=== PATIENT | male | born 1945 | race Native Hawaiian/Other Pacific Islander ===

== ENCOUNTER 2016-06-01 07:51 | Inpatient (IN) | payer MEDICARE, OTHER ==
[~2016-06-01] VITALS: Ht 172.7 cm; Wt 68.0 kg
[2016-06-01] VITALS (13 sets, daily range): BP systolic 107–141; BP diastolic 56–77; PULSE 62–89; RESP 18; TEMP 97.4–97.9; O2SAT 98–100
--- NOTE | 2016-06-01 08:04 | PD ---
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 EMS noted the patient's heart rate to be in the 30s, and EKG performed by them shows a ventricular escape rhythm with a rate of 37. He was administered 1 mg of atropine with improvement in heart rate. The patient was apparently using the restroom when the event occurred. He remembers becoming diaphoretic. He denies chest pain. No injuries. No fevers or recent illness. No known history of cardiopulmonary disease. Heart rate is in the 80s upon arrival to the emergency department. He is here on vacation from [place]. Case discussed with the patient's daughter who is a physician in [place]. Her name is [place] and her phone number is [phone]. She tells me that the patient has a history of vasovagal episodes while using the restroom. She also tells me that according to the , this episode did not occur while he was in the restroom, and actually occurred while the patient was in bed. The patient' s found the patient to be unresponsive. [facility] Social History Tobacco Use: No Allergies-Medications (Allergen,Severity, Reaction): Coded Allergies: Penicillin (Verified Allergy, Severe, Anaphylaxis, 06/01/16) Aztreonam (Verified Allergy, Intermediate, Rash, 06/01/16) Bactrim (Verified Allergy, Intermediate, Rash, 06/01/16) Ciprofloxacin (Verified Allergy, Intermediate, Rash, 06/01/16) Clindamycin (Verified Allergy, Intermediate, Rash, 06/01/16) Levofloxacin (Verified Allergy, Intermediate, Rash, 06/01/16) Salicylates (Verified Allergy, Intermediate, RASH , 06/01/16) Sulfa (Verified Allergy, Intermediate, RASH, 06/01/16) Reported Meds & Prescriptions Reported Meds & Active Scripts Active Reported Aleve (Naproxen Sodium) 220 Mg Tab 220 Mg PO DAILY PRN Sf 5000 Plus (Sodium Fluoride (Dental)) 1.1 % Cre 1 Applic MT DAILY Systane Balance Yazidi Opth Drops (Propylene Glycol Opth Drops) 0.6% Soln 1 Drop EACH EYE TID PRN Levothyroxine (Levothyroxine Sodium) 75 Mcg Tab 75 Mcg PO DAILY Folic Acid 400 Mcg Tab 400 Mcg PO DAILY Bentyl (Dicyclomine HCl) 10 Mg Cap 10 Mg PO DAILY PRN Klonopin (Clonazepam) 1 Mg Tab 1 Mg PO TID PRN Centrum (Multiple Vitamins W/ Minerals) 1 Tab 1 Tab PO DAILY Azelastine Nasal [place] (Azelastine HCl) 0.15% [place] 1 [place] EACH NARE DIRECTED PRN To each nostril. Mapap (Acetaminophen) 500 Mg Tab 500 Mg PO TID PRN Review of Systems Except as stated in HPI: all other systems reviewed are Neg Physical Exam Narrative GENERAL: Pleasant, well-developed, well-nourished, awake, alert, oriented, no acute distress. SKIN: Warm and dry. No rash. HEAD: Atraumatic. Normocephalic. EYES: Pupils equal and round. No scleral icterus. No injection or drainage. ENT: Mucous membranes pink and moist. NECK: Trachea midline. No JVD. CARDIOVASCULAR: Regular rate and rhythm. RESPIRATORY: No accessory muscle use. Clear to auscultation. Breath sounds equal bilaterally. GASTROINTESTINAL: Abdomen soft, non-tender, nondistended. MUSCULOSKELETAL: No obvious deformities. No clubbing. No cyanosis. No edema. NEUROLOGICAL: Awake and alert. No obvious cranial nerve deficits. Motor grossly within normal limits. Normal speech. PSYCHIATRIC: Appropriate mood and affect; insight and judgment normal. Data Data Last Documented VS Vital Signs Date Time Temp Pulse Resp B/P Pulse Ox O2 Delivery O2 Flow Rate FiO2 06/01/16 08:02 97.9 80 18 122/70 99 Room Air Orders Electrocardiogram (06/01/16 07:58) Basic Metabolic Panel (Bmp) (06/01/16 07:58) Ckmb (Isoenzyme) Profile (06/01/16 07:58) Complete Blood Count With Diff (06/01/16 07:58) Magnesium (Mg) (06/01/16 07:58) Prothrombin Time / Inr (Pt) (06/01/16 07:58) Act Partial Throm Time (Ptt) (06/01/16 07:58) Troponin I (06/01/16 07:58) Chest, Single Ap (06/01/16 07:58) Ecg Monitoring (06/01/16 07:58) Iv Access Insert/Monitor (06/01/16 07:58) Oximetry (06/01/16 07:58) Thyroid Stimulating Hormone (06/01/16 07:58) Free Thyroxine (T4) (06/01/16 07:58) CKMB (06/01/16 08:15) CKMB% (06/01/16 08:15) Admit Order (Ed Use Only) (06/01/16 09:25) Labs Laboratory Tests Test 06/01/16 08:15 White Blood Count 5.5 TH/MM3 Red Blood Count 4.25 MIL/MM3 Hemoglobin 12.3 GM/DL Hematocrit 36.6 % Mean Corpuscular Volume 86.3 FL Mean Corpuscular Hemoglobin 28.9 PG Mean Corpuscular Hemoglobin 33.5 % Concent Red Cell Distribution Width 12.9 % Platelet Count 217 TH/MM3 Mean Platelet Volume 8.2 FL Neutrophils (%) (Auto) 45.7 % Lymphocytes (%) (Auto) 36.0 % Monocytes (%) (Auto) 8.6 % Eosinophils (%) (Auto) 8.8 % Basophils (%) (Auto) 0.9 % Neutrophils # (Auto) 2.5 TH/MM3 Lymphocytes # (Auto) 2.0 TH/MM3 Monocytes # (Auto) 0.5 TH/MM3 Eosinophils # (Auto) 0.5 TH/MM3 Basophils # (Auto) 0.1 TH/MM3 CBC Comment DIFF FINAL Differential Comment Prothrombin Time 10.6 SEC Prothromb Time International 1.0 RATIO Ratio Activated Partial 27.1 SEC Thromboplast Time Sodium Level 140 MEQ/L Potassium Level 4.2 MEQ/L Chloride Level 106 MEQ/L Carbon Dioxide Level 26.7 MEQ/L Anion Gap 7 MEQ/L Blood Urea Nitrogen 18 MG/DL Creatinine 1.04 MG/DL Estimat Glomerular Filtration 71 ML/MIN Rate Random Glucose 129 MG/DL Calcium Level 8.4 MG/DL Magnesium Level 2.2 MG/DL Total Creatine Kinase 170 U/L Creatine Kinase MB 2.5 NG/ML Troponin I LESS THAN 0.02 NG/ML Free Thyroxine 0.83 NG/DL Thyroid Stimulating Hormone 4.890 uIU/ML [address] [place] [address] Medical Decision Making Medical Screen Exam Complete: Yes Emergency Medical Condition: Yes Interpretation(s) EKG: Sinus, rate 71, normal axis, normal intervals, Q waves in inferior leads, no acute ischemic abnormality. Differential Diagnosis Bradycardia dysrhythmia, third-degree heart block, electrolyte abnormality, syncope, ACS, hypothyroidism Narrative Course The patient's daughter is a physician in [place]. Her name is [place] and her phone number is [phone]. Initial vital signs show heart rate 89, blood pressure 122/70, pulse ox 99% on room air, axillary temp of 97.9F. CBC is essentially unremarkable. CMP is essentially unremarkable. Cardiac enzymes are negative. TSH is 4.89, free T4 is 0.83. Chest x-ray interpreted by me shows no free air, no infiltrate, no pneumothorax. The patient was placed on telemetry monitoring while in the emergency Department in heart rate remained between 60 and 80, sinus. Because his initial EKG in the field showed a ventricular escape rhythm in the 30s, he will be admitted for overnight observation for telemetry monitoring. Case discussed with hospitalist Dr. Roblero who will admit the patient to his service. Diagnosis Primary Impression: Symptomatic bradycardia Additional Impression: Syncope Qualified Code: R55 - Syncope, unspecified syncope type Admitting Information Admitting Physician Requests: Observation Sam Buenrostro MD Jun 01, 2016 08:04
[2016-06-01 08:24] LABS: AUTOMATED NEUTROPHIL # 2.5 TH/MM3 (1.8-7.7); BASOPHIL # 0.1 TH/MM3 (0-0.2); BASOPHIL % 0.9 % (0.0-2.0); EOSINOPHIL # 0.5 TH/MM3 (0-0.4); EOSINOPHIL % 8.8 % (0.0-4.0); HEMATOCRIT 36.6 % (39.0-51.0); HEMO FLAGS DIFF FINAL; MEAN CELL VOLUME 86.3 FL (80.0-100.0); MEAN CORPUSCULAR HEMOGLOBIN 28.9 PG (27.0-34.0); MEAN CORPUSCULAR HGB CONC 33.5 % (32.0-36.0); MONO % 8.6 % (0.0-8.0); NEUT % 45.7 % (16.0-70.0); PLATELET COUNT 217 TH/MM3 (150-450); RED BLOOD COUNT 4.25 MIL/MM3 (4.50-5.90); RED CELL DISTRIBUTION WIDTH 12.9 % (11.6-17.2); WHITE BLOOD COUNT 5.5 TH/MM3 (4.0-11.0)
[2016-06-01 08:34] LABS: ANION GAP 7 MEQ/L (5-15); BICARBONATE 26.7 MEQ/L (21.0-32.0); BLOOD UREA NITROGEN 18 MG/DL (7-18); CHLORIDE 106 MEQ/L (98-107); GLOMERULAR FILTRATION RATE 71 ML/MIN (>89); MAGNESIUM 2.2 MG/DL (1.5-2.5); POTASSIUM 4.2 MEQ/L (3.5-5.1); SODIUM (NA) 140 MEQ/L (136-145)
[2016-06-01 08:38] LABS: CREATINE KINASE 170 U/L (39-308)
[2016-06-01 08:41] LABS: APTT (PATIENT) 27.1 SEC (24.3-30.1); PROTHROMBIN TIME - PATIENT 10.6 SEC (9.8-11.6)
[2016-06-01 08:50] LABS: CKMB 2.5 NG/ML (0.5-3.6)
[2016-06-01 08:54] LABS: FREE T4 0.83 NG/DL (0.76-1.46)
--- NOTE | 2016-06-01 09:15 | RADRPT ---
EXAM DATE/TIME: 06/01/2016 08:29 [facility] COMPARISON: No previous studies available for comparison. INDICATIONS : Syncope, Patient c/o nausea and vomiting. MEDICAL HISTORY : None. SURGICAL HISTORY : None. ENCOUNTER: Initial ACUITY: 1 day PAIN SCORE: 0/10 LOCATION: Bilateral chest FINDINGS: A single view of the chest demonstrates the lungs to be symmetrically aerated without evidence of mas s, infiltrate or effusion. The cardiomediastinal contours are unremarkable. Osseous structures are intact. CONCLUSION: Normal examination. Linda Gillette MD on June 01, 2016 at 9:14 Board Certified Radiologist. This report was verified electronically.
--- NOTE | 2016-06-01 09:50 | HHI.HP ---
[facility]Staff Admission Diagnosis symptomatic bradycardia, syncope Diagnoses: (1) Syncope (2) Symptomatic bradycardia (3) Hypothyroidism Chief Complaint: Syncopal episode Travel History International Travel<30 Days: No Contact w/Intl Traveler <30 Da: No Traveled to Known Affected Are: No History of Present Illness The patient is a 70-year-old male who presented to the emergency department following a syncopal episode. Apparently the patient was lying in bed and his found him to be unresponsive. As he awakened he was acting "strange". He does not recall any of the events surrounding this episode. He has had previous syncopal episodes over the past few years, generally associated with urination. He does not recall getting up to urinate this time. He denies chest pain or dyspnea. Has not had any lightheadedness or dizziness. He has a significant history for oral cancer requiring multiple surgeries. He is reportedly cancer free at this time. He denies any cardiac history. Review of Systems Constitutional: DENIES: Fever, Chills, Night Sweats Eyes: DENIES: Blurred vision, Vision loss Ears, nose, mouth, throat: DENIES: Hearing loss Respiratory: DENIES: Cough, Wheezing, Sputum production, Shortness of breath Cardiovascular: COMPLAINS OF: Syncope, DENIES: Chest pain, Palpitations, Dyspnea on Exertion, Lower Extremity Edema Gastrointestinal: DENIES: Abdominal pain, Constipation, Diarrhea, Nausea, Vomiting Genitourinary: DENIES: Urinary frequency, Urinary incontinence, Urgency, Hematuria, Dysuria, Nocturia Musculoskeletal: DENIES: Joint pain, Muscle aches Integumentary: DENIES: Pruritus, Rash Hematologic/lymphatic: DENIES: Bruising Neurologic: DENIES: Headache Past Family Social History Past Medical History Hypothyroidism History of oral cancer History of osteomyelitis Past Surgical History Multiple jaw surgeries including reconstructive surgery with flap taken from his left arm Left knee meniscus repair Reported Medications Tylenol as needed Synthroid 75 g daily Clonazepam 1 mg 3 times a day as needed Folic acid 1 mg daily Bentyl 10 mg as needed Multivitamin daily Allergies: Coded Allergies: Penicillin (Verified Allergy, Severe, Anaphylaxis, 06/01/16) Aztreonam (Verified Allergy, Intermediate, Rash, 06/01/16) Bactrim (Verified Allergy, Intermediate, Rash, 06/01/16) Ciprofloxacin (Verified Allergy, Intermediate, Rash, 06/01/16) Clindamycin (Verified Allergy, Intermediate, Rash, 06/01/16) Levofloxacin (Verified Allergy, Intermediate, Rash, 06/01/16) Salicylates (Verified Allergy, Intermediate, RASH , 06/01/16) Sulfa (Verified Allergy, Intermediate, RASH, 06/01/16) Family History Diabetes Father at age 90 with heart problems Social History Denies tobacco, alcohol, or illicit drug use. Physical Exam Vital Signs Vital Signs Date Time Temp Pulse Resp B/P Pulse Ox O2 Delivery O2 Flow Rate FiO2 06/01/16 08:02 97.9 80 18 122/70 99 Room Air 06/01/16 08:02 85 18 99 Room Air 06/01/16 07:55 97.9 89 18 122/70 99 Physical Exam GENERAL: Well-nourished, well-developed male in no acute distress. HEENT: Normocephalic, atraumatic. Pupils equal, round and reactive. Extraocular movements intact. No scleral icterus. No injection or drainage. Oropharynx is clear. Mucous membranes are moist. Left side of the face/mouth/neck show surgical changes. CARDIOVASCULAR: Bradycardic. RESPIRATORY: Clear to auscultation. No wheezes, rales, or rhonchi. Breathing is non-labored. GASTROINTESTINAL: Abdomen soft, non-tender, nondistended. EXTREMITIES: No lower extremity edema. No calf tenderness. PSYCH: Alert and oriented x 3. Laboratory Laboratory Tests Test 06/01/16 08:15 White Blood Count 5.5 Red Blood Count 4.25 Hemoglobin 12.3 Hematocrit 36.6 Mean Corpuscular Volume 86.3 Mean Corpuscular Hemoglobin 28.9 Mean Corpuscular Hemoglobin 33.5 Concent Red Cell Distribution Width 12.9 Platelet Count 217 Mean Platelet Volume 8.2 Neutrophils (%) (Auto) 45.7 Lymphocytes (%) (Auto) 36.0 Monocytes (%) (Auto) 8.6 Eosinophils (%) (Auto) 8.8 Basophils (%) (Auto) 0.9 Neutrophils # (Auto) 2.5 Lymphocytes # (Auto) 2.0 Monocytes # (Auto) 0.5 Eosinophils # (Auto) 0.5 Basophils # (Auto) 0.1 CBC Comment DIFF FINAL Differential Comment Prothrombin Time 10.6 Prothromb Time International 1.0 Ratio Activated Partial 27.1 Thromboplast Time Sodium Level 140 Potassium Level 4.2 Chloride Level 106 Carbon Dioxide Level 26.7 Anion Gap 7 Blood Urea Nitrogen 18 Creatinine 1.04 Estimat Glomerular Filtration 71 Rate Random Glucose 129 Calcium Level 8.4 Magnesium Level 2.2 Total Creatine Kinase 170 Creatine Kinase MB 2.5 Troponin I LESS THAN 0.02 Free Thyroxine 0.83 Thyroid Stimulating Hormone 4.890 3rd Gen Result Diagram: 06/01/16 0815 06/01/16 0815 Imaging Last Impressions Chest X-Ray 06/01/16 0758 Signed Impressions: Service Date/Time: Wednesday, June 01, 2016 08:29 - CONCLUSION: Normal examination. Linda Gillette MD Assessment and Plan Assessment and Plan 1. Syncope, symptomatic bradycardia: Patient noted to have heart rate in the 30s by Gris. Was given atropine 1 with improvement in heart rate to the 80s. Admit to [facility]. Consult cardiology. Monitor on telemetry. 2. Hypothyroidism: TSH is elevated. Continue Synthroid. 3. DVT prophylaxis: Heparin. I spoke with the patient's daughter, [place], who is a physician in [place]. She confirms much of her father's medical history including the oral cancer. She also describes the vasovagal episodes the patient has had in the past associated with urination. Her phone number is [phone]. Problem Qualifiers (1) Syncope: Qualified Code: R55 - Syncope, unspecified syncope type Juan Luis Roblero MD Jun 01, 2016 09:50
[2016-06-01] MEDS ORDERED: MAGNESIUM HYDROXIDE SUSP 30 ML CUP PO PRN (10:30)
[2016-06-01] MEDS ORDERED: ONDANSETRON HCL 4 MG/2 ML VIAL IVP PRN (10:30)
[2016-06-01] MEDS ORDERED: NALOXONE HCL 0.4 MG/ML AMP IV PRN (10:30)
[2016-06-01] MEDS ORDERED: SODIUM CHLORIDE 0.9% FLUSH 5 ML FLUSH FLUSH PRN (10:30)
[2016-06-01] MEDS ORDERED: [UNRECOGNIZED DRUG - CODE] (10:56)
[2016-06-01] MEDS ORDERED: FOLI400T GT (10:56)
[2016-06-01] MEDS ORDERED: DICY10 GT (10:56)
[2016-06-01] MEDS ORDERED: LEVO75TA3 GT (10:56)
[2016-06-01] MEDS ORDERED: MAPA500T GT (10:56)
[2016-06-01] MEDS ORDERED: AZEL0.055 EACH NARE (10:56)
[2016-06-01] MEDS ORDERED: SYSTSOL15 EACH EYE (10:56)
[2016-06-01] MEDS ORDERED: MULT-6 GT (10:56)
[2016-06-01] MEDS ORDERED: CLON1 GT (10:56)
[2016-06-01] MEDS ORDERED: SF 51.1C GT (10:57)
[2016-06-01] MEDS ORDERED: NAPR220T95 GT (10:59)
[2016-06-01] MEDS: HEPARIN SODIUM - SQ 10,000 UNITS/ML VIAL SQ SCH ×2 (11:23→18:27)
[2016-06-01 14:44] LABS: CREATINE KINASE 164 U/L (39-308)
--- NOTE | 2016-06-01 16:26 | MB ---
cc: ANDREY NUNEZ M.D. DATE OF CONSULTATION: 06/01/2016. REASON FOR CONSULTATION: Syncope, bradycardia. 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 The patient is unsure if he was in the bathroom or simply on his way to the bathroom in the hotel room when he lost consciousness. All he can recall is that when he regained consciousness, he was lying in bed with his pounding on his chest. He reports a long history (at least 10 years) of overall rare episodes of vasovagal syncope invariably associated with urination such that he now sits down on the toilet every time he urinates. The patient cannot recall any preceding nausea, pain, or discomfort prior to losing consciousness, although he was very diaphoretic after regaining consciousness. Since coming into the hospital, he feels "just fine." In the ambulance, he was noted to be in a junctional rhythm with heart rates in the 30s. He denies chest pain, shortness of breath, palpitations, paroxysmal nocturnal dyspnea, pedal edema, fevers. PAST MEDICAL HISTORY: 1. Hypothyroidism. 2. Recurrent oral cancers status post four operations for resection. He also has undergone radiation therapy and chemotherapy at some point. His last operation was also complicated by osteomyelitis in his mandibular region. CARDIAC MEDICATIONS AT HOME: None. ALLERGIES: 1. PENICILLIN. 2. AZTREONAM. 3. BACTRIM. 4. CIPRO. 5. CLINDAMYCIN. 6. LEVAQUIN.. 7. SALICYLATES. 8. SULFA. FAMILY HISTORY: Noncontributory. SOCIAL HISTORY: The patient denies any history of alcohol OR tobacco abuse. REVIEW OF SYSTEMS: Review of systems as in the history of present illness otherwise negative or noncontributory. He also denies headache, visual changes, unilateral weakness or numbness, abdominal pain, melena, dyspepsia. PHYSICAL EXAMINATION: VITAL SIGNS: On physical examination, his blood pressure is 107/56 with a pulse of 70, respirations 18. GENERAL: In general, he is a well-developed, well-nourished male in no acute distress. HEAD, EYES, EARS, NOSE, THROAT: On HEENT examination, jugular venous pressure is normal. Carotid pulses are 2+ bilaterally and without bruits. CHEST: Examination of the chest reveals clear lung bledsoe. CARDIAC: On cardiac examination, he has a regular rhythm and rate without S3, S4 or murmur. ABDOMEN: On abdominal examination, he has a soft, nontender abdomen. Bowel sounds are present. There is no definite hepatosplenomegaly. EXTREMITIES: Examination of the extremities reveals no clubbing, cyanosis or edema. LABORATORY DATA: Laboratory data includes WBCs 5.5, hemoglobin 12.3, platelets 217,000. Potassium 4.2, BUN 18, creatinine 1.04. Troponin less than 0.02. CK 170. IMAGING STUDIES: Chest x-ray shows no acute disease. IMPRESSION: Syncope, probable symptomatic bradycardia (junctional rhythm) in this 70-year-old male with a history of recurrent oral cancers and hypothyroidism. At this time, he remains in sinus rhythm. There is no evidence for acute coronary syndrome. An EKG obtained en route to the hospital does show junctional rhythm with heart rates of ~37. I suspect his loss of consciousness was due to a bradyarrhythmia. Even if it was a vasovagal episode, which he has had problems with in the past, the episode was associated with bradycardia and he would likely benefit from pacemaker therapy. I had also a long discussion with his daughter in [place], who is a neurologist, regarding pacemaker implantation. Overall I would recommend he undergo pacemaker implantation before going back home to [place]. The nature of pacemaker implantation and the potential risks including but not limited to cardiac perforation, pneumothorax, bleeding, infection have been outlined to the patient. He agrees to proceed. PLAN: Permanent pacemaker implantation this Saturday; in light of his multiple oral surgeries and potentially compromised oral airway will recommend elective intubation prior to the procedure. MD NITHIN Ann/LILO /3:59 PM /4:17 PM MTDD
[2016-06-01] MEDS: ACETAMINOPHEN 325 MG TAB PO PRN ×2 (17:10→23:20)
--- NOTE | 2016-06-01 17:52 | EKG ---
Date Performed: 06/01/2016 Time Performed: 08:43:18 PTAGE: 70 years EKG: Sinus rhythm WITH SINUS ARRHYTHMIA INFERIOR MYOCARDIAL INFARCTION ABNORMAL ECG NO PREVIOUS TRACING DOCTOR: Babs Garces Interpretating Date/Time 06/01/2016 17:51:25
[2016-06-01 20:39] LABS: CREATINE KINASE 167 U/L (39-308)
[2016-06-01] MEDS: SODIUM CHLORIDE 0.9% FLUSH 5 ML FLUSH FLUSH SCH (20:50)
[2016-06-02] VITALS (28 sets, daily range): BP systolic 132–167; BP diastolic 68–86; PULSE 54–84; RESP 16–20; TEMP 97.5–98.6; O2SAT 97–100
[2016-06-02] MEDS: HEPARIN SODIUM - SQ 10,000 UNITS/ML VIAL SQ SCH ×3 (03:17→19:57)
[2016-06-02 06:30] LABS: BICARBONATE 27.5 MEQ/L (21.0-32.0)
[2016-06-02 06:42] LABS: AUTOMATED NEUTROPHIL # 3.3 TH/MM3 (1.8-7.7); BASOPHIL # 0.1 TH/MM3 (0-0.2); BASOPHIL % 0.9 % (0.0-2.0); EOSINOPHIL # 0.6 TH/MM3 (0-0.4); EOSINOPHIL % 9.6 % (0.0-4.0); HEMATOCRIT 37.1 % (39.0-51.0); HEMO FLAGS DIFF FINAL; LYMPH % 24.7 % (9.0-44.0); LYMPHOCYTE # 1.4 TH/MM3 (1.0-4.8); MEAN CELL VOLUME 86.8 FL (80.0-100.0); MEAN CORPUSCULAR HEMOGLOBIN 29.2 PG (27.0-34.0); MEAN CORPUSCULAR HGB CONC 33.6 % (32.0-36.0); MONO % 9.3 % (0.0-8.0); NEUT % 55.5 % (16.0-70.0); PLATELET COUNT 222 TH/MM3 (150-450); RED BLOOD COUNT 4.28 MIL/MM3 (4.50-5.90); RED CELL DISTRIBUTION WIDTH 13.3 % (11.6-17.2); WHITE BLOOD COUNT 5.9 TH/MM3 (4.0-11.0)
[2016-06-02] MEDS: SODIUM CHLORIDE 0.9% FLUSH 5 ML FLUSH FLUSH SCH ×2 (09:00→20:10)
--- NOTE | 2016-06-02 09:19 | HHI.PR ---
Subjective Remarks Follow up bradycardia. Patient denies chest pain, dyspnea, lightheadedness. Objective Vitals Vital Signs Date Time Temp Pulse Resp B/P Pulse Ox O2 Delivery O2 Flow Rate FiO2 06/02/16 06:00 60 06/02/16 05:00 59 06/02/16 04:00 58 06/02/16 03:17 97.5 65 18 156/79 99 06/02/16 03:00 64 06/02/16 02:00 61 06/02/16 01:00 76 06/02/16 00:00 67 06/02/16 00:00 97.7 77 20 163/84 97 06/01/16 23:00 71 06/01/16 22:00 74 06/01/16 21:00 73 06/01/16 20:00 80 06/01/16 20:00 97.4 73 18 141/74 100 06/01/16 19:00 64 06/01/16 18:12 70 06/01/16 17:00 62 06/01/16 16:00 64 06/01/16 15:51 62 18 129/68 98 Room Air 06/01/16 11:20 71 18 107/56 100 Room Air 06/01/16 10:44 66 18 126/76 98 Room Air I/O 06/01/16 06/01/16 06/01/16 06/02/16 06/02/16 06/02/16 07:00 15:00 23:00 07:00 15:00 23:00 Intake Total 50 ml 780 ml Balance 50 ml 780 ml Intake Oral 240 ml IV Total 0 ml Tube Feeding 50 ml 480 ml Other 60 ml # Voids 2 # Bowel Movements 1 Result Diagram: 06/02/16 0546 06/02/16 0546 Imaging Last Impressions Chest X-Ray 06/01/16 0758 Signed Impressions: Service Date/Time: Wednesday, June 01, 2016 08:29 - CONCLUSION: Normal examination. Linda Gillette MD Objective Remarks General: No acute distress. Heart: Regular rate and rhythm. No murmur. Lungs: Clear to auscultation bilaterally. No wheezes, rales, or rhonchi. Breathing is nonlabored. Abdomen: Soft, nontender, nondistended. Extremities: No lower extremity edema. Psych: Alert and oriented. Urinary Catheter: No Vascular Central Line Catheter: No A/P Problem List: (1) Syncope ICD Code: R55 Status: Acute (2) Symptomatic bradycardia ICD Code: R00.1 Status: Acute (3) Hypothyroidism ICD Code: E03.9 Status: Chronic (4) History of oral cancer ICD Code: Z85.819 Status: Chronic Assessment and Plan 1. Syncope, symptomatic bradycardia: Patient noted to have heart rate in the 30s by EVAC. Was given atropine 1 with improvement in heart rate to the 80s. Continue telemetry monitoring. Appreciate cardiology recommendations. Planning for pacemaker placement on Saturday. Discussed with Dr. Davidson. 2. Hypothyroidism: TSH is elevated. Continue Synthroid. 3. DVT prophylaxis: Heparin. 4. History of oral cancer: Patient on tube feedings chronically. Problem Qualifiers (1) Syncope: Qualified Code: R55 - Syncope, unspecified syncope type Juan Luis Roblero MD Jun 02, 2016 09:19
--- NOTE | 2016-06-02 09:22 | PD.CARD.PN ---
Subjective Subjective Remarks Denies recurrent dizziness or syncope. No pain, dyspnea, palpitations. Slept well. Objective Medications Item Value Date Time Heparin Sodium 5,000 units 06/01/16 1100 (Porcine) Q8H/SQ 06/02/16 0317 (Heparin Inj) Vital Signs / I&O Vital Signs Date Time Temp Pulse Resp B/P Pulse Ox O2 Delivery O2 Flow Rate FiO2 06/02/16 06:00 60 06/02/16 05:00 59 06/02/16 04:00 58 06/02/16 03:17 97.5 65 18 156/79 99 06/02/16 03:00 64 06/02/16 02:00 61 06/02/16 01:00 76 06/02/16 00:00 67 06/02/16 00:00 97.7 77 20 163/84 97 06/01/16 23:00 71 06/01/16 22:00 74 06/01/16 21:00 73 06/01/16 20:00 80 06/01/16 20:00 97.4 73 18 141/74 100 06/01/16 19:00 64 06/01/16 18:12 70 06/01/16 17:00 62 06/01/16 16:00 64 06/01/16 15:51 62 18 129/68 98 Room Air 06/01/16 11:20 71 18 107/56 100 Room Air 06/01/16 10:44 66 18 126/76 98 Room Air I/O 06/01/16 06/01/16 06/01/16 06/02/16 06/02/16 06/02/16 07:00 15:00 23:00 07:00 15:00 23:00 Intake Total 50 ml 780 ml Balance 50 ml 780 ml Intake Oral 240 ml IV Total 0 ml Tube Feeding 50 ml 480 ml Other 60 ml # Voids 2 # Bowel Movements 1 Physical Exam GENERAL: Well developed, well nourished. No acute distress. HEENT: Jugular venous pressure is normal. CHEST: Lungs clear to auscultation bilaterally. Unlabored respiratory effort. CARDIAC: Regular rate and rhythm without S3, S4, or murmur. ABDOMEN: Soft, nontender, no hepatosplenomegaly. Bowel sounds present. EXTREMITIES: No clubbing, cyanosis, or edema. Laboratory Laboratory Tests Test 06/01/16 06/01/1606/02/17 14:09 19:56 05:46 Total Creatine Kinase 164 U/L 167 U/L Troponin I LESS THAN 0.02 LESS THAN 0.02 NG/ML NG/ML White Blood Count 5.9 TH/MM3 Red Blood Count 4.28 MIL/MM3 Hemoglobin 12.5 GM/DL Hematocrit 37.1 % Mean Corpuscular Volume 86.8 FL Mean Corpuscular Hemoglobin 29.2 PG Mean Corpuscular Hemoglobin 33.6 % Concent Red Cell Distribution Width 13.3 % Platelet Count 222 TH/MM3 Mean Platelet Volume 8.6 FL Neutrophils (%) (Auto) 55.5 % Lymphocytes (%) (Auto) 24.7 % Monocytes (%) (Auto) 9.3 % Eosinophils (%) (Auto) 9.6 % Basophils (%) (Auto) 0.9 % Neutrophils # (Auto) 3.3 TH/MM3 Lymphocytes # (Auto) 1.4 TH/MM3 Monocytes # (Auto) 0.5 TH/MM3 Eosinophils # (Auto) 0.6 TH/MM3 Basophils # (Auto) 0.1 TH/MM3 CBC Comment DIFF FINAL Differential Comment Sodium Level 141 MEQ/L Potassium Level 4.0 MEQ/L Chloride Level 105 MEQ/L Carbon Dioxide Level 27.5 MEQ/L Anion Gap 9 MEQ/L Blood Urea Nitrogen 20 MG/DL Creatinine 0.91 MG/DL Estimat Glomerular Filtration 82 ML/MIN Rate Random Glucose 96 MG/DL Calcium Level 8.7 MG/DL Assessment and Plan Problem List: (1) Symptomatic bradycardia Assessment and Plan: Stable overnight. No further syncope. Remains in NSR. The syncopal episode may have indeed been vasovagal mediated, but evidence suggests a cardioinhibitory component and he will likely benefit from pacemaker therapy. He also has a very long history of intermittent micturition syncope, also likely vasovagal mediated. REC permanent pacemaker insertion Saturday, will see patient PRN tomorrow Code Status full code Discussed Condition With patient and his daughter River Davidson MD Jun 02, 2016 09:22
[2016-06-02] MEDS ORDERED: PROPYLENE GLYCOL EACH EYE PRN (10:15)
[2016-06-02] MEDS: FOLIC ACID 1 MG TAB PO SCH (10:25)
--- NOTE | 2016-06-02 17:54 | EC ---
Study Study Date:06/02/2016 STUDY CONCLUSIONS SUMMARY - Procedure narrative: Transthoracic echocardiography. Image quality was suboptimal. The study was technically limited. Scanning was performed from the parasternal, apical, and subcostal acoustic windows. - Left ventricle: The cavity size was normal. Wall thickness was normal. Systolic function was vigorous. The estimated ejection fraction was in the range of 65% to 70%. - Aortic valve: Valve area: 2.14cm^2 (Vmax). - Mitral valve: Mild regurgitation. If LV function is below 40, please consider prescribing an ACEI or ARB or document rationale for non-use. PROCEDURE DATA STUDY STATUS: Elective. Procedure: Transthoracic echocardiography. Image quality was suboptimal. The study was technically limited. Scanning was performed from the parasternal, apical, and subcostal acoustic windows. Study completion: The patient tolerated the procedure well. Transthoracic echocardiography. M-mode, complete 2D, complete spectral Doppler, and color Doppler. Patient status: Inpatient. CARDIAC ANATOMY LEFT VENTRICLE: The cavity size was normal. Wall thickness was normal. Systolic function was vigorous. The estimated ejection fraction was in the range of 65% to 70%. Images were inadequate for LV wall motion assessment. AORTIC VALVE: Poorly visualized. Trileaflet; normal thickness leaflets. Doppler: Transvalvular velocity was within the normal range. There was no stenosis. No regurgitation. Valve area: 2.14cm^2 (Vmax). AORTA: Aortic root: The aortic root was normal in size. MITRAL VALVE: Structurally normal valve. Doppler: Transvalvular velocity was within the normal range. There was no evidence for stenosis. Mild regurgitation. Peak gradient: 2mm Hg (D). LEFT ATRIUM: The atrium was at the upper limits of normal in size. RIGHT VENTRICLE: The cavity size was normal. Wall thickness was normal. PULMONIC VALVE: Doppler: Transvalvular velocity was within the normal range. There was no evidence for stenosis. No regurgitation. TRICUSPID VALVE: Structurally normal valve. Doppler: Transvalvular velocity was within the normal range. Trace regurgitation. PULMONARY ARTERY: The main pulmonary artery was normal-sized. Systolic pressure was within the normal range. RIGHT ATRIUM: The atrium was normal in size. PERICARDIUM: There was no pericardial effusion. SYSTEMIC VEINS: Inferior vena cava: The vessel was normal in size. BASIC MEASUREMENTS ADULT NORMAL Left ventricle LV internal dimension, ED, chordal level, *38.8 mm 43-52 PLAX LV internal dimension, ES, chordal level, 25.8 mm 23-38 PLAX Fractional shortening, chordal level, PLAX 34 % >29 LV posterior wall thickness, ED 8.38 mm IVS/LVPW ratio, ED 1.07 <1.3 Ventricular septum Septal thickness, ED 8.94 mm Aortic valve Leaflet separation 20 mm 15-26 BASIC MEASUREMENTS ADULT NORMAL Aortic valve Leaflet separation 20 mm 15-26 Aorta Root diameter, ED 22 mm 20-37 Left atrium Anterior-posterior dimension, ES 40 mm 19-40 LA/aortic root ratio 1.82 DOPPLER MEASUREMENTS ADULT NORMAL Main pulmonary artery Pressure, S 21 mm Hg =30 Aortic valve Peak velocity, S 130 cm/s Valve area, Vmax 2.14 cm^2 Mitral valve Peak E-wave velocity 74 cm/s Peak A-wave velocity 84.9 cm/s Deceleration time 165 ms 150-230 Peak gradient, D 2 mm Hg Peak E/A ratio 0.9 Maximal regurgitant velocity 229 cm/s Tricuspid valve Regurgitant peak velocity 148 cm/s Peak RV-RA gradient, S 9 mm Hg Maximal regurgitant velocity 148 cm/s Systemic veins Estimated CVP 10 mm Hg Right ventricle RV pressure, S 21 mm Hg <30 LEGEND: Mean values are shown as u=mean value. Asterisk (*) sanchez values outside specified normal range. Prepared and signed by Mati Olivo [id number]
[2016-06-02] MEDS: ACETAMINOPHEN 325 MG TAB PO PRN (21:45)
[2016-06-03] VITALS (24 sets, daily range): BP systolic 143–166; BP diastolic 69–92; PULSE 59–86; RESP 16–18; TEMP 97.5–98; O2SAT 96–100
[2016-06-03] MEDS: HEPARIN SODIUM - SQ 10,000 UNITS/ML VIAL SQ SCH ×3 (03:33→20:23)
[2016-06-03] MEDS: LEVOTHYROXINE SODIUM 75 MCG TAB PO SCH (04:13)
[2016-06-03] MEDS: FOLIC ACID 1 MG TAB PO SCH (09:00)
--- NOTE | 2016-06-03 09:49 | HHI.PR ---
Subjective Remarks Follow up bradycardia. Patient states that he feels weak today. Denies chest pain, dyspnea. Objective Vitals Vital Signs Date Time Temp Pulse Resp B/P Pulse Ox O2 Delivery O2 Flow Rate FiO2 06/03/16 06:00 66 06/03/16 05:00 73 06/03/16 04:00 62 06/03/16 03:33 97.8 79 16 143/69 97 06/03/16 03:00 70 06/03/16 02:00 59 06/03/16 01:00 61 06/03/16 00:00 74 06/02/16 23:15 98.6 77 20 160/86 100 06/02/16 23:00 74 06/02/16 22:00 80 06/02/16 21:00 80 06/02/16 20:00 98.0 72 20 167/86 100 06/02/16 20:00 72 06/02/16 19:00 83 06/02/16 18:00 77 06/02/16 17:00 73 06/02/16 16:00 75 06/02/16 15:45 98.0 72 18 152/74 98 06/02/16 15:00 64 06/02/16 14:00 59 06/02/16 13:00 60 06/02/16 12:00 62 06/02/16 11:45 97.8 68 18 132/68 100 06/02/16 11:00 78 06/02/16 10:00 74 I/O 06/02/16 06/02/16 06/02/16 06/03/16 06/03/16 06/03/16 07:00 15:00 23:00 07:00 15:00 23:00 Intake Total 780 ml 1000 ml 980 ml Output Total 750 ml Balance 780 ml 250 ml 980 ml Intake Oral 240 ml 1000 ml 240 ml IV Total 0 ml Tube Feeding 480 ml 620 ml Other 60 ml 120 ml Output Urine Total 750 ml # Voids 2 2 2 # Bowel Movements 1 2 0 Result Diagram: 06/02/1646 06/02/16 0546 Objective Remarks General: No acute distress. Heart: Regular rate and rhythm. No murmur. Lungs: Clear to auscultation bilaterally. No wheezes, rales, or rhonchi. Breathing is nonlabored. Abdomen: Soft, nontender, nondistended. Extremities: No lower extremity edema. Psych: Alert and oriented. Urinary Catheter: No Vascular Central Line Catheter: No A/P Problem List: (1) Syncope ICD Code: R55 Status: Acute (2) Symptomatic bradycardia ICD Code: R00.1 Status: Acute (3) Hypothyroidism ICD Code: E03.9 Status: Chronic (4) History of oral cancer ICD Code: Z85.819 Status: Chronic Assessment and Plan 1. Syncope, symptomatic bradycardia: Patient noted to have heart rate in the 30s by EVAC. Was given atropine 1 with improvement in heart rate to the 80s. Continue telemetry monitoring. Appreciate cardiology recommendations. Planning for pacemaker placement tomorrow. 2. Hypothyroidism: TSH is elevated. Continue Synthroid. 3. DVT prophylaxis: Heparin. 4. History of oral cancer: Patient on tube feedings chronically. Problem Qualifiers (1) Syncope: Qualified Code: R55 - Syncope, unspecified syncope type Juan Luis Roblero MD Jun 03, 2016 09:49
--- NOTE | 2016-06-03 10:11 | PD.CARD.PN ---
Subjective Subjective Remarks Mild to moderate right sided headache. No nausea, abdominal pain. Slept well. No recurrent syncope, dizziness. No CP, dyspnea, palpitations. Objective Medications Item Value Date Time Heparin Sodium 5,000 units 06/01/16 1100 (Porcine) Q8H/SQ 06/03/16 0333 (Heparin Inj) Vital Signs / I&O Vital Signs Date Time Temp Pulse Resp B/P Pulse Ox O2 Delivery O2 Flow Rate FiO2 06/03/16 06:00 66 06/03/16 05:00 73 06/03/16 04:00 62 06/03/16 03:33 97.8 79 16 143/69 97 06/03/16 03:00 70 06/03/16 02:00 59 06/03/16 01:00 61 06/03/16 00:00 74 06/02/16 23:15 98.6 77 20 160/86 100 06/02/16 23:00 74 06/02/16 22:00 80 06/02/16 21:00 80 06/02/16 20:00 98.0 72 20 167/86 100 06/02/16 20:00 72 06/02/16 19:00 83 06/02/16 18:00 77 06/02/16 17:00 73 06/02/16 16:00 75 06/02/16 15:45 98.0 72 18 152/74 98 06/02/16 15:00 64 06/02/16 14:00 59 06/02/16 13:00 60 06/02/16 12:00 62 06/02/16 11:45 97.8 68 18 132/68 100 06/02/16 11:00 78 I/O 06/02/16 06/02/16 06/02/16 06/03/16 06/03/16 06/03/16 07:00 15:00 23:00 07:00 15:00 23:00 Intake Total 780 ml 1000 ml 980 ml Output Total 750 ml Balance 780 ml 250 ml 980 ml Intake Oral 240 ml 1000 ml 240 ml IV Total 0 ml Tube Feeding 480 ml 620 ml Other 60 ml 120 ml Output Urine Total 750 ml # Voids 2 2 2 # Bowel Movements 1 2 0 Physical Exam GENERAL: Well developed, well nourished. No acute distress. HEENT: Jugular venous pressure is normal. CHEST: Lungs clear to auscultation bilaterally. Unlabored respiratory effort. CARDIAC: Regular rate and rhythm without S3, S4, or murmur. ABDOMEN: Soft, nontender, no hepatosplenomegaly. Bowel sounds present. EXTREMITIES: No clubbing, cyanosis, or edema. Assessment and Plan Problem List: (1) Symptomatic bradycardia Assessment and Plan: Stable overnight. No further syncope. Remains in NSR. The syncopal episode may have indeed been vasovagal mediated, but evidence suggests a cardioinhibitory component and he will likely benefit from pacemaker therapy. He also has a very long history of intermittent micturition syncope, also likely vasovagal mediated. Echo yesterday unremarkable. REC permanent pacemaker insertion Saturday; will rec prophylactic intubation for the surgery given his small airway as a result of multiple surgeries for CA Code Status full code Discussed Condition With patient River Davidson MD Jun 03, 2016 10:11
[2016-06-03] MEDS: SODIUM CHLORIDE 0.9% FLUSH 5 ML FLUSH FLUSH SCH ×2 (14:13→21:00)
[2016-06-03] MEDS: MULTIVITAMINS/MINERALS THERAPEUTIC TAB PEG SCH (14:13)
[2016-06-03] MEDS: ACETAMINOPHEN 325 MG TAB PO PRN ×2 (14:23→23:40)
[2016-06-03] MEDS: POVIDONE IODINE 5% (ANTISEPSIS KIT) 4 APPLICATIONS TOPICAL SCH (21:00)
[2016-06-03] MEDS: CHLORHEXIDINE GLUCONATE 2 % 1 PACK (2 CLOTHS) TOPICAL SCH (21:00)
[2016-06-03] MEDS: MUPIROCIN 2% OINT 1 APPLIC/GM SYR EACH NARE SCH (21:55)
[2016-06-04] VITALS (22 sets, daily range): BP systolic 107–186; BP diastolic 56–88; PULSE 52–103; RESP 16–23; TEMP 97.4–98; O2SAT 98–100
[2016-06-04] MEDS: HEPARIN SODIUM - SQ 10,000 UNITS/ML VIAL SQ SCH ×3 (03:00→20:42)
[2016-06-04] MEDS ORDERED: ATROPINE SULFATE 1 MG/10 ML SYRINGE ONE (03:27)
[2016-06-04] MEDS ORDERED: ATROPINE SULFATE 1 MG/ML VIAL IV PUSH ONE (03:45)
[2016-06-04] MEDS: SODIUM CHLOR 0.9% 1000 ML INJ 1,000 ML IV SCH ×2 (03:45→15:30)
[2016-06-04] MEDS ORDERED: ATROPINE SULFATE 1 MG/ML VIAL IV PUSH PRN (03:45)
[2016-06-04] MEDS ORDERED: SODIUM CHLOR 0.9% 250 ML INJ 250 ML IV ONE (03:45)
[2016-06-04] MEDS ORDERED: INSULIN HUMAN REGULAR 1,000 UNITS/10 ML VIAL SQ PRN (04:45)
[2016-06-04] MEDS: LACTATED RINGER'S 1000 ML IV SCH (04:45)
[2016-06-04] MEDS ORDERED: SODIUM CHLORID 0.9% 500 ML IV SCH (04:45)
[2016-06-04] MEDS: LEVOTHYROXINE SODIUM 75 MCG TAB PO SCH (06:30)
--- NOTE | 2016-06-04 08:16 | HHI.PR ---
Subjective Remarks Follow up bradycardia. Patient had another episode overnight of bradycardia into the 30s. He was given IV fluid bolus and atropine. Heart rate improved to the 60s. Patient was responsive the entire time. He has no complaints at this time. Denies chest pain, palpitations, dyspnea. Objective Vitals Vital Signs Date Time Temp Pulse Resp B/P Pulse Ox O2 Delivery O2 Flow Rate FiO2 06/04/16 07:00 57 06/04/16 06:00 65 06/04/16 05:00 52 06/04/16 04:00 84 18 141/75 98 06/04/16 04:00 79 06/04/16 03:00 53 06/04/16 02:00 63 06/04/16 01:00 58 06/04/16 00:00 64 06/04/16 00:00 98.0 70 18 146/80 100 06/03/16 23:00 68 06/03/16 20:00 97.5 63 18 166/86 100 06/03/16 20:00 73 06/03/16 19:00 70 06/03/16 18:00 72 06/03/16 17:00 74 06/03/16 16:00 68 06/03/16 15:30 97.6 83 18 158/81 97 06/03/16 15:00 66 06/03/16 14:00 72 06/03/16 13:00 72 06/03/16 12:00 70 06/03/16 12:00 98.0 68 18 158/84 96 06/03/16 11:00 72 06/03/16 10:00 64 06/03/16 09:00 86 I/O 06/03/16 06/03/16 06/03/16 06/04/16 06/04/16 06/04/16 07:00 15:00 23:00 07:00 15:00 23:00 Intake Total 980 ml 1060 ml 488 ml Output Total 900 ml Balance 980 ml 160 ml 488 ml Intake Oral 240 ml 100 ml IV Total 488 ml Tube Feeding 620 ml 960 ml Other 120 ml Output Urine Total 900 ml # Voids 2 3 # Bowel Movements 0 2 Result Diagram: 06/02/16 0546 06/02/16 0546 Imaging Last Impressions Chest X-Ray 06/01/16 0758 Signed Impressions: Service Date/Time: Wednesday, June 01, 2016 08:29 - CONCLUSION: Normal examination. Linda Gillette MD Objective Remarks General: No acute distress. Heart: Regular rate and rhythm. No murmur. Lungs: Clear to auscultation bilaterally. No wheezes, rales, or rhonchi. Breathing is nonlabored. Abdomen: Soft, nontender, nondistended. PEG tube in place. Extremities: No lower extremity edema. Psych: Alert and oriented. Urinary Catheter: No Vascular Central Line Catheter: No A/P Problem List: (1) Syncope ICD Code: R55 Status: Acute (2) Symptomatic bradycardia ICD Code: R00.1 Status: Acute (3) Hypothyroidism ICD Code: E03.9 Status: Chronic (4) History of oral cancer ICD Code: Z85.819 Status: Chronic Assessment and Plan 1. Syncope, symptomatic bradycardia: Patient noted to have heart rate in the 30s by EVAC. Was given atropine 1 with improvement in heart rate to the 80s. Had another episode overnight. Continue telemetry monitoring. Appreciate cardiology recommendations. Planning for pacemaker placement this morning. 2. Hypothyroidism: TSH is elevated. Continue Synthroid. 3. DVT prophylaxis: Heparin. 4. History of oral cancer: Patient on tube feedings chronically. Problem Qualifiers (1) Syncope: Qualified Code: R55 - Syncope, unspecified syncope type Juan Luis Roblero MD Jun 04, 2016 08:16
[2016-06-04] MEDS: FOLIC ACID 1 MG TAB PO SCH (09:38)
[2016-06-04] MEDS: SODIUM CHLORIDE 0.9% FLUSH 5 ML FLUSH FLUSH SCH ×2 (09:38→20:42)
[2016-06-04] MEDS: ACETAMINOPHEN 325 MG TAB PO PRN (09:38)
[2016-06-04] MEDS: MULTIVITAMINS/MINERALS THERAPEUTIC TAB PEG SCH (09:38)
[2016-06-04] MEDS ORDERED: VANCOMYCIN INJ 1,000 MG in SODIUM CHLOR 0.9% 250 ML INJ 250 ML IV SCH (10:00)
--- NOTE | 2016-06-04 10:44 | PD.CARD.PN ---
Subjective Subjective Remarks Denies CP, dyspnea, palpitations. Episode of diaphoresis, nausea, generalized weakness, dizziness for about 10-15 min early this morning onset just as about to urinate. No syncope. Objective Medications No cardiac medications. Vital Signs / I&O Vital Signs Date Time Temp Pulse Resp B/P Pulse Ox O2 Delivery O2 Flow Rate FiO2 06/04/16 09:12 97.6 74 16 158/80 99 06/04/16 07:00 57 06/04/16 06:00 65 06/04/16 05:00 52 06/04/16 04:00 84 18 141/75 98 06/04/16 04:00 79 06/04/16 03:00 53 06/04/16 02:00 63 06/04/16 01:00 58 06/04/16 00:00 64 06/04/16 00:00 98.0 70 18 146/80 100 06/03/16 23:00 68 06/03/16 20:00 97.5 63 18 166/86 100 06/03/16 20:00 73 06/03/16 19:00 70 06/03/16 18:00 72 06/03/16 17:00 74 06/03/16 16:00 68 06/03/16 15:30 97.6 83 18 158/81 97 06/03/16 15:00 66 06/03/16 14:00 72 06/03/16 13:00 72 06/03/16 12:00 70 06/03/16 12:00 98.0 68 18 158/84 96 06/03/16 11:00 72 I/O 06/03/16 06/03/16 06/03/16 06/04/16 06/04/16 06/04/16 07:00 15:00 23:00 07:00 15:00 23:00 Intake Total 980 ml 1060 ml 488 ml Output Total 900 ml Balance 980 ml 160 ml 488 ml Intake Oral 240 ml 100 ml IV Total 488 ml Tube Feeding 620 ml 960 ml Other 120 ml Output Urine Total 900 ml # Voids 2 3 # Bowel Movements 0 2 Physical Exam GENERAL: Well developed, well nourished. No acute distress. HEENT: Jugular venous pressure is normal. CHEST: Lungs clear to auscultation bilaterally. Unlabored respiratory effort. CARDIAC: Regular rate and rhythm without S3, S4, or murmur. ABDOMEN: Soft, nontender, no hepatosplenomegaly. Bowel sounds present. EXTREMITIES: No clubbing, cyanosis, or edema. Assessment and Plan Problem List: (1) Symptomatic bradycardia Assessment and Plan: Episode of marked bradycardia HR 30 last night associated with symptoms suggestive of vasovagal mediated event precipitated it appears by urination. Discussed at great length with family permanent pacemaker, benefits , risks, procedure. Hopefully with pacemaker therapy his episodes of syncope/ near syncope with urination will resolve though I have stressed to them there is a possibility of continued episodes despite pacemaker therapy if he has persistent vasodilator mediated hypotension. Echo unremarkable. Number of questions answered today. REC permanent pacemaker insertion this morning, probable discharge tomorrow if stable, f/u with me later this week Code Status full code Discussed Condition With patient and family River Davidson MD Jun 04, 2016 10:44
[2016-06-04] MEDS ORDERED: KETAMINE HCL 500 MG/5 ML VIAL ONE (11:07)
[2016-06-04] MEDS ORDERED: MIDAZOLAM HCL 2 MG/2 ML VIAL ONE ×2 (12:18→12:39)
[2016-06-04] MEDS ORDERED: traMADol HCL 50 MG TAB PO PRN (12:45)
[2016-06-04] MEDS ORDERED: ZOLPIDEM TARTRATE 5 MG TAB PO PRN (12:45)
[2016-06-04] MEDS ORDERED: DO NOT ADM ANY ANTICOAGULANT DRUGS XX PRN (13:45)
--- NOTE | 2016-06-04 14:11 | RADRPT ---
EXAM DATE/TIME: 06/04/2016 12:58 [facility] COMPARISON: CHEST SINGLE AP, June 01, 2016, 8:29. INDICATIONS : Pneumothorax MEDICAL HISTORY : Hypertension. SURGICAL HISTORY : Pacemaker. ENCOUNTER: Initial ACUITY: 1 day PAIN SCORE: 0/10 LOCATION: Chest FINDINGS: Pacer is in good position. Heart and pulmonary vascularity are normal. Portions of the bony skeleto n visualized reveals only degenerative changes. CONCLUSION: 1. Negative chest for pneumothorax. 2. Pacer is in good position. Juan Luis Stewart MD FACR on June 04, 2016 at 13:58 Board Certified Radiologist. This report was verified electronically.
[2016-06-04] MEDS: MUPIROCIN 2% OINT 1 APPLIC/GM SYR EACH NARE SCH (20:25)
[2016-06-04] MEDS: CHLORHEXIDINE GLUCONATE 2 % 1 PACK (2 CLOTHS) TOPICAL SCH (20:26)
[2016-06-04] MEDS: POVIDONE IODINE 5% (ANTISEPSIS KIT) 4 APPLICATIONS TOPICAL SCH (20:26)
[2016-06-05] VITALS (12 sets, daily range): BP systolic 149–176; BP diastolic 79–89; PULSE 73–102; RESP 18–23; TEMP 98.3–99.1; O2SAT 99
[2016-06-05] MEDS ORDERED: VANCOMYCIN INJ 1,000 MG in SODIUM CHLOR 0.9% 250 ML INJ 250 ML IV ONE (00:45)
[2016-06-05] MEDS: SODIUM CHLOR 0.9% 1000 ML INJ 1,000 ML IV SCH (03:22)
[2016-06-05] MEDS: HEPARIN SODIUM - SQ 10,000 UNITS/ML VIAL SQ SCH (03:22)
[2016-06-05] MEDS: LACTATED RINGER'S 1000 ML IV SCH (03:33)
[2016-06-05] MEDS: LEVOTHYROXINE SODIUM 75 MCG TAB PO SCH (05:23)
--- NOTE | 2016-06-05 07:53 | HHI.DCPOC ---
Discharge Care Plan Diagnosis: (1) Syncope (2) Symptomatic bradycardia (3) Hypothyroidism (4) History of oral cancer Goals to Promote Your Health * To prevent worsening of your condition and complications * To maintain your health at the optimal level Directions to Meet Your Goals Take your medications as prescribed Follow your dietary instruction Follow activity as directed Keep your appointments as scheduled Take your immunizations and boosters as scheduled If your symptoms worsen call your PCP, if no PCP go to Urgent Care Center or Emergency Room Smoking is Dangerous to Your Health. Avoid second hand smoke Call the 24-hour hour crisis hotline for domestic abuse at Juan Luis Roblero MD Jun 05, 2016 07:53
[2016-06-05] MEDS: FOLIC ACID 1 MG TAB PO SCH (09:07)
[2016-06-05] MEDS: MULTIVITAMINS/MINERALS THERAPEUTIC TAB PEG SCH (09:07)
[2016-06-05] MEDS: ACETAMINOPHEN 325 MG TAB PO PRN (09:08)
[2016-06-05] MEDS: SODIUM CHLORIDE 0.9% FLUSH 5 ML FLUSH FLUSH SCH (09:08)
[2016-06-05] MEDS ORDERED: ENALAPRILAT 1.25 MG/ML VIAL IV PUSH ONE (09:30)
--- NOTE | 2016-06-05 09:33 | HHI.DS ---
Discharge Summary Admission Date Jun 01, 2016 at 09:31 Discharge Date: Jun 05, 2016 Admitting Diagnosis symptomatic bradycardia, syncope (1) Syncope ICD Code: R55 (2) Symptomatic bradycardia ICD Code: R00.1 (3) Hypothyroidism ICD Code: E03.9 (4) History of oral cancer ICD Code: Z85.819 Procedures 06/04/16 pacemaker placement Brief History - From Admission The patient is a 70-year-old male who presented to the emergency department following a syncopal episode. Apparently the patient was lying in bed and his found him to be unresponsive. As he awakened he was acting "strange". He does not recall any of the events surrounding this episode. He has had previous syncopal episodes over the past few years, generally associated with urination. He does not recall getting up to urinate this time. He denies chest pain or dyspnea. Has not had any lightheadedness or dizziness. He has a significant history for oral cancer requiring multiple surgeries. He is reportedly cancer free at this time. He denies any cardiac history. CBC/BMP: 06/02/16 0546 06/02/16 0546 Imaging Last Impressions Chest X-Ray 06/04/16 0000 Signed Impressions: Service Date/Time: Saturday, June 04, 2016 12:58 - CONCLUSION: 1. Negative chest for pneumothorax. 2. Pacer is in good position. Juan Luis Stewart MD FACR PE at Discharge General: No acute distress. Heart: Regular rate and rhythm. No murmur. Lungs: Clear to auscultation bilaterally. No wheezes, rales, or rhonchi. Breathing is nonlabored. Abdomen: Soft, nontender, nondistended. PEG tube in place. Extremities: No lower extremity edema. Psych: Alert and oriented. Pt update on day of discharge Patient reports some soreness around the pacemaker insertion site. No chest pain or dyspnea. Denies lightheadedness or syncopal episodes overnight. Hospital Course The patient was admitted for management of septum and bradycardia. Cardiology was consulted and recommended pacemaker placement. Patient was monitored on telemetry. He had another episode of significant bradycardia, which again responded to atropine. Pacemaker was placed. The patient remained stable the following night and was felt to be stable for discharge home. He was advised to follow-up with cardiology in 2 days. Pt Condition on Discharge: Stable Discharge Disposition: Discharge Home Discharge Time: > 30 minutes Discharge Instructions DIET: Follow Instructions for: Heart Healthy Diet Activities you can perform: Non Weight Bearing Other Activity Instructions: Non-weightbearing LUE Follow up Referrals: Cardiology - 2-3 Days with River Davidson MD Ear Nose Throat - 1 Week with Wagner Ramos MD Continued Medications: Acetaminophen (Mapap) 500 Mg Tab 500 MG PO TID PRN PAIN Ref 0 TAB Azelastine Nasal Homer (Azelastine Nasal Homer) 0.15% Homer 1 SPRAY EACH NARE DIRECTED To each nostril. PRN ALLERGIES #1 Ref 0 BOTTLE Clonazepam (Klonopin) 1 Mg Tab 1 MG PO TID PRN ANXIETY AND/OR AGITATION #90 Ref 0 TAB Dicyclomine (Bentyl) 10 Mg Cap 10 MG PO DAILY PRN SPASM Ref 0 CAP Folic Acid (Folic Acid) 400 Mcg Tab 400 MCG PO DAILY Nutritional Supplement Ref 0 TAB Levothyroxine (Levothyroxine) 75 Mcg Tab 75 MCG PO DAILY Thyroid #30 Ref 0 TAB Multiple Vitamins W/ Minerals (Centrum) 1 Tab 1 TAB PO DAILY Nutritional Supplement Ref 0 TAB Naproxen Sodium (Aleve) 220 Mg Tab 220 MG PO DAILY PRN Pain Management Ref 0 TAB Propylene Glycol Opth Drops (Systane Balance Worship Opth Drops) 0.6% Soln 1 DROP EACH EYE TID PRN DRY EYE Ref 0 BOTTLE Sodium Fluoride (Dental) (Sf 5000 Plus) 1.1 % Cre 1 APPLIC MT DAILY Juan Luis Roblero MD Jun 05, 2016 09:33
--- NOTE | 2016-06-05 10:32 | PD.CARD.PN ---
Subjective Subjective Remarks Didn't sleep well. Tired. No dyspnea, dizziness, palpitations. Minimal incisional pain. Objective Medications Item Value Date Time Heparin Sodium 5,000 units 06/01/16 1100 (Porcine) Q8H/SQ 06/05/16 0322 (Heparin Inj) Vital Signs / I&O Vital Signs Date Time Temp Pulse Resp B/P Pulse Ox O2 Delivery O2 Flow Rate FiO2 06/05/16 10:21 18 06/05/16 09:26 176/89 06/05/16 07:00 85 06/05/16 07:00 98.3 84 18 171/88 99 06/05/16 06:00 73 06/05/16 05:00 75 06/05/16 04:00 87 06/05/16 03:00 90 06/05/16 03:00 99.1 90 23 162/80 99 06/05/16 02:00 88 06/05/16 01:00 102 06/04/16 23:00 92 06/04/16 23:00 97.4 92 23 186/88 99 06/04/16 21:00 93 06/04/16 20:00 83 06/04/16 19:00 97.5 93 16 165/80 100 06/04/16 19:00 93 06/04/16 18:00 103 06/04/16 17:00 96 06/04/16 16:00 87 06/04/16 15:30 97.7 63 16 118/59 99 06/04/16 15:00 65 06/04/16 14:10 60 06/04/16 14:10 60 16 107/56 100 06/04/16 13:45 97.8 60 12 98/56 99 Nasal Cannula 2 06/04/16 13:30 60 12 101/55 99 06/04/16 13:15 61 12 88/53 100 Nasal Cannula 2 06/04/16 13:02 97.8 60 12 104/70 99 Nasal Cannula 2 I/O 06/04/16 06/04/16 06/04/16 06/05/16 06/05/16 06/05/16 07:00 15:00 23:00 07:00 15:00 23:00 Intake Total 488 ml 500 ml 972 ml 1624 ml Output Total 1425 ml Balance 488 ml 500 ml 972 ml 199 ml IV Total 488 ml 222 ml 1144 ml Tube Feeding 480 ml 480 ml Tube Irrigant 30 ml Other 500 ml 240 ml Output Urine Total 1425 ml # Voids 3 4 # Bowel Movements 1 Physical Exam GENERAL: Well developed, well nourished. No acute distress. HEENT: Jugular venous pressure is normal. CHEST: Lungs clear to auscultation bilaterally. Unlabored respiratory effort. CARDIAC: Regular rate and rhythm without S3, S4, or murmur. ABDOMEN: Soft, nontender, no hepatosplenomegaly. Bowel sounds present. EXTREMITIES: No clubbing, cyanosis, or edema. Assessment and Plan Problem List: (1) Symptomatic bradycardia Assessment and Plan: Stable status post DDD pacer implant yesterday. Pacer site clean, dry, intact, no hematoma. Pacer function normal. Rec OK to discharge home today, f/u with me Saturday. (2) Hypertension Assessment and Plan: No known history of HTN. Will check BP's on office f/u, initiate antihypertensive therapy as needed. (3) Paroxysmal supraventricular tachycardia Assessment and Plan: Brief 1 min episode of relatively slow SVT noted by pacer check. Patient asymptomatic. Rec cont to monitor. Code Status full code Discussed Condition With patient and family Problem Qualifiers (1) Hypertension: Qualified Code: I10 - Essential hypertension River Davidson MD Jun 05, 2016 10:32
[2016-06-05] MEDS ORDERED: WALKER WHEELS/F1 MIS (13:32)
--- NOTE | 2016-06-06 23:21 | MP ---
cc: ANDREY NUNEZ MD DATE OF SURGERY 06/04/16 PROCEDURE Dual-chamber permanent pacemaker implantation via the left subclavian vein. INDICATIONS Symptomatic sick sinus syndrome, symptomatic bradycardia. OPERATIVE NOTE The patient was brought to the operating suite in a fasting state after having signed informed consent. The left upper chest was prepped and draped as per policy and anesthetized with 1% lidocaine. Central venous access was obtained twice via the left subclavian vein using modified Seldinger technique after administration of 15 mL of contrast through a left arm peripheral IV. A transverse incision was made inferior to the left clavicle and, using blunt dissection, a subcutaneous pocket was formed down to the pectoralis fascia. Over the more lateral guidewire, a 7-Tongan sheath was placed and through this sheath a ventricular active fixation lead was introduced and its tip positioned in the right ventricular apex where good current of injury, stimulation threshold (0.6 volts) and sensitivity (15 mV) were verified. This lead was secured into place using 2-0 silk ties down to the pectoralis fascia. Over the remaining guidewire, another 7-Tongan sheath was placed and through this sheath an atrial active fixation lead was introduced and its tip positioned in the right atrial appendage where good current of injury and stimulation threshold (1.3 volts) was demonstrated. The sensitivity is variable in this region (0.8-2.8 mV). Impedance is stable. The lead was secured into place using 2-0 silk ties down to the pectoralis fascia. The leads were then connected to the pacemaker generator which is a Biotronik Eluna device. The leads and the generator were placed back into the subcutaneous pocket which was closed using 3-0 Vicryl interrupted stitches in two layers to close the subcutaneous tissue and then 4-0 Monocryl running stitch to close the subcuticular tissue. Overlapping Steri-Strips and a dressing were applied. There were no apparent immediate complications. A portable chest x-ray is pending at the time of this dictation. CONCLUSION Successful dual-chamber permanent pacemaker implantation via the left subclavian vein using an MRI compatible Biotronik Eluna pacemaker system. MD NITHIN Ann/ /12:43 PM /11:18 PM KEYON
== END 2016-06-05 13:35 | disposition home or self-care (01) | DRG 243 ==
LOC: NEPC 07:51 → NEDA 09:31 → HCPC 16:00
PROVIDERS: ADMIT Family Medicine; ATTEND Family Medicine
PROC: 02HK3JZ Insertion of Pacemaker Lead into Right Ventricle, Percutaneous Approach (ICD-10-PCS; 2016-06-04)
PROC: 02H63JZ Insertion of Pacemaker Lead into Right Atrium, Percutaneous Approach (ICD-10-PCS; 2016-06-04)
PROC: 0JH606Z Insertion of Pacemaker, Dual Chamber into Chest Subcutaneous Tissue and Fascia, Open Approach (ICD-10-PCS; principal; 2016-06-04 11:00)
DX: I49.5 Sick sinus syndrome (principal); M86.9 Osteomyelitis, unspecified; I10 Essential (primary) hypertension; I47.1 Supraventricular tachycardia; R55 Syncope and collapse; E03.9 Hypothyroidism, unspecified; Z85.819 Personal history of malignant neoplasm of unspecified site of lip, oral cavity, and pharynx; Z92.3 Personal history of irradiation
CPT/HCPCS: 33208; 71010; 76937; 80048; 82550; 82552; 83735; 84439; 84443; 84484; 85025; 85610; 85730; 93005; 93306; C1785; C1898; G8987-GP; G8988-GP; J0461; J1644; J2250; J3370; J7030; J7050

== ENCOUNTER 2016-06-12 03:21 | Observation (INO) | payer MEDICARE, OTHER ==
[~2016-06-12] VITALS: Ht 172.7 cm; Wt 70.7 kg
[2016-06-12] VITALS (17 sets, daily range): BP systolic 97–168; BP diastolic 55–93; PULSE 60–88; RESP 14–18; TEMP 97.2–98.3; O2SAT 96–100
[~2016-06-12 03:21] MED LIST: AZEL0.055 EACH NARE; CLON1 GT; DICY10 GT; FOLI400T GT; LEVO75TA3 GT; MAPA500T GT; MULT-6 GT; NAPR220T95 GT; SF 51.1C GT; SYSTSOL15 EACH EYE; WALKER WHEELS/F1 MIS
[2016-06-12 04:02] LABS: ALT (GPT) 56 U/L (12-78); ANION GAP 9 MEQ/L (5-15); AST (GOT) 24 U/L (15-37); BICARBONATE 25.3 MEQ/L (21.0-32.0); BLOOD UREA NITROGEN 20 MG/DL (7-18); CHLORIDE 104 MEQ/L (98-107); GLOMERULAR FILTRATION RATE 70 ML/MIN (>89); MAGNESIUM 2.2 MG/DL (1.5-2.5); POTASSIUM 4.3 MEQ/L (3.5-5.1); SODIUM (NA) 138 MEQ/L (136-145)
--- NOTE | 2016-06-12 04:06 | RADRPT ---
EXAM DATE/TIME: 06/12/2016 03:47 [place] COMPARISON: CHEST SINGLE AP, June 04, 2016, 12:58. INDICATIONS : Syncopal episode. MEDICAL HISTORY : Hypertension. SURGICAL HISTORY : Pacemaker. ENCOUNTER: Initial ACUITY: 1 day PAIN SCORE: Non-responsive. LOCATION: Bilateral chest FINDINGS: A single view of the chest demonstrates the lungs to be symmetrically aerated without evidence of mas s, infiltrate or effusion. The cardiomediastinal contours are unremarkable. There is a pacemaker ov erlying the left chest. Osseous structures are intact. No significant change CONCLUSION: No acute disease. No significant change has occurred. Arden Yi MD on June 12, 2016 at 4:05 Board Certified Radiologist. This report was verified electronically.
[2016-06-12 04:12] LABS: ALKALINE PHOSPHATASE 86 U/L (45-117); CREATINE KINASE 128 U/L (39-308); TOTAL BILIRUBIN ADULT 0.3 MG/DL (0.2-1.0)
[2016-06-12 04:16] LABS: AUTOMATED NEUTROPHIL # 3.5 TH/MM3 (1.8-7.7); BASOPHIL # 0.1 TH/MM3 (0-0.2); BASOPHIL % 1.2 % (0.0-2.0); EOSINOPHIL # 0.5 TH/MM3 (0-0.4); EOSINOPHIL % 7.6 % (0.0-4.0); HEMATOCRIT 35.4 % (39.0-51.0); HEMO FLAGS DIFF FINAL; LYMPHOCYTE # 1.6 TH/MM3 (1.0-4.8); MEAN CORPUSCULAR HEMOGLOBIN 29.9 PG (27.0-34.0); MEAN CORPUSCULAR HGB CONC 34.7 % (32.0-36.0); MONO % 10.3 % (0.0-8.0); NEUT % 54.9 % (16.0-70.0); PLATELET COUNT 248 TH/MM3 (150-450); RED BLOOD COUNT 4.11 MIL/MM3 (4.50-5.90); RED CELL DISTRIBUTION WIDTH 13.2 % (11.6-17.2); WHITE BLOOD COUNT 6.3 TH/MM3 (4.0-11.0)
[2016-06-12 04:26] LABS: CKMB 1.5 NG/ML (0.5-3.6)
--- NOTE | 2016-06-12 04:56 | PD ---
HPI Chief Complaint: Syncope/Near-Syncope Time Seen by Provider: 03:34 Travel History International Travel<30 days: No Contact w/Intl Traveler<30days: No Traveled to known affect area: No History of Present Illness HPI The patient is a 70 year old male who presents to the [facility] emergency department with a history of syncopal event that occurred prior to arrival. The patient got up to go to the bathroom and reportedly had a loss of consciousness. This was witnessed by his . The patient was brought in by ambulance services. The patient's has not arrived at the bedside yet. In route to this facility, ambulance services reported that the patient had an episode of V. tach versus wide-complex junctional rhythm and became less responsive with a blood pressure systolic in the 60s. IV access was obtained by them and he was started on a normal saline 250 bolus 1. The patient's recent history is significant for being diagnosed with symptomatic sick sinus syndrome with symptomatic bradycardia and syncope, admitted to the hospital on June 01 and a pacemaker was placed by Dr. Davidson. At this time, the patient reports feeling improved. The patient reports that he felt weak all over initially., However otherwise he does not recall the events that occurred prior to arrival. The only complaint that the patient reports at this time is having some right TMJ pain. 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 He reports that this occurred in September of 2015. The patient denies any recent fevers cough, congestion, neck pain, chest pain, shortness of breath, abdominal pain, vomiting, diarrhea, urinary symptoms, or other neurologic symptoms. 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 Cancer: Yes Cardiac Catheterization: Yes Cardiovascular Problems: No Chemotherapy: Yes Endocrine: Yes Genitourinary: No Immune Disorder: No Musculoskeletal: No Neurologic: No Reproductive: No Respiratory: No Radiation Therapy: Yes Thyroid Disease: Yes Influenza Vaccination: Yes Past Surgical History Narrative Surgical The patient's past surgical history is significant for multiple jaw surgeries including reconstructive surgery with flap taken from his left arm, left knee meniscus repair. The patient also recently underwent a pacemaker placement. Abdominal Surgery: Yes (PEG) Cardiac Surgery: No Ear Surgery: No Endocrine Surgery: No Eye Surgery: No Genitourinary Surgery: No Gynecologic Surgery: No Oral Surgery: Yes Pacemaker: Yes Thoracic Surgery: No Social History Alcohol Use: No Tobacco Use: No Substance Use: No Allergies-Medications (Allergen,Severity, Reaction): Coded Allergies: Penicillin (Verified Allergy, Severe, Anaphylaxis, 06/12/16) Aztreonam (Verified Allergy, Intermediate, Rash, 06/12/16) Bactrim (Verified Allergy, Intermediate, Rash, 06/12/16) Ciprofloxacin (Verified Allergy, Intermediate, Rash, 06/12/16) Clindamycin (Verified Allergy, Intermediate, Rash, 06/12/16) Levofloxacin (Verified Allergy, Intermediate, Rash, 06/12/16) Salicylates (Verified Allergy, Intermediate, RASH , 06/12/16) Sulfa (Verified Allergy, Intermediate, RASH, 06/12/16) Reported Meds & Prescriptions Reported Meds & Active Scripts Active Walker with Front Wheels (Device) 1 Mis Mis 1 Ea .ROUTE DIRECTED Reported Aleve (Naproxen Sodium) 220 Mg Tab 220 Mg PO DAILY PRN Sf 5000 Plus (Sodium Fluoride (Dental)) 1.1 % Cre 1 Applic MT DAILY Systane Balance Mandaeism Opth Drops (Propylene Glycol Opth Drops) 0.6% Soln 1 Drop EACH EYE TID PRN Levothyroxine (Levothyroxine Sodium) 75 Mcg Tab 75 Mcg PO DAILY Folic Acid 400 Mcg Tab 400 Mcg PO DAILY Bentyl (Dicyclomine HCl) 10 Mg Cap 10 Mg PO DAILY PRN Klonopin (Clonazepam) 1 Mg Tab 1 Mg PO TID PRN Centrum (Multiple Vitamins W/ Minerals) 1 Tab 1 Tab PO DAILY Azelastine Nasal [place] (Azelastine HCl) 0.15% [place] 1 [place] EACH NARE DIRECTED PRN To each nostril. Mapap (Acetaminophen) 500 Mg Tab 500 Mg PO TID PRN Review of Systems Except as stated in HPI: all other systems reviewed are Neg General / Constitutional: No: Fever Eyes: No: Visual changes HENT: Positive: Other (reported right jaw pain), No: Headaches Cardiovascular: Positive: Syncope, No: Chest Pain or Discomfort Respiratory: No: Shortness of Breath Gastrointestinal: No: Abdominal Pain Genitourinary: No: Dysuria Musculoskeletal: No: Pain Skin: No Rash Neurologic: No: Weakness Psychiatric: No: Depression Endocrine: No: Polydipsia Hematologic/Lymphatic: No: Easy Bruising Physical Exam Narrative General: The patient is a well-developed well-nourished male in no acute distress. Head and Neck exam: Head is normocephalic atraumatic. Eyes: Pupils are equal round and reactive to light. Nose: Midline septum with pink mucous membranes Mouth: On examination of the patient's mouth the patient does have evidence of prior surgeries with deformity of his job related to resection from oral cancer and resection related to osteomyelitis as a complication of surgery. Moist mucus membranes. Posterior oropharynx is not erythematous. No tonsillar hypertrophy. Uvula midline. Airway patent. Neck: No palpable lymphadenopathy. No nuchal rigidity. No thyromegaly. Cardiovascular: Regular rate and rhythm heart rate in the 60s without murmurs, gallops, or rubs. No pulse deficit to the extremities and simultaneous auscultation and palpation of his radial artery. Lungs: Clear to auscultation bilaterally. No wheezes, rhonchi, or rales. Abdomen: Soft, without tenderness to palpation in all 4 quadrants of the abdomen. No guarding, rebound, or rigidity. Normal bowel sounds are audible. The patient has a feeding tube in place in good repair in the left upper abdomen. Extremities: No clubbing, cyanosis, or edema. 2+ pulses in all 4 extremities. No calf tenderness on palpation. Back: No spinous process tenderness to palpation. No costovertebral angle tenderness to palpation. Neurologic Exam: Grossly nonfocal. The patient has generalized weakness with 4 over 5 strength in all 4 extremities. Intact sensation over all dermatomes Skin Exam: No rash noted. Intact skin that is warm and dry. Data Data Last Documented VS Vital Signs Date Time Temp Pulse Resp B/P Pulse Ox O2 Delivery O2 Flow Rate FiO2 06/12/16 03:21 16 100 Nasal Cannula 2 06/12/16 03:21 98.3 60 97/55 Orders Electrocardiogram (06/12/16 03:36) Complete Blood Count With Diff (06/12/16 03:36) Comprehensive Metabolic Panel (06/12/16 03:36) Creatine Kinase (Cpk) (06/12/16 03:36) Ckmb (Isoenzyme) Profile (06/12/16 03:36) Troponin I (06/12/16 03:36) B-Type Natriuretic Peptide (06/12/16 03:36) Magnesium (Mg) (06/12/16 03:36) Thyroid Stimulating Hormone (06/12/16 03:36) Chest, Single Ap (06/12/16 03:36) Iv Access Insert/Monitor (06/12/16 03:36) Ecg Monitoring (06/12/16 03:36) Oximetry (06/12/16 03:36) CKMB (06/12/16 03:40) CKMB% (06/12/16 03:40) Admit Order (Ed Use Only) (06/12/16 05:02) Labs Laboratory Tests Test 06/12/16 03:40 White Blood Count 6.3 TH/MM3 Red Blood Count 4.11 MIL/MM3 Hemoglobin 12.3 GM/DL Hematocrit 35.4 % Mean Corpuscular Volume 86.0 FL Mean Corpuscular Hemoglobin 29.9 PG Mean Corpuscular Hemoglobin 34.7 % Concent Red Cell Distribution Width 13.2 % Platelet Count 248 TH/MM3 Mean Platelet Volume 7.9 FL Neutrophils (%) (Auto) 54.9 % Lymphocytes (%) (Auto) 26.0 % Monocytes (%) (Auto) 10.3 % Eosinophils (%) (Auto) 7.6 % Basophils (%) (Auto) 1.2 % Neutrophils # (Auto) 3.5 TH/MM3 Lymphocytes # (Auto) 1.6 TH/MM3 Monocytes # (Auto) 0.7 TH/MM3 Eosinophils # (Auto) 0.5 TH/MM3 Basophils # (Auto) 0.1 TH/MM3 CBC Comment DIFF FINAL Differential Comment Sodium Level 138 MEQ/L Potassium Level 4.3 MEQ/L Chloride Level 104 MEQ/L Carbon Dioxide Level 25.3 MEQ/L Anion Gap 9 MEQ/L Blood Urea Nitrogen 20 MG/DL Creatinine 1.05 MG/DL Estimat Glomerular Filtration 70 ML/MIN Rate Random Glucose 109 MG/DL Calcium Level 8.5 MG/DL Magnesium Level 2.2 MG/DL Total Bilirubin 0.3 MG/DL Aspartate Amino Transf 24 U/L (AST/SGOT) Alanine Aminotransferase 56 U/L (ALT/SGPT) Alkaline Phosphatase 86 U/L Total Creatine Kinase 128 U/L Creatine Kinase MB 1.5 NG/ML Troponin I LESS THAN 0.02 NG/ML B-Type Natriuretic Peptide 11 PG/ML Total Protein 6.9 GM/DL Albumin 3.0 GM/DL Free Thyroxine 0.89 NG/DL Free Triiodothyronine (T3) 2.32 PG/ML pg/dL Thyroid Stimulating Hormone 8.390 uIU/ML 3rd Gen [facility] Medical Decision Making Medical Screen Exam Complete: Yes Emergency Medical Condition: Yes Medical Record Reviewed: Yes Interpretation(s) Last Impressions Chest X-Ray 06/12/16 0336 Signed Impressions: Service Date/Time: Sunday, June 12, 2016 03:47 - CONCLUSION: No acute disease. No significant change has occurred. Arden Yi MD Differential Diagnosis Pacemaker dislodgment, versus pacemaker malfunction, versus electrolyte abnormality, versus acute coronary syndrome, versus cardiac arrhythmia Narrative Course During the course of the patients emergency department visit, the patients history, examination, and differential diagnosis were reviewed with the patient. The patient had IV access obtained and blood work sent for analysis. Blood work was sent for analysis. The patient was placed on a vehicle monitor technician with oximetry and blood pressure monitoring. Pacer pads were applied to the patient's chest wall. An EKG was done on arrival. The patient's EKG shows a left chronic atrial pacemaker. The patient's rhythm is paced at a rate of 60. No acute ST segment elevation is noted, Q's are noted in lead 3, no acute ST segment depression. The patient was provided normal saline IV fluid bolus of 250 mL en route to this facility. The patients laboratory studies were reviewed and remarkable for a CBC that shows a white count of 6.3, hemoglobin 12.3, platelets 248 with 10.3 monocytes, CMP is remarkable for a BUN of 20, GFR 70, glucose 109, cardiac enzymes are unremarkable, BNP 11, TSH 8.39. Radiology studies were reviewed and remarkable for a chest x-ray that showed no acute abnormality. The patient's pacemaker loan representative was called to interrogate his pacemaker. The patient will be admitted to the hospital for recurrent syncope. The patients results were discussed with the patient, including the plan of care. I explained that further testing and/ or monitoring is indicated based on the patients history, examination, and/ or laboratory findings. Therefore, I recommended admission for additional evaluation. The patient expressed understanding and was agreeable with this plan. The patient was admitted to the hospital in guarded condition and sent to a bed under the care of the [facility] and the [facility]. Physician Communication Physician Communication The patient's case was discussed with Dr. Roblero did agree to admit the patient for further evaluation and treatment at this time. Diagnosis Primary Impression: Syncope Qualified Code: R55 - Syncope, unspecified syncope type Admitting Information Admitting Physician Requests: Admit Ara Dwyer MD Jun 12, 2016 04:56
[2016-06-12] MEDS ORDERED: SODIUM CHLORIDE 0.9% FLUSH 5 ML FLUSH FLUSH PRN (05:15)
[2016-06-12] MEDS ORDERED: ARTIFICIAL TEARS OPTH SOLN 15 ML BTL EACH EYE PRN (05:15)
[2016-06-12] MEDS ORDERED: NALOXONE HCL 0.4 MG/ML AMP IV PRN (05:15)
[2016-06-12] MEDS ORDERED: clonazePAM 1 MG TAB PO PRN (05:15)
[2016-06-12 06:33] LABS: FREE T3 2.32 PG/ML (2.18-3.98); FREE T4 0.89 NG/DL (0.76-1.46)
[2016-06-12] MEDS: LEVOTHYROXINE SODIUM 75 MCG TAB PO SCH (06:57)
[2016-06-12] MEDS: ACETAMINOPHEN 325 MG TAB PO PRN ×2 (07:05→23:35)
[2016-06-12] MEDS: MULTIVITAMINS/MINERALS THERAPEUTIC TAB PO SCH (09:00)
--- NOTE | 2016-06-12 09:18 | HHI.HP ---
[facility]Staff Admission Diagnosis syncope Diagnoses: Chief Complaint: passed out. Travel History International Travel<30 Days: No Contact w/Intl Traveler <30 Da: No Traveled to Known Affected Are: No History of Present Illness Mr. Carreon is a pleasant 70 year old male with a history of oral cancer, sick sinus syndrome with a recent pacemaker placement who presents to the ED due to a syncopal episode. Patient got up go to the bathroom and had a syncopal episode. Patient's called EMS and en route EMS noted possible V tach vs. junctional rhythm. Patient was found to have low systolic BP and received a 250mL NS bolus. On arrival BP 97/55, HR 60, R 14, O2 sat 98-100% on 2L of O2 via nasal cannula. EKG shows HR 60, atrially paced rhythm. Patient denies any chest pain, SOB, fever, chills. Denies any changes in bowel or bladder habits. Dr. Davidson (cardiology) who inserted pacemaker about a week prior to this admission already evaluated patient in the ED. Review of Systems ROS Limitations: Other (Negative except as noted in the HPI. ) Past Family Social History Past Medical History Oral cancer with recurrence, osteomyelitis of the left mandibular region, sick sinus syndrome. Past Surgical History Multiple surgeries due to oral cancer. Reported Medications Aleve (Naproxen Sodium) 220 Mg Tab 220 Mg PO DAILY PRN Sf 5000 Plus (Sodium Fluoride (Dental)) 1.1 % Cre 1 Applic MT DAILY Systane Balance Mormonism Opth Drops (Propylene Glycol Opth Drops) 0.6% Soln 1 Drop EACH EYE TID PRN Levothyroxine (Levothyroxine Sodium) 75 Mcg Tab 75 Mcg PO DAILY Folic Acid 400 Mcg Tab 400 Mcg PO DAILY Bentyl (Dicyclomine HCl) 10 Mg Cap 10 Mg PO DAILY PRN Klonopin (Clonazepam) 1 Mg Tab 1 Mg PO TID PRN Centrum (Multiple Vitamins W/ Minerals) 1 Tab 1 Tab PO DAILY Azelastine Nasal [place] (Azelastine HCl) 0.15% [place] 1 Gregory EACH NARE DIRECTED PRN To each nostril. Mapap (Acetaminophen) 500 Mg Tab 500 Mg PO TID PRN Allergies: Coded Allergies: Penicillin (Verified Allergy, Severe, Anaphylaxis, 06/12/16) Aztreonam (Verified Allergy, Intermediate, Rash, 06/12/16) Bactrim (Verified Allergy, Intermediate, Rash, 06/12/16) Ciprofloxacin (Verified Allergy, Intermediate, Rash, 06/12/16) Clindamycin (Verified Allergy, Intermediate, Rash, 06/12/16) Levofloxacin (Verified Allergy, Intermediate, Rash, 06/12/16) Salicylates (Verified Allergy, Intermediate, RASH , 06/12/16) Sulfa (Verified Allergy, Intermediate, RASH, 06/12/16) Family History No family history of Alzheimer's or Parkinson's. Social History Denies using tobacco, alcohol or illicit drugs. Physical Exam Vital Signs Vital Signs Date Time Temp Pulse Resp B/P Pulse Ox O2 Delivery O2 Flow Rate FiO2 06/12/16 07:45 69 18 120/59 99 2 06/12/16 03:21 16 100 Nasal Cannula 2 06/12/16 03:21 98.3 60 14 97/55 98 06/12/16 03:21 60 16 100 Nasal Cannula 2 Physical Exam GENERAL: This is a well-nourished, well-developed patient, in no apparent distress. SKIN: No rashes, ecchymoses or lesions. Warm and dry. HEAD: Atraumatic. Normocephalic. No temporal or scalp tenderness. EYES: Pupils equal round and reactive. No injection or drainage. ENT: Nose without bleeding, purulent drainage or septal hematoma. Airway patent. Prior mouth surgery changes on the left side of the face. NECK: Trachea midline. No lymphadenopathy. Supple, nontender, no meningeal signs. CARDIOVASCULAR: Regular rate and rhythm (atrially paced) without murmurs, gallops, or rubs. No JVD. RESPIRATORY: Clear to auscultation. Breath sounds equal bilaterally. No wheezes , rales, or rhonchi. GASTROINTESTINAL: Abdomen soft, non-tender, nondistended. No guarding. MUSCULOSKELETAL: Extremities without clubbing, cyanosis, or edema. NEUROLOGICAL: Awake and alert. Cranial nerves II through XII intact. No focal neurological deficits. Normal speech. Laboratory Laboratory Tests Test 06/12/16 03:40 White Blood Count 6.3 Red Blood Count 4.11 Hemoglobin 12.3 Hematocrit 35.4 Mean Corpuscular Volume 86.0 Mean Corpuscular Hemoglobin 29.9 Mean Corpuscular Hemoglobin 34.7 Concent Red Cell Distribution Width 13.2 Platelet Count 248 Mean Platelet Volume 7.9 Neutrophils (%) (Auto) 54.9 Lymphocytes (%) (Auto) 26.0 Monocytes (%) (Auto) 10.3 Eosinophils (%) (Auto) 7.6 Basophils (%) (Auto) 1.2 Neutrophils # (Auto) 3.5 Lymphocytes # (Auto) 1.6 Monocytes # (Auto) 0.7 Eosinophils # (Auto) 0.5 Basophils # (Auto) 0.1 CBC Comment DIFF FINAL Differential Comment Sodium Level 138 Potassium Level 4.3 Chloride Level 104 Carbon Dioxide Level 25.3 Anion Gap 9 Blood Urea Nitrogen 20 Creatinine 1.05 Estimat Glomerular Filtration 70 Rate Random Glucose 109 Calcium Level 8.5 Magnesium Level 2.2 Total Bilirubin 0.3 Aspartate Amino Transf 24 (AST/SGOT) Alanine Aminotransferase 56 (ALT/SGPT) Alkaline Phosphatase 86 Total Creatine Kinase 128 Creatine Kinase MB 1.5 Troponin I LESS THAN 0.02 B-Type Natriuretic Peptide 11 Total Protein 6.9 Albumin 3.0 Free Thyroxine 0.89 Free Triiodothyronine (T3) 2.32 pg/dL Thyroid Stimulating Hormone 8.390 3rd Gen Result Diagram: 06/12/16 0340 06/12/16 0340 Imaging Last Impressions Chest X-Ray 06/12/16 0336 Signed Impressions: Service Date/Time: Sunday, June 12, 2016 03:47 - CONCLUSION: No acute disease. No significant change has occurred. Arden Yi MD Assessment and Plan Problem List: (1) Syncope ICD Code: R55 Status: Acute (2) Sick sinus syndrome ICD Code: I49.5 Status: Acute (3) Hypothyroidism ICD Code: E03.9 Status: Chronic (4) Hypertension ICD Code: I10 Status: Acute (5) History of oral cancer ICD Code: Z85.819 Status: Chronic Assessment and Plan Mr. Carreon, 70 with a history of sick sinus syndrome s/p recent pacemaker insertion who presents to the ED with an episode of syncope. No chest pain, shortness of breath, fever, chills. - Probable vasovagal syncope - Sick sinus syndrome s/p pacemaker insertion - MRI compatible Biotronik Eluna DDD pacemaker inserted on 06/04/2016. - Possible orthostasis hypotension. - Cardiology - Dr. Davidson has evaluated patient. - Device interrogation showed SVT on 06/10/2016. No SVT on 06/11/2016 when patient was symptomatic. - Per device interrogation, device is working as intended, no changes were made in programming. - Dr. Davidson started patient on Fludrocortisone 0.1mg BID as well as metoprolol 12.5mg PO Q8hrs. - Tele monitoring. - Anxiety - Continue Clonazepam 1mg TID PRN - Hypertension - Will start patient on Amlodipine 2.5mg Qday. Increase as tolerated. Goal BP < 150/90. - Hypothyroidism - Continue Levothyroxine 75 mcg QAM. Full code. SCDs. Problem Qualifiers (1) Syncope: Qualified Code: R55 - Syncope, unspecified syncope type Alexandre Corrales DO Jun 12, 2016 09:18
[2016-06-12] MEDS: FLUDROCORTISONE ACETATE 0.1 MG TAB PO SCH ×2 (10:00→20:44)
[2016-06-12] MEDS: METOPROLOL TARTRATE 25 MG TAB PO SCH ×2 (10:24→18:00)
[2016-06-12] MEDS: FOLIC ACID 1 MG TAB PO SCH (10:24)
[2016-06-12] MEDS: SODIUM CHLORIDE 0.9% FLUSH 5 ML FLUSH FLUSH SCH ×2 (10:24→20:44)
--- NOTE | 2016-06-12 14:55 | MB ---
cc: ANDREY NUNEZ MD DATE OF CONSULTATION 06/12/16 REASON FOR CONSULTATION Recurrent syncope, status post recent permanent pacemaker implantation. HISTORY OF PRESENT ILLNESS The patient is a 70-year-old male with a history of recurrent oral cancers, hypothyroidism, sick sinus syndrome status post permanent pacemaker implantation about a week ago who returned to the hospital after another syncopal episode. The patient has a very long history of micturition syncope. On his last admission here, he was noted to have severe bradycardia after a syncopal episode, so he was recommended a permanent pacemaker implant. Very early this morning, he apparently got out of bed at the hotel room presumably to go to the bathroom. The patient cannot recall any of the surrounding events until regaining consciousness on the bed. When he regained consciousness, there was no definite disorientation, although he felt himself urinating and had the urge to have a bowel movement. At times in the last few days he has had intermittent racing palpitations without associated dizziness, syncope or near-syncope. He also denies chest pain, pedal edema, paroxysmal nocturnal dyspnea. Prior to losing consciousness, he cannot recall feeling nauseated or any pain. PAST MEDICAL HISTORY 1. Hypothyroidism. 2. Recurrent oral cancers status post four operations for resection. He also has undergone radiation therapy and chemotherapy. His last operation was also complicated by the development of osteomyelitis in his mandibular region. 3. Micturition syncope for at least the last 20 years. 4. Status post permanent pacemaker implantation 06/06/16 for sick sinus syndrome, symptomatic bradycardia. MEDICATIONS His cardiac medications at home none. ALLERGIES AZTREONAM BACTRIM CIPRO CLINDAMYCIN LEVAQUIN PENICILLIN SALICYLATES SULFA FAMILY HISTORY Noncontributory. SOCIAL HISTORY The patient denies any history of alcohol or tobacco abuse. REVIEW OF SYSTEMS As in the history of present illness otherwise negative or noncontributory. He also denies visual changes, unilateral weakness or numbness, abdominal pain, melena, dyspepsia, bright red blood per rectum. PHYSICAL EXAMINATION VITAL SIGNS: Blood pressure 120/59 with a pulse of 69, respirations 18. GENERAL: He is a well-developed, well-nourished male in no acute distress. HEENT: Jugular venous pressure is normal. Carotid pulses are 2+ bilaterally and without bruits. CHEST: Examination of the chest reveals clear lung bledsoe. CARDIAC: He has a regular rhythm and rate without S3, S4 or murmur. ABDOMEN: He has a soft, nontender abdomen. Bowel sounds are present. There is no definite hepatosplenomegaly. EXTREMITIES: No clubbing, cyanosis or edema. LABORATORY DATA WBC 6.3, hemoglobin 12.3, platelets 248, potassium 4.3, BUN 20, creatinine 1.05, troponin less than 0.02. TSH 8.39. IMAGING STUDIES Chest x-ray shows no acute disease. CARDIOLOGY STUDIES EKG shows atrial paced rhythm, nonspecific lateral T-wave changes. IMPRESSION Recurrent syncope in this 70-year-old male with a long history of micturition syncope, status post recent permanent pacemaker implantation, history of recurrent oral cancers, hypothyroidism. I suspect his recurrent syncope is due to a vasovagal mediated event, possibly in part an element of orthostatic hypotension. As far as I can tell from his history, he once again was either on his way to the bathroom or about to urinate when he lost consciousness. Interrogation of his pacemaker does reveal about eight episodes of supraventricular tachycardia in the last few days, the longest episode about five minutes in duration. Overall, I do not believe he is losing consciousness due to supraventricular tachycardia. His maximum heart rate during these tachycardic episodes is only 120 beats per minute. There is no definite evidence for acute coronary syndrome. He did have an echocardiogram recently which was unremarkable. RECOMMENDATIONS 1. Start metoprolol for his paroxysmal supraventricular tachycardia. 2. Consider starting Florinef as I believe he continues to have vasovagal mediated syncope with a significant vasodepressor component. MD NITHIN Ann/ /8:35 AM /11:54 AM KEYON
--- NOTE | 2016-06-12 17:59 | EKG ---
Date Performed: 06/12/2016 Time Performed: 03:29:33 PTAGE: 70 years EKG: ELECTRONIC ATRIAL PACEMAKER NONSPECIFIC T-WAVE ABNORMALITY When compared to previous tracin g, the patient now has atrial Pacing. ABNORMAL RHYTHM ECG PREVIOUS TRACING : 06/01/2016 08.43 DOCTOR: Airam Morton Interpretating Date/Time 06/12/2016 17:58:54
[2016-06-12] MEDS ORDERED: PILL SPLITTER OTHER PRN (22:15)
[2016-06-13] VITALS (27 sets, daily range): BP systolic 154–187; BP diastolic 87–100; PULSE 69–118; RESP 16–18; TEMP 97–98.1; O2SAT 92–100
[2016-06-13] MEDS: METOPROLOL TARTRATE 25 MG TAB PO SCH (02:31)
[2016-06-13] MEDS: ACETAMINOPHEN 325 MG TAB PO PRN ×2 (05:34→12:02)
[2016-06-13] MEDS: LEVOTHYROXINE SODIUM 75 MCG TAB PO SCH (05:34)
[2016-06-13] MEDS: amLODIPine BESYLATE 5 MG TAB PO SCH ×2 (05:35→08:06)
[2016-06-13] MEDS: SODIUM CHLORIDE 0.9% FLUSH 5 ML FLUSH FLUSH SCH ×2 (08:06→20:21)
[2016-06-13] MEDS: MULTIVITAMINS/MINERALS THERAPEUTIC TAB PO SCH (08:06)
[2016-06-13] MEDS: FOLIC ACID 1 MG TAB PO SCH (08:06)
--- NOTE | 2016-06-13 08:36 | PD.CARD.PN ---
Subjective Subjective Remarks Denies pain, dyspnea, dizziness, palpitations, syncope. Objective Medications Item Value Date Time Amlodipine 2.5 mg 06/13/16 0600 Besylate DAILY/PO 06/13/16 0806 (Norvasc) Metoprolol 12.5 mg 06/12/16 1000 Tartrate Q8H/PO 06/13/16 0231 (Lopressor) Vital Signs / I&O Vital Signs Date Time Temp Pulse Resp B/P Pulse Ox O2 Delivery O2 Flow Rate FiO2 06/13/16 08:15 97.8 81 16 175/98 97 06/13/16 07:37 162/98 06/13/16 06:00 79 06/13/16 05:00 70 06/13/16 04:00 69 06/13/16 03:00 83 187/100 99 06/13/16 03:00 83 06/13/16 02:00 76 06/13/16 01:00 78 06/13/16 00:00 80 06/12/16 23:00 97.2 83 97 06/12/16 23:00 83 06/12/16 22:00 72 06/12/16 21:00 73 06/12/16 20:00 72 06/12/16 19:00 71 06/12/16 19:00 97.7 71 147/85 96 06/12/16 18:35 88 163/88 06/12/16 16:00 79 06/12/16 15:00 74 06/12/16 14:00 84 06/12/16 13:17 97.4 75 16 168/93 99 06/12/16 13:00 78 06/12/16 12:51 76 06/12/16 12:27 77 18 152/78 98 Nasal Cannula 2 06/12/16 11:00 75 18 152/83 99 Nasal Cannula 2 06/12/16 09:58 68 18 145/85 99 I/O 06/12/16 06/12/16 06/12/16 06/13/16 06/13/16 06/13/16 07:00 15:00 23:00 07:00 15:00 23:00 Intake Total 240 ml Output Total 700 ml Balance -460 ml Intake Oral 240 ml Output Urine Total 700 ml # Voids 1 Physical Exam GENERAL: Well developed, well nourished. No acute distress. HEENT: Jugular venous pressure is normal. CHEST: Lungs clear to auscultation bilaterally. Unlabored respiratory effort. CARDIAC: Regular rate and rhythm without S3, S4, or murmur. ABDOMEN: Soft, nontender, no hepatosplenomegaly. Bowel sounds present. EXTREMITIES: No clubbing, cyanosis, or edema. Laboratory Laboratory Tests Test 06/12/16 09:45 Troponin I LESS THAN 0.02 NG/ML Assessment and Plan Problem List: (1) Syncope Assessment and Plan: Stable overnight. No recurrent loss of consciousness. BP 's increasing with Florinef. Rec increase amlodipine, try to resume Florinef. (2) Paroxysmal supraventricular tachycardia Assessment and Plan: Stable overnight. No further SVT. Doubt SVT cause of his syncope. To continue metoprolol. (3) Hypertension Assessment and Plan: Suboptimal BP's. Increase amlodipine and metoprolol as needed. (4) Status post placement of cardiac pacemaker Code Status full code Discussed Condition With patient and his daughter at length Problem Qualifiers (1) Syncope: Qualified Code: R55 - Vasovagal syncope (2) Hypertension: Qualified Code: I10 - Essential hypertension River Davidson MD Jun 13, 2016 08:36
[2016-06-13] MEDS ORDERED: amLODIPine BESYLATE 5 MG TAB PO ONE (08:45)
[2016-06-13] MEDS ORDERED: amLODIPine BESYLATE 5 MG TAB PO SCH (09:00)
[2016-06-13] MEDS: METOPROLOL TARTRATE 50 MG TAB PO SCH ×2 (10:09→20:21)
--- NOTE | 2016-06-13 13:04 | HHI.FF ---
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 My clinical findings support the need for the requested home health care services because: Patient has SOB Deconditioned w/ increased weakness Limited ability to care for self Need for psychosocial assistance High risk of falls Infection w/ risk of complications I certify that my clinical findings support that this patient is homebound because: Impaired cognitive ability/safety Unsteady gait/balance Unsafe to leave home unassisted Need for psychosocial assistance Unable to use public transportation Alexandre Corrales DO Jun 13, 2016 1:04 pm
--- NOTE | 2016-06-13 16:45 | HHI.PR ---
Subjective Remarks Follow up for syncopal episode. Patient is doing well. No acute concerns. Denies any CP, SOB, fever, chills. He has been getting up, going to the bathroom without any further syncopal episodes. BP has been on the higher side. Objective Vitals Vital Signs Date Time Temp Pulse Resp B/P Pulse Ox O2 Delivery O2 Flow Rate FiO2 06/13/16 15:00 97.6 94 18 174/97 98 06/13/16 12:00 74 06/13/16 11:00 98.1 72 18 170/90 100 06/13/16 11:00 76 06/13/16 10:00 82 06/13/16 09:00 118 06/13/16 08:44 98 21 06/13/16 08:15 97.8 81 16 175/98 97 06/13/16 08:00 81 06/13/16 07:37 162/98 06/13/16 07:15 73 06/13/16 06:00 79 06/13/16 05:00 70 06/13/16 04:00 69 06/13/16 03:00 83 187/100 99 06/13/16 03:00 83 06/13/16 02:00 76 06/13/16 01:00 78 06/13/16 00:00 80 06/12/16 23:00 97.2 83 97 06/12/16 23:00 83 06/12/16 22:00 72 06/12/16 21:00 73 06/12/16 20:00 72 06/12/16 19:00 71 06/12/16 19:00 97.7 71 147/85 96 06/12/16 18:35 88 163/88 I/O 06/12/16 06/12/16 06/12/16 06/13/16 06/13/16 06/13/16 07:00 15:00 23:00 07:00 15:00 23:00 Intake Total 240 ml Output Total 700 ml Balance -460 ml Intake Oral 240 ml Output Urine Total 700 ml # Voids 1 Result Diagram: 06/12/16 0340 06/12/16 0340 Imaging Last Impressions Chest X-Ray 06/12/16 0336 Signed Impressions: Service Date/Time: Sunday, June 12, 2016 03:47 - CONCLUSION: No acute disease. No significant change has occurred. Arden Yi MD Objective Remarks GENERAL: AOX3, NAD. SKIN: Warm and dry. HEAD: Normocephalic except surgical changes on the left side of the mouth. EYES: No scleral icterus. No injection or drainage. NECK: Supple, trachea midline. No JVD or lymphadenopathy. CARDIOVASCULAR: Regular rate and rhythm without murmurs, gallops, or rubs. RESPIRATORY: Breath sounds equal bilaterally. No accessory muscle use. GASTROINTESTINAL: Abdomen soft, non-tender, nondistended. MUSCULOSKELETAL: No cyanosis, or edema. BACK: Nontender without obvious deformity. No CVA tenderness. A/P Problem List: (1) Syncope ICD Code: R55 Status: Acute (2) Sick sinus syndrome ICD Code: I49.5 Status: Acute (3) Hypothyroidism ICD Code: E03.9 Status: Chronic (4) Hypertension ICD Code: I10 Status: Acute (5) History of oral cancer ICD Code: Z85.819 Status: Chronic Assessment and Plan Mr. Carreon, 70 with a history of sick sinus syndrome s/p recent pacemaker insertion who presents to the ED with an episode of syncope. No chest pain, shortness of breath, fever, chills. - Probable vasovagal syncope - Sick sinus syndrome s/p pacemaker insertion - MRI compatible Biotronik Eluna DDD pacemaker inserted on 06/04/2016. - Possible orthostasis hypotension. - Cardiology - Dr. Davidson has evaluated patient. - Device interrogation showed SVT on 06/10/2016. No SVT on 06/11/2016 when patient was symptomatic. - Per device interrogation, device is working as intended, no changes were made in programming. - Continue Metoprolol 50mg BID and fludrocortisone 0.1mg Qday. - Tele monitoring. - Anxiety - Continue Clonazepam 1mg TID PRN - Hypertension - Continue Amlodipine 10mg Qday. IF BP remains elevated, we will start Lisinopril - Hypothyroidism - Continue Levothyroxine 75 mcg QAM. Full code. SCDs Problem Qualifiers (1) Syncope: Qualified Code: R55 - Vasovagal syncope (2) Hypertension: Qualified Code: I10 - Essential hypertension Alexandre Corrales DO Jun 13, 2016 16:45
[2016-06-14] VITALS (18 sets, daily range): BP systolic 127–173; BP diastolic 72–98; PULSE 76–99; RESP 16–18; TEMP 97.8–98.1; O2SAT 98–100
[2016-06-14] MEDS: ACETAMINOPHEN 325 MG TAB PO PRN ×2 (00:21→13:43)
[2016-06-14] MEDS: LEVOTHYROXINE SODIUM 75 MCG TAB PO SCH (05:27)
[2016-06-14] MEDS: SODIUM CHLORIDE 0.9% FLUSH 5 ML FLUSH FLUSH SCH (08:03)
[2016-06-14] MEDS: FOLIC ACID 1 MG TAB PO SCH (08:31)
[2016-06-14] MEDS: MULTIVITAMINS/MINERALS THERAPEUTIC TAB PO SCH (08:31)
--- NOTE | 2016-06-14 08:47 | PD.CARD.PN ---
Subjective Subjective Remarks Denies CP, dyspnea, dizziness, palpitations. Hasn't had to get up to go to the bathroom at night since coming into the hospital. Objective Medications Item Value Date Time Amlodipine 10 mg 06/14/16 0900 Besylate DAILY/PO 06/14/16830 (Norvasc) Fludrocortisone 0.1 mg 06/14/16 0900 Acetate DAILY/PO 06/14/16830 (Florinef) Metoprolol 100 mg 06/14/16 0900 Tartrate BID/PO 06/14/16830 (Lopressor) Vital Signs / I&O Vital Signs Date Time Temp Pulse Resp B/P Pulse Ox O2 Delivery O2 Flow Rate FiO2 06/14/16 05:00 82 06/14/16 04:01 87 156/96 99 06/14/16 04:00 76 06/14/16 03:00 87 06/14/16 02:00 81 06/14/16 01:00 85 06/14/16 00:00 83 06/13/16 23:00 83 06/13/16 23:00 97.4 83 154/87 98 06/13/16 22:00 76 06/13/16 21:00 76 06/13/16 20:00 95 06/13/16 19:00 92 06/13/16 19:00 97.0 92 177/97 92 06/13/16 18:00 92 06/13/16 17:00 83 06/13/16 16:00 80 06/13/16 15:00 97.6 94 18 174/97 98 06/13/16 15:00 99 06/13/16 14:00 81 06/13/16 13:00 77 06/13/16 12:00 74 06/13/16 11:00 98.1 72 18 170/90 100 06/13/16 11:00 76 06/13/16 10:00 82 06/13/16 09:00 118 I/O 06/13/16 06/13/16 06/13/16 06/14/16 06/14/16 06/14/16 07:00 15:00 23:00 07:00 15:00 23:00 Intake Total 240 ml 1860 ml 240 ml Output Total 700 ml 2 ml Balance -460 ml 1860 ml 238 ml Intake Oral 240 ml 960 ml 240 ml Tube Feeding 720 ml Other 180 ml Output Urine Total 700 ml 2 ml # Voids 1 5 # Bowel Movements 1 Physical Exam GENERAL: Well developed, well nourished. No acute distress. HEENT: Jugular venous pressure is normal. CHEST: Lungs clear to auscultation bilaterally. Unlabored respiratory effort. CARDIAC: Regular rate and rhythm without S3, S4, or murmur. ABDOMEN: Soft, nontender, no hepatosplenomegaly. Bowel sounds present. EXTREMITIES: No clubbing, cyanosis, or edema. Assessment and Plan Problem List: (1) Syncope Assessment and Plan: Stable overnight. No recurrent loss of consciousness. BP 's high with Florinef. Agree with reduced dose of Florinef. OK for discharge from a cardiac standpoint, f/u with me scheduled 06/25/16. (2) Paroxysmal supraventricular tachycardia Assessment and Plan: Stable overnight. No further SVT. Doubt SVT cause of his syncope. To continue metoprolol. (3) Hypertension Assessment and Plan: Better BP this morning though still suboptimal. Amlodipine and metoprolol at max dosing. Rec add LORENZO-I. Follow up BP check in the office. (4) Status post placement of cardiac pacemaker Code Status full code Discussed Condition With patient Problem Qualifiers (1) Syncope: Qualified Code: R55 - Vasovagal syncope (2) Hypertension: Qualified Code: I10 - Essential hypertension River Davidson MD Jun 14, 2016 08:47
[2016-06-14] MEDS ORDERED: ENALAPRIL MALEATE 10 MG TAB PO SCH (09:00)
[2016-06-14] MEDS ORDERED: METOPROLOL TARTRATE 100 MG TAB PO SCH (09:00)
[2016-06-14] MEDS ORDERED: FLUDROCORTISONE ACETATE 0.1 MG TAB PO SCH (09:00)
--- NOTE | 2016-06-14 09:17 | HHI.PR ---
Objective Vitals Vital Signs Date Time Temp Pulse Resp B/P Pulse Ox O2 Delivery O2 Flow Rate FiO2 06/14/16 05:00 82 06/14/16 04:01 87 156/96 99 06/14/16 04:00 76 06/14/16 03:00 87 06/14/16 02:00 81 06/14/16 01:00 85 06/14/16 00:00 83 06/13/16 23:00 83 06/13/16 23:00 97.4 83 154/87 98 06/13/16 22:00 76 06/13/16 21:00 76 06/13/16 20:00 95 06/13/16 19:00 92 06/13/16 19:00 97.0 92 177/97 92 06/13/16 18:00 92 06/13/16 17:00 83 06/13/16 16:00 80 06/13/16 15:00 97.6 94 18 174/97 98 06/13/16 15:00 99 06/13/16 14:00 81 06/13/16 13:00 77 06/13/16 12:00 74 06/13/16 11:00 98.1 72 18 170/90 100 06/13/16 11:00 76 06/13/16 10:00 82 I/O 06/13/16 06/13/16 06/13/16 06/14/16 06/14/16 06/14/16 07:00 15:00 23:00 07:00 15:00 23:00 Intake Total 240 ml 1860 ml 240 ml Output Total 700 ml 2 ml Balance -460 ml 1860 ml 238 ml Intake Oral 240 ml 960 ml 240 ml Tube Feeding 720 ml Other 180 ml Output Urine Total 700 ml 2 ml # Voids 1 5 # Bowel Movements 1 Result Diagram: 06/12/16 03406/12/16 034 Objective Remarks GENERAL: AOX3, NAD. SKIN: Warm and dry. HEAD: Normocephalic except surgical changes on the left side of the mouth. EYES: No scleral icterus. No injection or drainage. NECK: Supple, trachea midline. No JVD or lymphadenopathy. CARDIOVASCULAR: Regular rate and rhythm without murmurs, gallops, or rubs. RESPIRATORY: Breath sounds equal bilaterally. No accessory muscle use. GASTROINTESTINAL: Abdomen soft, non-tender, nondistended. MUSCULOSKELETAL: No cyanosis, or edema. BACK: Nontender without obvious deformity. No CVA tenderness. A/P Problem List: (1) Syncope ICD Code: R55 Status: Acute (2) Sick sinus syndrome ICD Code: I49.5 Status: Acute (3) Hypothyroidism ICD Code: E03.9 Status: Chronic (4) Hypertension ICD Code: I10 Status: Acute (5) History of oral cancer ICD Code: Z85.819 Status: Chronic Assessment and Plan Mr. Carreon, 70 with a history of sick sinus syndrome s/p recent pacemaker insertion who presents to the ED with an episode of syncope. No chest pain, shortness of breath, fever, chills. - Probable vasovagal syncope - Sick sinus syndrome s/p pacemaker insertion - MRI compatible Biotronik Eluna DDD pacemaker inserted on 06/04/2016. - Possible orthostasis hypotension. - Cardiology - Dr. Davidson has evaluated patient. - Device interrogation showed SVT on 06/10/2016. No SVT on 06/11/2016 when patient was symptomatic. - Per device interrogation, device is working as intended, no changes were made in programming. - Continue Metoprolol 50mg BID and fludrocortisone 0.1mg Qday. - Tele monitoring. - Anxiety - Continue Clonazepam 1mg TID PRN - Hypertension - Continue Amlodipine 10mg Qday. IF BP remains elevated, we will start Lisinopril - Hypothyroidism - Continue Levothyroxine 75 mcg QAM. Full code. SCDs Problem Qualifiers (1) Syncope: Qualified Code: R55 - Vasovagal syncope (2) Hypertension: Qualified Code: I10 - Essential hypertension Alexandre Corrales DO Jun 14, 2016 09:17
[2016-06-14] MEDS ORDERED: IOHEXOL 350 MG/ML 10 ML VIAL (for RAD DIAG) IV ONE (09:24)
--- NOTE | 2016-06-14 10:06 | RADRPT ---
EXAM DATE/TIME: 06/14/2016 09:14 [facility] COMPARISON: No previous studies available for comparison. INDICATIONS : Syncope. RADIATION DOSE: 56.77 CTDIvol (mGy) MEDICAL HISTORY : Carcinoma, oral cavity. Osteomyelitis. SURGICAL HISTORY : Teeth removed ENCOUNTER: Initial ACUITY: 2 days PAIN SCALE: 0/10 LOCATION: cranial TECHNIQUE: Multiple contiguous axial images were obtained of the head. Using automated exposure control and adj ustment of the mA and/or kV according to patient size, radiation dose was kept as low as reasonably a chievable to obtain optimal diagnostic quality images. FINDINGS: CEREBRUM: The ventricles are normal for age. No evidence of midline shift, mass lesion, hemorrhage or acute in farction. No extra-axial fluid collections are seen. POSTERIOR FOSSA: The cerebellum and brainstem are intact. The 4th ventricle is midline. The cerebellopontine angle i s unremarkable. EXTRACRANIAL: The visualized portion of the orbits is intact. SKULL: The calvaria is intact. No evidence of skull fracture. CONCLUSION: No acute disease. Linda Gillette MD on June 14, 2016 at 9:48 Board Certified Radiologist. This report was verified electronically.
[2016-06-14] MEDS ORDERED: AMLO10 PO (13:13)
[2016-06-14] MEDS ORDERED: METO-338 PO (13:13)
[2016-06-14] MEDS ORDERED: ENAL10TA PO (13:13)
[2016-06-14] MEDS ORDERED: FLUD.1 PO (13:13)
--- NOTE | 2016-06-14 13:14 | HHI.DS ---
Discharge Summary Admission Date Jun 12, 2016 at 5:03 am Discharge Date: Jun 14, 2016 Admitting Diagnosis syncope (1) Syncope ICD Code: R55 (2) Sick sinus syndrome ICD Code: I49.5 (3) Hypothyroidism ICD Code: E03.9 (4) Hypertension ICD Code: I10 (5) History of oral cancer ICD Code: Z85.819 Procedures None. Brief History - From Admission Mr. Carreon is a pleasant 70 year old male with a history of oral cancer, sick sinus syndrome with a recent pacemaker placement who presents to the ED due to a syncopal episode. Patient got up go to the bathroom and had a syncopal episode. Patient's called EMS and en route EMS noted possible V tach vs. junctional rhythm. Patient was found to have low systolic BP and received a 250mL NS bolus. On arrival BP 97/55, HR 60, R 14, O2 sat 98-100% on 2L of O2 via nasal cannula. EKG shows HR 60, atrially paced rhythm. Patient denies any chest pain, SOB, fever, chills. Denies any changes in bowel or bladder habits. Dr. Davidson (cardiology) who inserted pacemaker about a week prior to this admission already evaluated patient in the ED. CBC/BMP: 06/12/16 0340 06/12/16 0340 Significant Findings Laboratory Tests Test 06/12/16 06/12/16 03:40 09:45 Red Blood Count 4.11 MIL/MM3 (4.50-5.90) Hemoglobin 12.3 GM/DL (13.0-17.0) Hematocrit 35.4 % (39.0-51.0) Monocytes (%) (Auto) 10.3 % (0.0-8.0) Eosinophils (%) (Auto) 7.6 % (0.0-4.0) Eosinophils # (Auto) 0.5 TH/MM3 (0-0.4) Blood Urea Nitrogen 20 MG/DL (7-18) Estimat Glomerular Filtration 70 ML/MIN (>89) Rate Random Glucose 109 MG/DL (74-106) Troponin I LESS THAN 0.02 LESS THAN 0.02 NG/ML NG/ML (0.02-0.05) (0.02-0.05) Albumin 3.0 GM/DL (3.4-5.0) Thyroid Stimulating Hormone 8.390 uIU/ML 3rd Gen (0.358-3.740) Imaging Last Impressions Neck CTA 06/13/16 0000 Signed Impressions: Service Date/Time: May 09:14 - CONCLUSION: No evidence of significant stenosis. The asymmetry of the oropharynx is secondary to resection of the left palantine soft tissues. Linda Gillette MD Head CTA 06/13/16 0000 Signed Impressions: Service Date/Time: May 09:14 - CONCLUSION: No vascular abnormality identified. Linda Gillette MD Head CT 06/13/16 0000 Signed Impressions: Service Date/Time: May 09:14 - CONCLUSION: No acute disease. Linda Gillette MD Chest X-Ray 06/12/16 0336 Signed Impressions: Service Date/Time: Sunday, June 12, 2016 03:47 - CONCLUSION: No acute disease. No significant change has occurred. Arden Yi MD PE at Discharge GENERAL: AOX3, NAD. SKIN: Warm and dry. HEAD: Normocephalic except surgical changes on the left side of the mouth. EYES: No scleral icterus. No injection or drainage. NECK: Supple, trachea midline. No JVD or lymphadenopathy. CARDIOVASCULAR: Regular rate and rhythm without murmurs, gallops, or rubs. RESPIRATORY: Breath sounds equal bilaterally. No accessory muscle use. GASTROINTESTINAL: Abdomen soft, non-tender, nondistended. MUSCULOSKELETAL: No cyanosis, or edema. BACK: Nontender without obvious deformity. No CVA tenderness. Pt update on day of discharge Patient is currently doing well. Denies any further syncopal episodes. Denies any chest pain, shortness of breath, fever or chills. Patient underwent CT of the head as well as CTA head and neck. Discussed with radiology - no acute findings. Hospital Course Mr. Carreon, 70 with a history of sick sinus syndrome s/p recent pacemaker insertion who presents to the ED with an episode of syncope. No chest pain, shortness of breath, fever, chills. - Probable vasovagal syncope - Sick sinus syndrome s/p pacemaker insertion - MRI compatible Biotronik Eluna DDD pacemaker inserted on 06/04/2016. - Possible orthostasis hypotension. - Cardiology - Dr. Davidson is following. - Device interrogation showed SVT on 06/10/2016. No SVT on 06/11/2016 when patient was symptomatic. - Per device interrogation, device is working as intended, no changes were made in programming. - Continue Metoprolol 100mg BID and fludrocortisone 0.1mg Qday. - Head CT, Head and Neck CTA negative for any acute findings. - Anxiety - Continue Clonazepam 1mg TID PRN - Hypertension - Continue Amlodipine 10mg Qday. Cardiology started LORENZO inhibitor. - Hypothyroidism - Continue Levothyroxine 75 mcg QAM. PT recommended home with home health. However, patient did not feel safe to go home. [facility] declined patient and subsequently patient was discharged to SNF. Pt Condition on Discharge: Good Discharge Disposition: Discharge to SNF Discharge Time: > 30 minutes Discharge Instructions DIET: Follow Instructions for: Heart Healthy Diet, Soft Diet Activities you can perform: Regular-No Restrictions Follow up Referrals: Cardiology - 06/25/16 with River Davidson MD PCP Follow-up - 1 Week New Medications: Amlodipine (Norvasc) 10 Mg Tab 10 MG PO DAILY Blood Pressure Management #30 TAB Enalapril (Enalapril) 10 Mg Tab 10 MG PO BID Blood Pressure Management #30 TAB Fludrocortisone (Fludrocortisone) 0.1 Mg Tab 0.1 MG PO DAILY orthostasis #30 TAB Metoprolol Tartrate (Lopressor) 100 Mg Tab 100 MG PO BID Heart #60 TAB Continued Medications: Acetaminophen (Mapap) 500 Mg Tab 500 MG PO TID PRN PAIN Ref 0 TAB Azelastine Nasal [place] (Azelastine Nasal [place]) 0.15% [place] 1 SPRAY EACH NARE DIRECTED To each nostril. PRN ALLERGIES #1 Ref 0 BOTTLE Clonazepam (Klonopin) 1 Mg Tab 1 MG PO TID PRN ANXIETY AND/OR AGITATION #90 Ref 0 TAB Dicyclomine (Bentyl) 10 Mg Cap 10 MG PO DAILY PRN SPASM Ref 0 CAP Folic Acid (Folic Acid) 400 Mcg Tab 400 MCG PO DAILY Nutritional Supplement Ref 0 TAB Levothyroxine (Levothyroxine) 75 Mcg Tab 75 MCG PO DAILY Thyroid #30 Ref 0 TAB Multiple Vitamins W/ Minerals (Centrum) 1 Tab 1 TAB PO DAILY Nutritional Supplement Ref 0 TAB Naproxen Sodium (Aleve) 220 Mg Tab 220 MG PO DAILY PRN Pain Management Ref 0 TAB Propylene Glycol Opth Drops (Systane Balance Druze Opth Drops) 0.6% Soln 1 DROP EACH EYE TID PRN DRY EYE Ref 0 BOTTLE Sodium Fluoride (Dental) (Sf 5000 Plus) 1.1 % Cre 1 APPLIC MT DAILY Alexandre Corrales DO Jun 14, 2016 13:14
--- NOTE | 2016-06-14 13:51 | RADRPT ---
EXAM DATE/TIME: 06/14/2016 09:14 [facility] COMPARISON: No previous studies available for comparison. INDICATIONS : Syncope. IV CONTRAST: 99 cc Omnipaque 350 (iohexol) IV ; Cumulative dose for multiple exams. RADIATION DOSE: 13.53 CTDIvol (mGy) ; Combined studies MEDICAL HISTORY : Carcinoma, oral cavity. Osteomyelitis. SURGICAL HISTORY : Teeth removed ENCOUNTER: Initial ACUITY: 2 days PAIN SCALE: 0/10 LOCATION: neck TECHNIQUE: Volumetric scanning was performed using a multirow detector CT scanner. The data was post processed with a variety of visualization algorithms including full-volume maximum intensity projection, multip lanar sliding thin-slab reformation, curved-planar reformation, and surface-rendering techniques. Us ing automated exposure control and adjustment of the mA and/or kV according to patient size, radiatio n dose was kept as low as reasonably achievable to obtain optimal diagnostic quality images. FINDINGS: The oral cavity demonstrates asymmetric prominence of the right tonsillar tissues. By physician repor t and the left soft tissues have been resected. AORTIC ARCH: There is a three-vessel origin of the great vessels from the aorta. No evidence of ostial narrowing. RIGHT CAROTID: The common carotid artery is intact. The carotid bulb has a normal configuration without ulceration o r narrowing. The internal carotid artery lumen is smooth without stenosis. The external carotid marisela ry is intact. LEFT CAROTID: The common carotid artery is intact. The carotid bulb has a normal configuration without ulceration or narrowing. The internal carotid artery lumen is smooth without stenosis. The external carotid ar cresencio is intact. VERTEBRALS: The vertebral arteries have a symmetric diameter. No stenotic lesions are seen. CONCLUSION: No evidence of significant stenosis. The asymmetry of the oropharynx is secondary to resection of the left palantine soft tissues. Linda Gillette MD on June 14, 2016 at 13:44 Board Certified Radiologist. This report was verified electronically.
--- NOTE | 2016-06-14 13:52 | RADRPT ---
EXAM DATE/TIME: 06/14/2016 09:14 [facility] COMPARISON: No previous studies available for comparison. INDICATIONS : Syncope. IV CONTRAST: 99 cc Omnipaque 350 (iohexol) IV ; Cumulative dose for multiple exams. RADIATION DOSE: 13.53 CTDIvol (mGy) ; Combined studies MEDICAL HISTORY : Carcinoma, oral cavity. Osteomyelitis. SURGICAL HISTORY : Teeth removed ENCOUNTER: Initial ACUITY: 2 days PAIN SCALE: 0/10 LOCATION: distal TECHNIQUE: Volumetric scanning was performed using a multi-row detector CT scanner. The data was post processed with a variety of visualization algorithms including full volume maximum intensity projection, multi -planar sliding thin slab reformation, curved planar reformation, and surface rendering techniques. Using automated exposure control and adjustment of the mA and/or kV according to patient size, radiat ion dose was kept as low as reasonably achievable to obtain optimal diagnostic quality images. FINDINGS: There is excellent visualization of the major intracranial arteries out to the second-order branch ve ssels. There is no evidence for aneurysm, vessel truncation or stenosis, and no evidence for vascula r malformation. The imaged brain is unremarkable. Mild ethmoidal air cell mucoperiosteal thickening. CONCLUSION: No vascular abnormality identified. Linda Gillette MD on June 14, 2016 at 13:50 Board Certified Radiologist. This report was verified electronically.
[2016-06-14] MEDS ORDERED: AZEL0.055 EACH NARE (14:46)
[2016-06-14] MEDS ORDERED: CLON1TAB GT (14:46)
[2016-06-14] MEDS ORDERED: DICY10 GT (14:46)
== END 2016-06-14 17:20 ==
LOC: NEPC 03:21 → NEDA 05:03 → INTOOBSV 05:03 → HCIS 12:48
PROVIDERS: ADMIT Hospitalist; ATTEND Hospitalist
DX: R55 Syncope and collapse (principal); I49.5 Sick sinus syndrome; E03.9 Hypothyroidism, unspecified; I10 Essential (primary) hypertension; I47.1 Supraventricular tachycardia; R94.31 Abnormal electrocardiogram [ECG] [EKG]; F41.9 Anxiety disorder, unspecified; M26.621 Arthralgia of right temporomandibular joint; Z95.0 Presence of cardiac pacemaker; Z92.3 Personal history of irradiation
CPT/HCPCS: 70450; 70496; 70498; 71010; 80053; 82550; 82552; 83735; 83880; 84439; 84443; 84481; 84484; 85025; 93005; 97110; 97163; 97530; 99285; G0378; G8987; G8988; Q9967

== ENCOUNTER 2016-06-16 12:46 | Observation (INO) | payer MEDICARE, OTHER ==
[2016-06-16] VITALS (8 sets, daily range): BP systolic 107–150; BP diastolic 63–82; PULSE 71–108; RESP 16–20; TEMP 97.8–98.4; O2SAT 98–100
[~2016-06-16] VITALS: Ht 172.7 cm; Wt 68.0 kg
[~2016-06-16 12:46] MED LIST changes: +AMLO10 PO; +CLON1TAB GT; +ENAL10TA PO; +FLUD.1 PO; +METO-338 PO
[2016-06-16] MEDS ORDERED: SODIUM CHLORID 0.9% 500 ML INJ 500 ML IV ONE (13:00)
[2016-06-16] MEDS ORDERED: SODIUM CHLORIDE 0.9% FLUSH 5 ML FLUSH IVF PRN (13:00)
--- NOTE | 2016-06-16 13:00 | PD ---
HPI Chief Complaint: General Weakness Time Seen by Provider: 13:00 Travel History International Travel<30 days: No Contact w/Intl Traveler<30days: No Traveled to known affect area: No History of Present Illness HPI 70-year-old male with history of oral cancer, currently with a PEG tube, recently diagnosed with sick sinus syndrome status post pacemaker in May by Dr. Davidson, presents to emergency department today for evaluation of acute onset dizziness with associated nausea and diaphoresis while sitting up this morning. His daughter states that it was also associated with urine incontinence. Patient was just hospitalized and had a syncopal workup June 12 discharged the to [facility]. Patient states there was mild chest discomfort associated with this incident. Denies any fever or chills. Denies any vomiting. No diarrhea. No other symptoms to report. Patient and his are from [place]. I spoke with the patient's daughter who states that she is a physician. She tells me that the patient had 2 episodes yesterday and 2 episodes today felt lightheaded, nauseous, diaphoretic. She states today was the first time he experienced urinary incontinent with an episode. She is concerned that the patient has been started on Norvasc and Vasotec in addition to metoprolol being increased. She states the metoprolol following interrogation of his pacemaker showing episodes of SVT. PFSH Past Medical History Heart Rhythm Problems: No Cancer: Yes (Oral cancer) Cardiac Catheterization: Yes Cardiovascular Problems: Yes High Cholesterol: Yes Chemotherapy: Yes Chest Pain: No Congestive Heart Failure: No Cerebrovascular Accident: No Diabetes: Yes Endocrine: Yes Genitourinary: No Immune Disorder: No Musculoskeletal: No Neurologic: No Reproductive: No Respiratory: No Radiation Therapy: Yes Thyroid Disease: Yes (Hypothyroidism) Past Surgical History Abdominal Surgery: Yes (PEG tube placement 06/05) Cardiac Surgery: No Ear Surgery: No Endocrine Surgery: No Eye Surgery: No Genitourinary Surgery: No Gynecologic Surgery: No Oral Surgery: Yes Pacemaker: Yes Thoracic Surgery: No Social History Alcohol Use: No Tobacco Use: No Substance Use: No Allergies-Medications (Allergen,Severity, Reaction): Coded Allergies: Penicillin (Verified Allergy, Severe, Anaphylaxis, 06/16/16) Aztreonam (Verified Allergy, Intermediate, Rash, 06/16/16) Bactrim (Verified Allergy, Intermediate, Rash, 06/16/16) Ciprofloxacin (Verified Allergy, Intermediate, Rash, 06/16/16) Clindamycin (Verified Allergy, Intermediate, Rash, 06/16/16) Levofloxacin (Verified Allergy, Intermediate, Rash, 06/16/16) Salicylates (Verified Allergy, Intermediate, RASH , 06/16/16) Sulfa (Verified Allergy, Intermediate, RASH, 06/16/16) Reported Meds & Prescriptions Reported Meds & Active Scripts Active Reported Fludrocortisone (Fludrocortisone Acetate) 0.1 Mg Tab 0.1 Mg GT DAILY Vasotec (Enalapril Maleate) 10 Mg Tab 10 Mg PO BID Lopressor (Metoprolol Tartrate) 100 Mg Tab 100 Mg GT BID Amlodipine (Amlodipine Besylate) 5 Mg Tab 5 Mg GT DAILY Clonazepam 1 Mg Tab 1 Mg GT BID Azelastine Nasal [place] (Azelastine HCl) 0.15% [place] 1 [place] EACH NARE BID To each nostril. Aleve (Naproxen Sodium) 220 Mg Tab 220 Mg GT DAILY PRN Sf 5000 Plus (Sodium Fluoride (Dental)) 1.1 % Cre 1 Applic GT DAILY Systane Balance [place] Opth Drops (Propylene Glycol Opth Drops) 0.6% Soln 1 Drop EACH EYE TID PRN Levothyroxine (Levothyroxine Sodium) 75 Mcg Tab 75 Mcg GT DAILY Folic Acid 400 Mcg Tab 400 Mcg GT DAILY Bentyl (Dicyclomine HCl) 10 Mg Cap 10 Mg GT DAILY PRN Klonopin (Clonazepam) 1 Mg Tab 1 Mg GT TID PRN Centrum (Multiple Vitamins W/ Minerals) 1 Tab 1 Tab GT DAILY Azelastine Nasal [place] (Azelastine HCl) 0.15% [place] 1 [place] EACH NARE DIRECTED PRN To each nostril. Mapap (Acetaminophen) 500 Mg Tab 500 Mg GT TID PRN Review of Systems Except as stated in HPI: all other systems reviewed are Neg Physical Exam Narrative GENERAL: Thin male patient, lying in bed, in no acute distress SKIN: Warm and dry. HEAD: Atraumatic. Normocephalic. Mild deformity of the chin from previous surgery. EYES: Pupils equal and round. No scleral icterus. No injection or drainage. ENT: No nasal bleeding or discharge. Mucous membranes pink and moist. NECK: Trachea midline. No JVD. CARDIOVASCULAR: Regular rate and rhythm. No murmur appreciated. RESPIRATORY: No accessory muscle use. Clear to auscultation. Breath sounds equal bilaterally. GASTROINTESTINAL: Abdomen soft, non-tender, nondistended. Hepatic and splenic margins not palpable. PEG tube in place MUSCULOSKELETAL: No obvious deformities. No clubbing. No cyanosis. No edema. NEUROLOGICAL: Awake and alert. No obvious cranial nerve deficits. Motor grossly within normal limits. Normal speech. PSYCHIATRIC: Appropriate mood and affect; insight and judgment normal. Data Data Last Documented VS Vital Signs Date Time Temp Pulse Resp B/P Pulse Ox O2 Delivery O2 Flow Rate FiO2 06/16/16 15:00 97.8 78 16 107/66 100 Room Air Orders Electrocardiogram (06/16/16 ) Basic Metabolic Panel (Bmp) (06/16/16 12:59) B-Type Natriuretic Peptide (06/16/16 12:59) Ckmb (Isoenzyme) Profile (06/16/16 12:59) Complete Blood Count With Diff (06/16/16 12:59) Magnesium (Mg) (06/16/16 12:59) Prothrombin Time / Inr (Pt) (06/16/16 12:59) Act Partial Throm Time (Ptt) (06/16/16 12:59) Troponin I (06/16/16 12:59) Chest, Single Ap (06/16/16 12:59) Ecg Monitoring (06/16/16 12:59) Bilateral Bp Monitoring (06/16/16 12:59) Iv Access Insert/Monitor (06/16/16 12:59) Oximetry (06/16/16 12:59) Oxygen Administration (06/16/16 12:59) Sodium Chloride 0.9% Flush (Ns Flush) (06/16/16 13:00) Sodium Chlorid 0.9% 500 Ml Inj (Ns 500 M (06/16/16 13:00) Admit Order (Ed Use Only) (06/16/16 15:43) Labs Laboratory Tests Test 06/16/16 06/16/16 13:00 13:50 White Blood Count 9.0 TH/MM3 Red Blood Count 4.32 MIL/MM3 Hemoglobin 13.0 GM/DL Hematocrit 37.5 % Mean Corpuscular Volume 86.7 FL Mean Corpuscular Hemoglobin 30.2 PG Mean Corpuscular Hemoglobin 34.8 % Concent Red Cell Distribution Width 13.6 % Platelet Count 317 TH/MM3 Mean Platelet Volume 8.1 FL Neutrophils (%) (Auto) 76.6 % Lymphocytes (%) (Auto) 13.7 % Monocytes (%) (Auto) 5.9 % Eosinophils (%) (Auto) 3.1 % Basophils (%) (Auto) 0.7 % Neutrophils # (Auto) 6.9 TH/MM3 Lymphocytes # (Auto) 1.2 TH/MM3 Monocytes # (Auto) 0.5 TH/MM3 Eosinophils # (Auto) 0.3 TH/MM3 Basophils # (Auto) 0.1 TH/MM3 CBC Comment DIFF FINAL Differential Comment Sodium Level 136 MEQ/L Potassium Level 4.2 MEQ/L Chloride Level 101 MEQ/L Carbon Dioxide Level 27.0 MEQ/L Anion Gap 8 MEQ/L Blood Urea Nitrogen 22 MG/DL Creatinine 1.17 MG/DL Estimat Glomerular Filtration 62 ML/MIN Rate Random Glucose 196 MG/DL Calcium Level 8.6 MG/DL Magnesium Level 2.4 MG/DL Total Creatine Kinase 84 U/L Troponin I LESS THAN 0.02 NG/ML B-Type Natriuretic Peptide 23 PG/ML Prothrombin Time 10.7 SEC Prothromb Time International 1.0 RATIO Ratio Activated Partial 32.2 SEC Thromboplast Time MDM Medical Decision Making Medical Screen Exam Complete: Yes Emergency Medical Condition: Yes Medical Record Reviewed: Yes Differential Diagnosis Syncope versus near syncope versus electrolyte abnormality versus seizure versus pacemaker dysfunction versus ACS versus dysrhythmia versus arrhythmia versus intracranial etiology Narrative Course 70-year-old male presents to the emergency department for evaluation of an episode where he lightheaded, nauseous, diaphoretic. Patient was discharged 2 days ago following a syncopal workup. He recently had a pacemaker placed for sick sinus syndrome. Patient appears overall well on the bed. He is without distress. EKG is currently without acute changes, reviewed my attending. Lab work is without exudates. Troponin is less than 0.02. I discussed the patient with my attending Dr. Block. I spoke with Dr. Allison who requested interrogation of the pacemaker. I discussed the patient with Dr. Hall. Patient will be admitted to the [facility] therapist's observation Physician Communication Physician Communication [phone] Allison, who is covering for Dr. Davidson. He requests interrogation of the pacemaker. I contacted [employer] and patient will be interrogated with the hour. Diagnosis Primary Impression: Near syncope Additional Impression: Status post placement of cardiac pacemaker Admitting Information Admitting Physician Requests: Observation Condition: Stable Vinita Atkinson Jun 16, 2016 13:00
[2016-06-16 13:18] LABS: AUTOMATED NEUTROPHIL # 6.9 TH/MM3 (1.8-7.7); BASOPHIL # 0.1 TH/MM3 (0-0.2); BASOPHIL % 0.7 % (0.0-2.0); EOSINOPHIL # 0.3 TH/MM3 (0-0.4); EOSINOPHIL % 3.1 % (0.0-4.0); HEMATOCRIT 37.5 % (39.0-51.0); HEMO FLAGS DIFF FINAL; LYMPH % 13.7 % (9.0-44.0); LYMPHOCYTE # 1.2 TH/MM3 (1.0-4.8); MEAN CELL VOLUME 86.7 FL (80.0-100.0); MEAN CORPUSCULAR HEMOGLOBIN 30.2 PG (27.0-34.0); MEAN CORPUSCULAR HGB CONC 34.8 % (32.0-36.0); MONO % 5.9 % (0.0-8.0); NEUT % 76.6 % (16.0-70.0); PLATELET COUNT 317 TH/MM3 (150-450); RED BLOOD COUNT 4.32 MIL/MM3 (4.50-5.90); RED CELL DISTRIBUTION WIDTH 13.6 % (11.6-17.2)
--- NOTE | 2016-06-16 13:26 | RADRPT ---
EXAM DATE/TIME: 06/16/2016 13:21 [facility] COMPARISON: CHEST SINGLE AP, June 12, 2016, 3:47. INDICATIONS : Syncopal episode today. Patient states dizziness and sweating. MEDICAL HISTORY : Hypertension. SURGICAL HISTORY : Pacemaker. ENCOUNTER: Initial ACUITY: 1 day PAIN SCORE: 0/10 LOCATION: Bilateral chest FINDINGS: A single view of the chest demonstrates the lungs to be symmetrically aerated without evidence of mas s, infiltrate or effusion. The cardiomediastinal contours are unremarkable. There is a pacemaker ove rlying the left chest. Osseous structures are intact. CONCLUSION: No acute disease. No significant change has occurred. Arden Yi MD on June 16, 2016 at 13:24 Board Certified Radiologist. This report was verified electronically.
[2016-06-16] MEDS ORDERED: AMLO5TAB2 GT (14:23)
[2016-06-16 14:27] LABS: APTT (PATIENT) 32.2 SEC (24.3-30.1); PROTHROMBIN TIME - PATIENT 10.7 SEC (9.8-11.6)
[2016-06-16 14:33] LABS: ANION GAP 8 MEQ/L (5-15); BLOOD UREA NITROGEN 22 MG/DL (7-18); CHLORIDE 101 MEQ/L (98-107); GLOMERULAR FILTRATION RATE 62 ML/MIN (>89); MAGNESIUM 2.4 MG/DL (1.5-2.5); POTASSIUM 4.2 MEQ/L (3.5-5.1); SODIUM (NA) 136 MEQ/L (136-145)
[2016-06-16] MEDS ORDERED: VASO10TA8 PO (14:33)
[2016-06-16] MEDS ORDERED: METO-338 GT (14:33)
[2016-06-16] MEDS ORDERED: FLUD.1 GT (14:34)
[2016-06-16 14:38] LABS: CREATINE KINASE 84 U/L (39-308)
[2016-06-16] MEDS ORDERED: ACETAMINOPHEN 650 MG/20.3 ML UDC PEG ONE (16:00)
[2016-06-16] MEDS ORDERED: ONDANSETRON HCL 4 MG/2 ML VIAL IVP PRN (16:15)
[2016-06-16] MEDS ORDERED: SODIUM CHLORIDE 0.9% FLUSH 5 ML FLUSH FLUSH PRN (16:15)
[2016-06-16] MEDS ORDERED: NALOXONE HCL 0.4 MG/ML AMP IV PRN (16:15)
--- NOTE | 2016-06-16 16:31 | PD ---
Physical Exam Date Seen by Provider: Jun 16, 2016 Time Seen by Provider: 14:00 Narrative I, Dr. Block, have reviewed the advance practice practitioner's documentation and am in agreement, met with the patient face to face, made the diagnosis, and the medical decision making was done by me. *My assessment and Findings: Patient seen and evaluated with nurse practitioner , please see nurse practitioner note for further details. Here for near syncopal episode, and has been worked up recently for syncopal episodes. He had a pacemaker placed by Dr. Davidson. Currently has no focal neurological deficits, does not appear to be in acute distress and vital signs are stable in the ER. He has no focal neurological deficits and I do not think that this is secondary to neurological process. EKG did not show any signs of changes. He has an atrial pacemaker that appears to be capturing. Laboratory Tests Test 06/16/16 06/16/16 13:00 13:50 Red Blood Count 4.32 MIL/MM3 (4.50-5.90) Hematocrit 37.5 % (39.0-51.0) Neutrophils (%) (Auto) 76.6 % (16.0-70.0) Blood Urea Nitrogen 22 MG/DL (7-18) Estimat Glomerular Filtration 62 ML/MIN (>89) Rate Random Glucose 196 MG/DL (74-106) Troponin I LESS THAN 0.02 NG/ML (0.02-0.05) Activated Partial 32.2 SEC Thromboplast Time (24.3-30.1) Last 24 hours Impressions Chest X-Ray 06/16/16 1259 Signed Impressions: Service Date/Time: Thursday, June 16, 2016 13:21 - CONCLUSION: No acute disease. No significant change has occurred. Arden Yi MD Lab work returns fairly unremarkable and the patient was discussed with Dr. Allison who is covering for Dr. Davidson. He has asked for pacemaker to be interrogated. At this point, patient is discussed and admitted with [facility] hospitalist group for further evaluation. Data Data Last Documented VS Vital Signs Date Time Temp Pulse Resp B/P Pulse Ox O2 Delivery O2 Flow Rate FiO2 06/16/16 15:00 97.8 78 16 107/66 100 Room Air Orders Electrocardiogram (06/16/16 ) Basic Metabolic Panel (Bmp) (06/16/16 12:59) B-Type Natriuretic Peptide (06/16/16 12:59) Ckmb (Isoenzyme) Profile (06/16/16 12:59) Complete Blood Count With Diff (06/16/16 12:59) Magnesium (Mg) (06/16/16 12:59) Prothrombin Time / Inr (Pt) (06/16/16 12:59) Act Partial Throm Time (Ptt) (06/16/16 12:59) Troponin I (06/16/16 12:59) Chest, Single Ap (06/16/16 12:59) Ecg Monitoring (06/16/16 12:59) Bilateral Bp Monitoring (06/16/16 12:59) Iv Access Insert/Monitor (06/16/16 12:59) Oximetry (06/16/16 12:59) Oxygen Administration (06/16/16 12:59) Sodium Chloride 0.9% Flush (Ns Flush) (06/16/16 13:00) Sodium Chlorid 0.9% 500 Ml Inj (Ns 500 M (06/16/16 13:00) Admit Order (Ed Use Only) (06/16/16 15:43) Labs Laboratory Tests Test 06/16/16 06/16/16 13:00 13:50 White Blood Count 9.0 TH/MM3 Red Blood Count 4.32 MIL/MM3 Hemoglobin 13.0 GM/DL Hematocrit 37.5 % Mean Corpuscular Volume 86.7 FL Mean Corpuscular Hemoglobin 30.2 PG Mean Corpuscular Hemoglobin 34.8 % Concent Red Cell Distribution Width 13.6 % Platelet Count 317 TH/MM3 Mean Platelet Volume 8.1 FL Neutrophils (%) (Auto) 76.6 % Lymphocytes (%) (Auto) 13.7 % Monocytes (%) (Auto) 5.9 % Eosinophils (%) (Auto) 3.1 % Basophils (%) (Auto) 0.7 % Neutrophils # (Auto) 6.9 TH/MM3 Lymphocytes # (Auto) 1.2 TH/MM3 Monocytes # (Auto) 0.5 TH/MM3 Eosinophils # (Auto) 0.3 TH/MM3 Basophils # (Auto) 0.1 TH/MM3 CBC Comment DIFF FINAL Differential Comment Sodium Level 136 MEQ/L Potassium Level 4.2 MEQ/L Chloride Level 101 MEQ/L Carbon Dioxide Level 27.0 MEQ/L Anion Gap 8 MEQ/L Blood Urea Nitrogen 22 MG/DL Creatinine 1.17 MG/DL Estimat Glomerular Filtration 62 ML/MIN Rate Random Glucose 196 MG/DL Calcium Level 8.6 MG/DL Magnesium Level 2.4 MG/DL Total Creatine Kinase 84 U/L Troponin I LESS THAN 0.02 NG/ML B-Type Natriuretic Peptide 23 PG/ML Prothrombin Time 10.7 SEC Prothromb Time International 1.0 RATIO Ratio Activated Partial 32.2 SEC Thromboplast Time MDM Medical Record Reviewed: Yes Supervised Visit with HASEEB: Yes Diagnosis Primary Impression: Near syncope Additional Impression: Status post placement of cardiac pacemaker Admitting Information Admitting Physician Requests: Admit Condition: Stable Tracie Block MD Jun 16, 2016 16:31
--- NOTE | 2016-06-16 16:44 | HHI.HP ---
HPI Service [facility] Hospitalists Primary Care Physician Unknown Admission Diagnosis Near syncope s/p pacemaker placement 06/04/2016 Diagnoses: Chief Complaint: near syncope, generalized weakness Travel History International Travel<30 Days: No Contact w/Intl Traveler <30 Da: No Traveled to Known Affected Are: No History of Present Illness This is a 70-year-old male patient with past medical history which includes oral cancer status post multiple resections, osteomyelitis, hypothyroidism, sick sinus syndrome status post pacemaker placement June 04, 2016. Patient was recently admitted to [facility] on 06/12/2016 to 06/14/16 for near syncopal episode with reports of wide-complex tachycardia on ambulance telemetry evaluated by cardiology and medical team. Started on metoprolol and Florinef [facility]. Patient reports that yesterday he had 2 episodes of feeling slightly diaphoretic with blurred vision one around 8 AM and one around 11 AM, each lasting about one hour. Patient had another episode today around 8 AM where he felt diaphoretic had blurred vision and loss of bladder control. Patient believes his blood pressure was 80/40 at that time [facility] was summoned and patient was brought to the emergency department for further evaluation and treatment. Patient denies chest pain or shortness of breath. However does report his chest felt a little different, but denies specific palpitations or pain. Patient also denies slurring of speech numbness or tingling to any of his upper or lower extremities. Patient also denies focal weakness. 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 Patient was recently admitted to [facility] on 06/12/2016 to 06/14/16 for near syncopal episode with reports of wide-complex tachycardia on ambulance telemetry evaluated by cardiology and medical team. Started on metoprolol and Florinef been [facility]. Review of Systems Other All other systems reviewed and negative except as mentioned in history of present illness. Past Family Social History Past Medical History Oral cancer status post multiple resections, osteomyelitis, hypothyroidism, sick sinus syndrome status post pacemaker placement June 04, 2016 Past Surgical History Total surgery secondary to oral cancer 4, including reconstruction with flap Left knee meniscus repair Pacemaker placement 06/04/2016 Reported Medications Fludrocortisone (Fludrocortisone Acetate) 0.1 Mg Tab 0.1 Mg GT DAILY Vasotec (Enalapril Maleate) 10 Mg Tab 10 Mg PO BID Lopressor (Metoprolol Tartrate) 100 Mg Tab 100 Mg GT BID Amlodipine (Amlodipine Besylate) 5 Mg Tab 5 Mg GT DAILY Clonazepam 1 Mg Tab 1 Mg GT BID Azelastine Nasal [place] (Azelastine HCl) 0.15% [place] 1 [place] EACH NARE BID To each nostril. Aleve (Naproxen Sodium) 220 Mg Tab 220 Mg GT DAILY PRN Sf 5000 Plus (Sodium Fluoride (Dental)) 1.1 % Cre 1 Applic GT DAILY Systane Balance [employer] Opth Drops (Propylene Glycol Opth Drops) 0.6% Soln 1 Drop EACH EYE TID PRN Levothyroxine (Levothyroxine Sodium) 75 Mcg Tab 75 Mcg GT DAILY Folic Acid 400 Mcg Tab 400 Mcg GT DAILY Bentyl (Dicyclomine HCl) 10 Mg Cap 10 Mg GT DAILY PRN Klonopin (Clonazepam) 1 Mg Tab 1 Mg GT TID PRN Centrum (Multiple Vitamins W/ Minerals) 1 Tab 1 Tab GT DAILY Azelastine Nasal [place] (Azelastine HCl) 0.15% [place] 1 [place] EACH NARE DIRECTED PRN To each nostril. Mapap (Acetaminophen) 500 Mg Tab 500 Mg GT TID PRN Allergies: Coded Allergies: Penicillin (Verified Allergy, Severe, Anaphylaxis, 06/16/16) Aztreonam (Verified Allergy, Intermediate, Rash, 06/16/16) Bactrim (Verified Allergy, Intermediate, Rash, 06/16/16) Ciprofloxacin (Verified Allergy, Intermediate, Rash, 06/16/16) Clindamycin (Verified Allergy, Intermediate, Rash, 06/16/16) Levofloxacin (Verified Allergy, Intermediate, Rash, 06/16/16) Salicylates (Verified Allergy, Intermediate, RASH , 06/16/16) Sulfa (Verified Allergy, Intermediate, RASH, 06/16/16) Active Ordered Medications Current Medications Medications (Trade) Dose Ordered Sig/Ping Route Start Time Stop Time Status Last Admin (NS Flush) 2 ml UNSCH PRN FLUSH 06/16/16 16:15 (NS Flush) 2 ml BID FLUSH 06/16/16 21:00 (Tylenol) 650 mg Q4H PRN PO 06/16/16 16:15 (Zofran Inj) 4 mg Q6H PRN IVP 06/16/16 16:15 (Narcan Inj) 0.4 mg UNSCH PRN IV 06/16/16 16:15 (Tylenol) 500 mg TID PRN PEG 06/16/16 16:30 (Florinef) 0.1 mg DAILY GT 06/17/16 09:00 (Synthroid) 75 mcg DAILY@06 GT 06/17/16 06:00 (Lopressor) 50 mg Q12HR PO 06/16/16 21:00 Family History Mother had diabetes mellitus Father secondary to CHF also had colon cancer No family history of seizures Social History Patient denies EtOH use tobacco use or illicit drug use Physical Exam Vital Signs Vital Signs Date Time Temp Pulse Resp B/P Pulse Ox O2 Delivery O2 Flow Rate FiO2 06/16/16 15:00 97.8 78 16 107/66 100 Room Air 06/16/16 13:00 17 100 Room Air 06/16/16 13:00 100 18 135/82 100 Room Air 150/75 06/16/16 13:00 17 Room Air 06/16/16 13:00 100 Room Air 06/16/16 12:52 97.8 108 17 135/82 100 Physical Exam GENERAL: This is a thin, well-developed patient, in no apparent distress. SKIN: No rashes, ecchymoses or lesions. Cool and dry. HEAD: Post original revision oral cancer resection and reconstructed flap EYES: Extraocular motions intact. No scleral icterus. No injection or drainage. CARDIOVASCULAR: Regular rate and rhythm without murmurs, gallops, or rubs. RESPIRATORY: Clear to auscultation. Breath sounds equal bilaterally. No wheezes , rales, or rhonchi. GASTROINTESTINAL: Abdomen soft, non-tender, nondistended. No hepato-splenomegaly , or palpable masses. No guarding. Feeding tube present MUSCULOSKELETAL: Extremities without clubbing, cyanosis, or edema. No joint tenderness, effusion, or edema noted. No calf tenderness. Negative Homans sign bilaterally. NEUROLOGICAL: Awake and alert. Motor and sensory grossly within normal limits. 4 out of 5 muscle strength in all muscle groups. Laboratory Laboratory Tests Test 06/16/16 06/16/16 13:00 13:50 White Blood Count 9.0 Red Blood Count 4.32 Hemoglobin 13.0 Hematocrit 37.5 Mean Corpuscular Volume 86.7 Mean Corpuscular Hemoglobin 30.2 Mean Corpuscular Hemoglobin 34.8 Concent Red Cell Distribution Width 13.6 Platelet Count 317 Mean Platelet Volume 8.1 Neutrophils (%) (Auto) 76.6 Lymphocytes (%) (Auto) 13.7 Monocytes (%) (Auto) 5.9 Eosinophils (%) (Auto) 3.1 Basophils (%) (Auto) 0.7 Neutrophils # (Auto) 6.9 Lymphocytes # (Auto) 1.2 Monocytes # (Auto) 0.5 Eosinophils # (Auto) 0.3 Basophils # (Auto) 0.1 CBC Comment DIFF FINAL Differential Comment Sodium Level 136 Potassium Level 4.2 Chloride Level 101 Carbon Dioxide Level 27.0 Anion Gap 8 Blood Urea Nitrogen 22 Creatinine 1.17 Estimat Glomerular Filtration 62 Rate Random Glucose 196 Calcium Level 8.6 Magnesium Level 2.4 Total Creatine Kinase 84 Troponin I LESS THAN 0.02 B-Type Natriuretic Peptide 23 Prothrombin Time 10.7 Prothromb Time International 1.0 Ratio Activated Partial 32.2 Thromboplast Time Result Diagram: 06/16/16 1300 06/16/16 1300 Imaging Last Impressions Chest X-Ray 06/16/16 1259 Signed Impressions: Service Date/Time: Thursday, June 16, 2016 13:21 - CONCLUSION: No acute disease. No significant change has occurred. Arden Yi MD Assessment and Plan Assessment and Plan This is a 70-year-old male patient with past medical history which includes oral cancer status post multiple resections, osteomyelitis, hypothyroidism, sick sinus syndrome status post pacemaker placement June 04, 2016. Patient reports that yesterday he had 2 episodes of feeling slightly diaphoretic with blurred vision one around 8 AM and one around 11 AM, each lasting about one hour. Patient had another episode today around 8 AM where he felt diaphoretic had blurred vision and loss of bladder control. Patient believes his blood pressure was 80/40 at that time [facility] was summoned and patient was brought to the emergency department for further evaluation and treatment. Near syncope versus seizure Head CTA done 06/14/2016 revealed no vascular abnormalities CTA of the neck done 06/14/2016 revealed no evidence of significant stenosis We'll order EEG Consult neurology Continue Florinef Decrease metoprolol to 50 mg twice a day Oral cancer status post revision Feeding tube in place Nothing by mouth by mouth 2 feeding only Patient does not like the tube feeding we have in the hospital may use his home regimen Osmolite 1.5 - calorie 6 cans a day Hypothyroidism continue home Synthroid 75 mcg daily DVT prophylaxis SCDs and SD hose Plan of care discussed with ER provider, RN patient Per patient also discussed with Patient's daughter Mali Carreon [phone] Written by Caterina Gutierrez, acting as scribe for Dr. Diaz on 06/16/16 at 17:09. Attending Statement patient was seen and examined today. 70 y/o male with recent pacemaker placement presented with recurrent syncope. had blurred vision and urinary incontinence. cardiology contacted by ER and pacemaker interrogation requested. will consult neurology. Caterina Gutierrez Jun 16, 2016 16:44 Zuhair Diaz MD Jun 16, 2016 16:47
[2016-06-16] MEDS: SODIUM CHLORIDE 0.9% FLUSH 5 ML FLUSH FLUSH SCH (20:40)
[2016-06-16] MEDS: METOPROLOL TARTRATE 50 MG TAB PO SCH (20:41)
[2016-06-16] MEDS: ACETAMINOPHEN 500 MG CPLT PEG PRN (21:15)
[2016-06-17] VITALS (12 sets, daily range): BP systolic 157–183; BP diastolic 61–94; PULSE 68–97; RESP 16–19; TEMP 96–98.2; O2SAT 96–100
--- NOTE | 2016-06-17 01:48 | HHI.PR ---
Addendum to Inpatient Note Addendum Reason: Additional Documentation Additional Information Mr. Carreon had an asymptomatic, nonsustained 16 beat run of V. tach noted on telemetry. Temperature 98.2, heart rate 81 now, blood pressure 160/86, and respiratory rate 19. Pulse oximetry is 98% on room air. We'll check stat EKG, CBC, BMP, and troponin I. Adrienne Elmore Jun 17, 2016 01:48
[2016-06-17 03:24] LABS: ANION GAP 6 MEQ/L (5-15); BICARBONATE 28.7 MEQ/L (21.0-32.0); BLOOD UREA NITROGEN 20 MG/DL (7-18); CHLORIDE 104 MEQ/L (98-107); GLOMERULAR FILTRATION RATE 77 ML/MIN (>89); SODIUM (NA) 139 MEQ/L (136-145)
[2016-06-17 03:28] LABS: AUTOMATED NEUTROPHIL # 4.5 TH/MM3 (1.8-7.7); BASOPHIL % 0.6 % (0.0-2.0); EOSINOPHIL # 0.4 TH/MM3 (0-0.4); EOSINOPHIL % 5.3 % (0.0-4.0); HEMO FLAGS DIFF FINAL; LYMPH % 21.9 % (9.0-44.0); LYMPHOCYTE # 1.5 TH/MM3 (1.0-4.8); MEAN CELL VOLUME 87.7 FL (80.0-100.0); MEAN CORPUSCULAR HEMOGLOBIN 30.4 PG (27.0-34.0); MEAN CORPUSCULAR HGB CONC 34.6 % (32.0-36.0); NEUT % 64.2 % (16.0-70.0); PLATELET COUNT 328 TH/MM3 (150-450); RED BLOOD COUNT 3.99 MIL/MM3 (4.50-5.90); RED CELL DISTRIBUTION WIDTH 13.5 % (11.6-17.2); WHITE BLOOD COUNT 7.1 TH/MM3 (4.0-11.0)
[2016-06-17] MEDS: LEVOTHYROXINE SODIUM 75 MCG TAB GT SCH (06:05)
[2016-06-17] MEDS: ACETAMINOPHEN 500 MG CPLT PEG PRN (06:10)
--- NOTE | 2016-06-17 07:38 | HHI.PR ---
Subjective Remarks resting comfortably with no distress. no chest pain, sob. d/w the RN and telemetry strips reviewed- had episode of V-tach last night. Objective Vitals Vital Signs Date Time Temp Pulse Resp B/P Pulse Ox O2 Delivery O2 Flow Rate FiO2 06/17/16 03:58 97.9 18 160/83 99 06/17/16 03:10 98 21 06/17/16 01:37 98.2 81 19 160/86 98 06/17/16 01:18 70 06/17/16 00:40 91 06/16/16 23:09 98.4 72 20 145/72 98 06/16/16 20:00 72 06/16/16 18:22 98.0 71 18 135/63 98 06/16/16 17:38 98 21 06/16/16 17:02 16 06/16/16 17:00 97.8 72 16 142/67 100 Room Air 06/16/16 15:00 97.8 78 16 107/66 100 Room Air 06/16/16 13:00 17 100 Room Air 06/16/16 13:00 100 18 135/82 100 Room Air 150/75 06/16/16 13:00 17 Room Air 06/16/16 13:00 100 Room Air 06/16/16 12:52 97.8 108 17 135/82 100 I/O 06/16/16 06/16/16 06/16/16 06/17/16 06/17/16 06/17/16 07:00 15:00 23:00 07:00 15:00 23:00 Output Total 800 ml 375 ml Balance -800 ml -375 ml Output Urine Total 800 ml 375 ml # Voids 1 # Bowel Movements 0 Result Diagram: 06/17/16 0250 06/17/16 0250 Imaging Last Impressions Chest X-Ray 06/16/16 1259 Signed Impressions: Service Date/Time: Thursday, June 16, 2016 13:21 - CONCLUSION: No acute disease. No significant change has occurred. Arden Yi MD Objective Remarks GENERAL: This is a well-nourished, well-developed patient, in no apparent distress. CARDIOVASCULAR: Regular rate and regular rhythm without murmurs, gallops, or rubs. RESPIRATORY: Clear to auscultation. Breath sounds equal bilaterally. No wheezes , rales, or rhonchi. GASTROINTESTINAL: Abdomen soft, non-tender, nondistended. Normal, active bowel sounds MUSCULOSKELETAL: Extremities without clubbing, cyanosis, or edema. NEURO: Alert & Oriented x4 to person, place, time, situation. Moves all ext x4 Procedures none Medications and IVs Current Medications IV Flush 2 ml 2 ml UNSCH PRN IVF FLUSH AFTER USING IV ACCESS Last administered on 06/16/16 14:15; Start 06/16/16 at 13:00; Stop 06/16/16 at 16:27; Status DC Sodium Chloride (NS 500 ml Inj) 500 ml @ 500 mls/hr ONCE ONCE IV Last administered on 06/16/16 13:15; Start 06/16/16 at 13:00; Stop 06/16/16 at 13:59 ; Status DC Acetaminophen (Tylenol 650 Mg/ 20 ml Liq) 650 mg ONCE ONCE PEG Last administered on 06/16/16 16:04; Start 06/16/16 at 16:00; Stop 06/16/16 at 16:01 ; Status DC IV Flush (NS Flush) 2 ml UNSCH PRN FLUSH FLUSH AFTER USING IV ACCESS; Start at 16:15 IV Flush (NS Flush) 2 ml BID FLUSH Last administered on 06/16/16 20:40; Start 06/16/16 at 21:00 Acetaminophen (Tylenol) 650 mg Q4H PRN PO TEMP > 100.4; Start 06/16/16 at 16:15 Ondansetron HCl (Zofran Inj) 4 mg Q6H PRN IVP NAUSEA OR VOMITING; Start at 16:15 Naloxone HCl (Narcan Inj) 0.4 mg UNSCH PRN IV SEE LABEL COMMENTS; Start at 16:15 Acetaminophen (Tylenol) 500 mg TID PRN PEG PAIN SCALE 1 TO 10 Last administered on 06/17/16 06:10; Start 06/16/16 at 16:30 Fludrocortisone Acetate (Florinef) 0.1 mg DAILY GT ; Start 06/17/16 at 09:00 Levothyroxine Sodium (Synthroid) 75 mcg DAILY@06 GT Last administered on 06:05; Start 06/17/16 at 06:00 Metoprolol Tartrate (Lopressor) 50 mg Q12HR PO Last administered on 06/16/16t 20:41; Start 06/16/16 at 21:00 A/P Assessment and Plan Near syncope versus seizure Head CTA done 06/14/2016 revealed no vascular abnormalities CTA of the neck done 06/14/2016 revealed no evidence of significant stenosis EEG pending Consulted neurology Continue Florinef Decreased metoprolol to 50 mg twice a day V-tach; asymptomatic- troponin and electrolytes WNL- EKG with pacer rhythm continue to monitor on telemetry- awaiting cardiology evaluation. Oral cancer status post revision Feeding tube in place Nothing by mouth by mouth 2 feeding only Patient does not like the tube feeding we have in the hospital may use his home regimen Osmolite 1.5 - calorie 6 cans a day Hypothyroidism continue home Synthroid 75 mcg daily DVT prophylaxis SCDs and SD hose Discharge Planning pending cardiology and neurology evaluation. Zuhair Diaz MD Jun 17, 2016 07:38
[2016-06-17] MEDS: METOPROLOL TARTRATE 50 MG TAB PO SCH ×2 (08:07→19:25)
[2016-06-17] MEDS: SODIUM CHLORIDE 0.9% FLUSH 5 ML FLUSH FLUSH SCH ×2 (08:07→19:25)
[2016-06-17] MEDS: FLUDROCORTISONE ACETATE 0.1 MG TAB GT SCH (08:07)
[2016-06-17] MEDS: ACETAMINOPHEN 500 MG CPLT G-TUBE PRN ×3 (12:09→23:59)
--- NOTE | 2016-06-17 13:20 | EKG ---
Date Performed: 06/17/2016 Time Performed: 02:08:20 PTAGE: 70 years EKG: ELECTRONIC ATRIAL PACEMAKER ABNORMAL RHYTHM ECG Compared to prior tracing no significant ch molly PREVIOUS TRACING : 06/16/2016 13.04 DOCTOR: Hola Rodriguez Interpretating Date/Time 06/17/2016 13:16:19
--- NOTE | 2016-06-17 13:20 | EKG ---
Date Performed: 06/16/2016 Time Performed: 13:04:14 PTAGE: 70 years EKG: ELECTRONIC ATRIAL PACEMAKER ABNORMAL RHYTHM ECG Compared to prior tracing no significant ch molly PREVIOUS TRACING : 06/12/2016 03.29 DOCTOR: Hola Rodriguez Interpretating Date/Time 06/17/2016 13:16:27
--- NOTE | 2016-06-17 15:42 | MB ---
cc: JO-ANN MCCLENDON M.D. DATE OF CONSULTATION 06/17/2016 HISTORY The patient is a 70-year-old seen in neurological consultation. He has been re-admitted to the hospital because of recurrent syncopal episodes. In the last two episodes he lost bladder. Recently with admission he was found to have some bradycardia, pacemaker was implanted. He has had several such episodes since June 01. There has been no obvious seizure activity. According to his history there was no warning symptoms but daughter tells me that the patient has had some dizziness and diaphoresis before these episodes. Recently he was started on Florinef and metoprolol. He has a history of oral cancer. CURRENT MEDICATIONS 1. Florinef. 2. Vasotec. 3. Lopressor. 4. Amlodipine. 5. Clonazepam. 6. Levothyroxine. PHYSICAL EXAMINATION GENERAL: On exam he was alert, oriented, pleasant, cooperative. NEUROLOGICAL: Mentation is appropriate. Speech is dysarthric due to his extensive left-sided oral surgeries. Ocular movements and visual bledsoe were full. Muscle strength reflexes 1+ throughout. Plantar responses flexor. IMAGING Ancillary data includes CTA done June 14 revealing no vascular abnormalities. CTA neck also done and also unremarkable. He has been followed by furniture polisher. An EEG may have been already completed and I will be reviewing these. ASSESSMENT Recurrent episodes of brief loss of consciousness, cause undetermined. In the last two episodes there has been incontinence, therefore, I offered a trial with anti epileptic medication. His daughter who happens to be neurologist and epileptologist, preferred not to put the patient on any antiepileptic at this point. She is the power of litigation attorney associate according to the patient himself. I am going to review the EEG. He is being followed by cardiology. He had a CT brain showing no acute abnormality along with the other imaging data. Thank you for asking us to assist in his care. MD ALEXIS Kolb/KK /2:39 PM /3:31 PM
[2016-06-17] MEDS ORDERED: levETIRAcetam 1000 MG INJ 100 ML IV ONE (16:00)
--- NOTE | 2016-06-17 18:28 | MG ---
cc: JO-ANN MCCLENDON M.D. Lab No: Date: 06/17/2016 Age: Sex: M Race: An EEG was obtained on this 70-year-old patient with history of a recurrent syncopal episode and incontinence, possible seizures. The EEG shows mid amplitude 8-9 per second activity in the central and posterior head regions. There are low amplitude beta rhythms centrally and frontally. The background is reactive. There is rare intermixed theta activity. The EEG at times shows a lot of muscle artifact. Photic stimulation showed some driving response bilaterally. INTERPRETATION Normal predominantly awake EEG. MD ALEXIS Kolb/AMBER /6:03 PM /6:20 PM
[2016-06-18 04:00] VITALS: BP 157/88; PULSE 93; RESP 17; TEMP 97.7; O2SAT 97
[2016-06-18] MEDS: LEVOTHYROXINE SODIUM 75 MCG TAB GT SCH (05:24)
[2016-06-18] MEDS: ACETAMINOPHEN 500 MG CPLT G-TUBE PRN ×3 (05:25→18:18)
[2016-06-18 07:39] VITALS: BP 176/90; PULSE 86; RESP 16; TEMP 97.7; O2SAT 98
--- NOTE | 2016-06-18 07:43 | HHI.PR ---
Subjective Remarks resting comfortably with no distress. no chest pain or sob. no new complaints. Objective Vitals Vital Signs Date Time Temp Pulse Resp B/P Pulse Ox O2 Delivery O2 Flow Rate FiO2 06/18/16 04:00 97.7 93 17 157/88 97 06/17/16 23:46 96.0 79 16 165/87 99 06/17/16 21:28 69 160/87 06/17/16 19:57 96.7 97 18 183/94 98 06/17/16 16:02 96.8 78 18 157/61 99 06/17/16 13:38 96.3 84 18 177/87 100 06/17/16 13:00 18 06/17/16 10:37 68 06/17/16 07:51 97.6 84 19 160/82 96 I/O 06/17/16 06/17/16 06/17/16 06/18/16 06/18/16 06/18/16 07:00 15:00 23:00 07:00 15:00 23:00 Output Total 375 ml 855.0 ml 300 ml 600 ml Balance -375 ml -855.0 ml -300 ml -600 ml Output Urine Total 375 ml 850 ml 300 ml 600 ml Tube Feeding Residual Discard 5.0 ml # Voids 2 Result Diagram: 06/17/16 0250 06/17/16 0250 Imaging Last Impressions Chest X-Ray 06/16/16 1259 Signed Impressions: Service Date/Time: Thursday, June 16, 2016 13:21 - CONCLUSION: No acute disease. No significant change has occurred. Arden Yi MD Objective Remarks GENERAL: This is a well-nourished, well-developed patient, in no apparent distress. CARDIOVASCULAR: Regular rate and regular rhythm without murmurs, gallops, or rubs. RESPIRATORY: Clear to auscultation. Breath sounds equal bilaterally. No wheezes , rales, or rhonchi. GASTROINTESTINAL: Abdomen soft, non-tender, nondistended. Normal, active bowel sounds MUSCULOSKELETAL: Extremities without clubbing, cyanosis, or edema. NEURO: Alert & Oriented x4 to person, place, time, situation. Moves all ext x4 Procedures none Medications and IVs Current Medications IV Flush 2 ml 2 ml UNSCH PRN IVF FLUSH AFTER USING IV ACCESS Last administered on 06/16/16 14:15; Start 06/16/16 at 13:00; Stop 06/16/16 at 16:27; Status DC Sodium Chloride (NS 500 ml Inj) 500 ml @ 500 mls/hr ONCE ONCE IV Last administered on 06/16/16 13:15; Start 06/16/16 at 13:00; Stop 06/16/16 at 13:59 ; Status DC Acetaminophen (Tylenol 650 Mg/ 20 ml Liq) 650 mg ONCE ONCE PEG Last administered on 06/16/16 16:04; Start 06/16/16 at 16:00; Stop 06/16/16 at 16:01 ; Status DC IV Flush (NS Flush) 2 ml UNSCH PRN FLUSH FLUSH AFTER USING IV ACCESS; Start at 16:15 IV Flush (NS Flush) 2 ml BID FLUSH Last administered on 06/17/16 19:25; Start 06/16/16 at 21:00 Acetaminophen (Tylenol) 650 mg Q4H PRN PO TEMP > 100.4; Start 06/16/16 at 16:15 Ondansetron HCl (Zofran Inj) 4 mg Q6H PRN IVP NAUSEA OR VOMITING; Start at 16:15 Naloxone HCl (Narcan Inj) 0.4 mg UNSCH PRN IV SEE LABEL COMMENTS; Start at 16:15 Acetaminophen (Tylenol) 500 mg TID PRN PEG PAIN SCALE 1 TO 10 Last administered on 06/17/16 06:10; Start 06/16/16 at 16:30; Stop 06/17/16 at 09:36 ; Status DC Fludrocortisone Acetate (Florinef) 0.1 mg DAILY GT Last administered on 08:07; Start 06/17/16 at 09:00 Levothyroxine Sodium (Synthroid) 75 mcg DAILY@06 GT Last administered on 05:24; Start 06/17/16 at 06:00 Metoprolol Tartrate (Lopressor) 50 mg Q12HR PO Last administered on 06/17/16 19:25; Start 06/16/16 at 21:00 Acetaminophen 500 mg 500 mg Q4H PRN G-TUBE PAIN SCALE 1 TO 10 Last administered on 1/30/17at 05:25; Start 06/17/16 at 10:00 Levetriacetam (Keppra 1000 Mg Inj) 100 ml @ 400 mls/hr ONCE ONCE IV ; Start at 16:00; Stop 06/17/16 at 16:14; Status Cancel A/P Assessment and Plan Near syncope versus seizure- likely due to hypotensive episodes Head CTA done 06/14/2016 revealed no vascular abnormalities CTA of the neck done 06/14/2016 revealed no evidence of significant stenosis EEG normal. neurology consult appreciated- Continue Florinef Decreased metoprolol to 50 mg twice a day stop lisinopril and amlodipine V-tach; asymptomatic- troponin and electrolytes WNL- EKG with pacer rhythm continue to monitor on telemetry- awaiting cardiology evaluation. Oral cancer status post revision Feeding tube in place 2 feeding only Patient does not like the tube feeding we have in the hospital may use his home regimen Osmolite 1.5 - calorie 6 cans a day Hypothyroidism continue home Synthroid 75 mcg daily DVT prophylaxis SCDs and SD hose Discharge Planning likely dc to rehab later today after seen by cardiology. see med list. f/u; pcp and cardiology. d/w the patient, RN and his daughter at the bedside. time spent 31 min. Zuhair Diaz MD Jun 18, 2016 07:43
[2016-06-18] MEDS ORDERED: CLON1 GT (07:44)
[2016-06-18] MEDS ORDERED: CLON1TAB GT (07:44)
--- NOTE | 2016-06-18 07:45 | HHI.DCPOC ---
Discharge Care Plan Diagnosis: (1) Near syncope Additional Problems passing out. Goals to Promote Your Health * To prevent worsening of your condition and complications * To maintain your health at the optimal level Directions to Meet Your Goals Take your medications as prescribed Follow your dietary instruction Follow activity as directed Keep your appointments as scheduled Take your immunizations and boosters as scheduled If your symptoms worsen call your PCP, if no PCP go to Urgent Care Center or Emergency Room Smoking is Dangerous to Your Health. Avoid second hand smoke Call the 24-hour hour crisis hotline for domestic abuse at Zuhair Diaz MD Jun 18, 2016 07:45
--- NOTE | 2016-06-18 07:46 | HHI.DS ---
Discharge Summary Admission Date Jun 16, 2016 at 15:45 Discharge Date: Jun 19, 2016 Admitting Diagnosis Near syncope s/p pacemaker placement 06/04/2016 (1) Near syncope ICD Code: R55 Diagnosis: Principal Procedures none Brief History - From Admission This is a 70-year-old male patient with past medical history which includes oral cancer status post multiple resections, osteomyelitis, hypothyroidism, sick sinus syndrome status post pacemaker placement June 04, 2016. Patient was recently admitted to [facility] on 06/12/2016 to 06/14/16 for near syncopal episode with reports of wide-complex tachycardia on ambulance telemetry evaluated by cardiology and medical team. Started on metoprolol and Florinef been discharged back to shelter facility. Patient reports that yesterday he had 2 episodes of feeling slightly diaphoretic with blurred vision one around 8 AM and one around 11 AM, each lasting about one hour. Patient had another episode today around 8 AM where he felt diaphoretic had blurred vision and loss of bladder control. Patient believes his blood pressure was 80/40 at that time [facility] was summoned and patient was brought to the emergency department for further evaluation and treatment. Patient denies chest pain or shortness of breath. However does report his chest felt a little different, but denies specific palpitations or pain. Patient also denies slurring of speech numbness or tingling to any of his upper or lower extremities. Patient also denies focal weakness. 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 Patient was recently admitted to [facility] on 06/12/2016 to 06/14/16 for near syncopal episode with reports of wide-complex tachycardia on ambulance telemetry evaluated by cardiology and medical team. Started on metoprolol and Florinef been discharged back to shelter facility. CBC/BMP: 06/17/16 0250 06/17/16 0250 Significant Findings Laboratory Tests Test 06/16/16 06/16/16 06/17/16 13:00 13:50 02:50 Red Blood Count 4.32 MIL/MM3 3.99 MIL/MM3 (4.50-5.90) (4.50-5.90) Hematocrit 37.5 % 35.0 % (39.0-51.0) (39.0-51.0) Neutrophils (%) (Auto) 76.6 % (16.0-70.0) Blood Urea Nitrogen 22 MG/DL (7-18) 20 MG/DL (7-18) Estimat Glomerular Filtration 62 ML/MIN (>89) 77 ML/MIN (>89) Rate Random Glucose 196 MG/DL (74-106) Troponin I LESS THAN 0.02 LESS THAN 0.02 NG/ML NG/ML (0.02-0.05) (0.02-0.05) Activated Partial 32.2 SEC Thromboplast Time (24.3-30.1) Hemoglobin 12.1 GM/DL (13.0-17.0) Eosinophils (%) (Auto) 5.3 % (0.0-4.0) Imaging Last Impressions Chest X-Ray 06/16/16 1259 Signed Impressions: Service Date/Time: Thursday, June 16, 2016 13:21 - CONCLUSION: No acute disease. No significant change has occurred. Arden Yi MD PE at Discharge GENERAL: This is a well-nourished, well-developed patient, in no apparent distress. CARDIOVASCULAR: Regular rate and regular rhythm without murmurs, gallops, or rubs. RESPIRATORY: Clear to auscultation. Breath sounds equal bilaterally. No wheezes , rales, or rhonchi. GASTROINTESTINAL: Abdomen soft, non-tender, nondistended. Normal, active bowel sounds MUSCULOSKELETAL: Extremities without clubbing, cyanosis, or edema. NEURO: Alert & Oriented x4 to person, place, time, situation. Moves all ext x4 Hospital Course Near syncope versus seizure- likely due to hypotensive episodes Head CTA done 06/14/2016 revealed no vascular abnormalities CTA of the neck done 06/14/2016 revealed no evidence of significant stenosis EEG normal. neurology consult appreciated- Continue Florinef Decreased metoprolol to 50 mg twice a day stop lisinopril and amlodipine V-tach; asymptomatic- troponin and electrolytes WNL- EKG with pacer rhythm continue to monitor on telemetry- awaiting cardiology evaluation. Oral cancer status post revision Feeding tube in place 2 feeding only Patient does not like the tube feeding we have in the hospital may use his home regimen Osmolite 1.5 - calorie 6 cans a day Hypothyroidism continue home Synthroid 75 mcg daily DVT prophylaxis SCDs and SD schultz Pt Condition on Discharge: Good Discharge Disposition: Discharge to SNF Discharge Time: > 30 minutes Discharge Instructions DIET: Follow Instructions for: Heart Healthy Diet Activities you can perform: Regular-No Restrictions Follow up Referrals: Cardiology PCP Follow-up New Medications: Metoprolol Tartrate (Lopressor) 50 Mg Tab 50 MG PO Q12HR hypertension Days 30 Ref 0 TAB Continued Medications: Acetaminophen (Mapap) 500 Mg Tab 500 MG GT TID PRN PAIN Ref 0 TAB Azelastine Nasal Boyd (Azelastine Nasal Boyd) 0.15% Boyd 1 SPRAY EACH NARE DIRECTED To each nostril. PRN ALLERGIES #1 Ref 0 BOTTLE Azelastine Nasal Boyd (Azelastine Nasal Boyd) 0.15% Boyd 1 SPRAY EACH NARE BID To each nostril. Allergies #1 Ref 0 BOTTLE Clonazepam (Klonopin) 1 Mg Tab 1 MG GT TID PRN ANXIETY AND/OR AGITATION #20 Ref 0 TAB (This prescription has been renewed) Clonazepam (Clonazepam) 1 Mg Tab 1 MG GT BID anxiety #60 Ref 0 TAB (This prescription has been renewed) Dicyclomine (Bentyl) 10 Mg Cap 10 MG GT DAILY PRN SPASM Ref 0 CAP Fludrocortisone (Fludrocortisone) 0.1 Mg Tab 0.1 MG GT DAILY #30 Ref 0 TAB Folic Acid (Folic Acid) 400 Mcg Tab 400 MCG GT DAILY Nutritional Supplement Ref 0 TAB Levothyroxine (Levothyroxine) 75 Mcg Tab 75 MCG GT DAILY Thyroid #30 Ref 0 TAB Multiple Vitamins W/ Minerals (Centrum) 1 Tab 1 TAB GT DAILY Nutritional Supplement Ref 0 TAB Propylene Glycol Opth Drops (Systane Balance Hinduism Opth Drops) 0.6% Soln 1 DROP EACH EYE TID PRN DRY EYE Ref 0 BOTTLE Sodium Fluoride (Dental) (Sf 5000 Plus) 1.1 % Cre 1 APPLIC GT DAILY Discontinued Medications: Amlodipine (Amlodipine) 5 Mg Tab 5 MG GT DAILY Blood Pressure Management #30 Ref 0 TAB Enalapril (Vasotec) 10 Mg Tab 10 MG PO BID #60 Ref 0 TAB Metoprolol Tartrate (Lopressor) 100 Mg Tab 100 MG GT BID #60 Ref 0 TAB Naproxen Sodium (Aleve) 220 Mg Tab 220 MG GT DAILY PRN Pain Management Ref 0 TAB Zuhair Diaz MD Jun 18, 2016 07:45
[2016-06-18] MEDS: SODIUM CHLORIDE 0.9% FLUSH 5 ML FLUSH FLUSH SCH ×2 (08:03→21:51)
[2016-06-18] MEDS: FLUDROCORTISONE ACETATE 0.1 MG TAB GT SCH (08:03)
[2016-06-18] MEDS: METOPROLOL TARTRATE 50 MG TAB PO SCH ×2 (08:03→21:52)
--- NOTE | 2016-06-18 08:22 | PD.CARD.PN ---
Subjective Subjective Remarks Dizzy at present. Mildly nauseated. No vomiting, abdominal or chest pain, dyspnea. Objective Medications Item Value Date Time Fludrocortisone 0.1 mg 06/17/16 0900 Acetate DAILY/GT 06/18/16 0803 (Florinef) Metoprolol 50 mg 06/16/16 2100 Tartrate Q12HR/PO 06/18/16 0803 (Lopressor) Vital Signs / I&O Vital Signs Date Time Temp Pulse Resp B/P Pulse Ox O2 Delivery O2 Flow Rate FiO2 06/18/16 07:39 97.7 86 16 176/90 98 06/18/16 04:00 97.7 93 17 157/88 97 06/17/16 23:46 96.0 79 16 165/87 99 06/17/16 21:28 69 160/87 06/17/16 19:57 96.7 97 18 183/94 98 06/17/16 16:02 96.8 78 18 157/61 99 06/17/16 13:38 96.3 84 18 177/87 100 06/17/16 13:00 18 06/17/16 10:37 68 I/O 06/17/16 06/17/16 06/17/16 06/18/16 06/18/16 06/18/16 07:00 15:00 23:00 07:00 15:00 23:00 Output Total 375 ml 855.0 ml 300 ml 600 ml Balance -375 ml -855.0 ml -300 ml -600 ml Output Urine Total 375 ml 850 ml 300 ml 600 ml Tube Feeding Residual Discard 5.0 ml # Voids 2 Physical Exam GENERAL: Well developed, well nourished. No acute distress. HEENT: Jugular venous pressure is normal. CHEST: Lungs clear to auscultation bilaterally. Unlabored respiratory effort. CARDIAC: Regular rate and rhythm without S3, S4, or murmur. ABDOMEN: Soft, nontender, no hepatosplenomegaly. Bowel sounds present. EXTREMITIES: No clubbing, cyanosis, or edema. Assessment and Plan Problem List: (1) Dizziness Assessment and Plan: Recurrent dizziness this morning unclear etiology. No arrhythmias correlate to his symptoms. He has rare short-lived SVT, none of which has occurred with near syncopal or syncopal episodes. He is "dizzy" at present with normal HR and BP 170/90. No other suggestions at this point except terminal gauger better BP control. Consider resuming amlodipine and increasing metoprolol. (2) Paroxysmal supraventricular tachycardia Assessment and Plan: One episode SVT, not VT, since last discharge, this time lasting only 92 seconds. Rec continue metoprolol. Patient without any symptoms attributable to the SVT. (3) Status post placement of cardiac pacemaker (4) Hypertension Assessment and Plan: Suboptimal BP's. Rec consider resuming amlodipine, increasing metoprolol. Code Status full code Discussed Condition With patient Problem Qualifiers (1) Hypertension: Qualified Code: I10 - Essential hypertension River Davidson MD Jun 18, 2016 08:22
[2016-06-18 11:24] VITALS: BP 141/81; PULSE 95; RESP 17; TEMP 98.3; O2SAT 100
--- NOTE | 2016-06-18 11:42 | HHI.PR ---
Addendum To [facility] Progress Not Reason for addendum: Additonal documentation (patient reported dizziness. came back to see the patient again; now looks comfortable and feeling better- will obseve one more night- if stable will dc to rehab in am.) Zuhair Diaz MD Jun 18, 2016 11:42
[2016-06-18 15:35] VITALS: BP 150/71; PULSE 71; RESP 20; TEMP 97.5; O2SAT 100
[2016-06-18 20:00] VITALS: PULSE 73
[2016-06-18 20:20] VITALS: BP 171/81; PULSE 74; RESP 18; TEMP 98.2; O2SAT 99
[2016-06-18] MEDS: ACETAMINOPHEN 325 MG TAB PO PRN (22:41)
[2016-06-19] VITALS (7 sets, daily range): BP systolic 143–180; BP diastolic 77–90; PULSE 64–116; RESP 13–18; TEMP 97–98.9; O2SAT 95–99
[2016-06-19] MEDS: ACETAMINOPHEN 325 MG TAB PO PRN (06:13)
[2016-06-19] MEDS: LEVOTHYROXINE SODIUM 75 MCG TAB GT SCH (06:13)
--- NOTE | 2016-06-19 07:43 | HHI.PR ---
Subjective Remarks resting comfortably with no distress. no chest pain, sob or dizziness. d/w the RN and no acute issues over night. Objective Vitals Vital Signs Date Time Temp Pulse Resp B/P Pulse Ox O2 Delivery O2 Flow Rate FiO2 06/19/16 06:08 98.9 82 13 143/79 98 06/19/16 00:05 98.2 71 16 170/86 99 06/18/16 23:45 20 06/18/16 20:20 98.2 74 18 171/81 99 06/18/16 20:00 73 06/18/16 15:35 97.5 71 20 150/71 100 06/18/16 11:24 98.3 95 17 141/81 100 I/O 06/18/16 06/18/16 06/18/16 06/19/16 06/19/16 06/19/16 07:00 15:00 23:00 07:00 15:00 23:00 Output Total 600 ml 700 ml Balance -600 ml -700 ml Output Urine Total 600 ml 700 ml # Bowel Movements 1 Result Diagram: 06/17/16 0250 06/17/16 0250 Imaging Last Impressions Chest X-Ray 06/16/16 1259 Signed Impressions: Service Date/Time: Thursday, June 16, 2016 13:21 - CONCLUSION: No acute disease. No significant change has occurred. Arden Yi MD Objective Remarks GENERAL: This is a well-nourished, well-developed patient, in no apparent distress. CARDIOVASCULAR: Regular rate and regular rhythm without murmurs, gallops, or rubs. RESPIRATORY: Clear to auscultation. Breath sounds equal bilaterally. No wheezes , rales, or rhonchi. GASTROINTESTINAL: Abdomen soft, non-tender, nondistended. Normal, active bowel sounds MUSCULOSKELETAL: Extremities without clubbing, cyanosis, or edema. NEURO: Alert & Oriented x4 to person, place, time, situation. Moves all ext x4 Procedures none Medications and IVs Current Medications IV Flush 2 ml 2 ml UNSCH PRN IVF FLUSH AFTER USING IV ACCESS Last administered on 06/16/16t 14:15; Start 06/16/16 at 13:00; Stop 06/16/16 at 16:27; Status DC Sodium Chloride (NS 500 ml Inj) 500 ml @ 500 mls/hr ONCE ONCE IV Last administered on 06/16/16 13:15; Start 06/16/16 at 13:00; Stop 06/16/16 at 13:59 ; Status DC Acetaminophen (Tylenol 650 Mg/ 20 ml Liq) 650 mg ONCE ONCE PEG Last administered on 06/16/16 16:04; Start 06/16/16 at 16:00; Stop 06/16/16 at 16:01 ; Status DC IV Flush (NS Flush) 2 ml UNSCH PRN FLUSH FLUSH AFTER USING IV ACCESS; Start at 16:15 IV Flush (NS Flush) 2 ml BID FLUSH Last administered on 06/18/16 21:51; Start 06/16/16 at 21:00 Acetaminophen (Tylenol) 650 mg Q4H PRN PO TEMP > 100.4 Last administered on 06:13; Start 06/16/16 at 16:15 Ondansetron HCl (Zofran Inj) 4 mg Q6H PRN IVP NAUSEA OR VOMITING; Start at 16:15 Naloxone HCl (Narcan Inj) 0.4 mg UNSCH PRN IV SEE LABEL COMMENTS; Start at 16:15 Acetaminophen (Tylenol) 500 mg TID PRN PEG PAIN SCALE 1 TO 10 Last administered on 06/17/16 06:10; Start 06/16/16 at 16:30; Stop 06/17/16 at 09:36 ; Status DC Fludrocortisone Acetate (Florinef) 0.1 mg DAILY GT Last administered on 08:03; Start 06/17/16 at 09:00 Levothyroxine Sodium (Synthroid) 75 mcg DAILY@06 GT Last administered on 06:13; Start 06/17/16 at 06:00 Metoprolol Tartrate (Lopressor) 50 mg Q12HR PO Last administered on 06/18/16 21:52; Start 06/16/16 at 21:00 Acetaminophen 500 mg 500 mg Q4H PRN G-TUBE PAIN SCALE 1 TO 10 Last administered on 06/18/16 18:18; Start 06/17/16 at 10:00 Levetriacetam (Keppra 1000 Mg Inj) 100 ml @ 400 mls/hr ONCE ONCE IV ; Start at 16:00; Stop 06/17/16 at 16:14; Status Cancel A/P Assessment and Plan Near syncope versus seizure- likely due to hypotensive episodes Head CTA done 06/14/2016 revealed no vascular abnormalities CTA of the neck done 06/14/2016 revealed no evidence of significant stenosis EEG normal. neurology consult appreciated- Continue Florinef Decreased metoprolol to 50 mg twice a day stop lisinopril and amlodipine cardiology evaluation appreciated; recommended increasing lopressor and adding amlodipine; this was d/w the daughter who's a neurologist and POA; she wanted him to stay on the current disage of lopressor only at this time. Oral cancer status post revision Feeding tube in place 2 feeding only Patient does not like the tube feeding we have in the hospital may use his home regimen Osmolite 1.5 - calorie 6 cans a day Hypothyroidism continue home Synthroid 75 mcg daily DVT prophylaxis SCDs and SD hose Discharge Planning likely dc to rehab later today if stable. see med list. f/u; pcp and cardiology. d/w the patient, RN . d/w the daughter again today. time spent 31 min. Zuhair Diaz MD Jun 19, 2016 07:42
[2016-06-19] MEDS: METOPROLOL TARTRATE 50 MG TAB PO SCH ×3 (09:18→22:32)
[2016-06-19] MEDS: FLUDROCORTISONE ACETATE 0.1 MG TAB GT SCH (09:19)
[2016-06-19] MEDS: SODIUM CHLORIDE 0.9% FLUSH 5 ML FLUSH FLUSH SCH ×2 (09:19→22:33)
--- NOTE | 2016-06-19 12:19 | HHI.PR ---
Addendum To [facility] Progress Not Reason for addendum: Additonal documentation (patient had an episode of SVT earlier today; felt dizzy and sweaty; d/w the patient, her son and also RN; will increase lopressor and continue to monitor. not ready for discharge today.) Zuhair Diaz MD Jun 19, 2016 12:19
[2016-06-19] MEDS: ACETAMINOPHEN 500 MG CPLT G-TUBE PRN ×2 (15:01→22:33)
[2016-06-20] VITALS (9 sets, daily range): BP systolic 137–217; BP diastolic 79–110; PULSE 64–84; RESP 16–20; TEMP 97–97.6; O2SAT 96–100
[2016-06-20] MEDS: METOPROLOL TARTRATE 50 MG TAB PO SCH ×3 (06:06→21:15)
[2016-06-20] MEDS: LEVOTHYROXINE SODIUM 75 MCG TAB GT SCH (06:06)
[2016-06-20] MEDS: ACETAMINOPHEN 500 MG CPLT G-TUBE PRN ×3 (06:09→19:48)
[2016-06-20] MEDS: FLUDROCORTISONE ACETATE 0.1 MG TAB GT SCH (09:57)
[2016-06-20] MEDS: SODIUM CHLORIDE 0.9% FLUSH 5 ML FLUSH FLUSH SCH ×2 (09:59→19:49)
--- NOTE | 2016-06-20 11:13 | HHI.PR ---
Subjective Remarks he says that earlier this morning he felt slightly lightheaded. no sob. noted the elevated BP earlier this morning. d/w the RN . Objective Vitals Vital Signs Date Time Temp Pulse Resp B/P Pulse Ox O2 Delivery O2 Flow Rate FiO2 06/20/16 09:19 80 165/84 06/20/16 07:48 97.0 79 18 217/110 96 06/20/16 03:43 97.6 79 16 155/79 99 06/20/16 00:05 77 06/19/16 23:31 97.8 70 18 180/86 99 06/19/16 16:09 116 18 156/90 95 06/19/16 11:54 71 18 149/77 96 Result Diagram: 06/17/16 0250 06/17/16 0250 Objective Remarks GENERAL: This is a well-nourished, well-developed patient, in no apparent distress. CARDIOVASCULAR: Regular rate and regular rhythm without murmurs, gallops, or rubs. RESPIRATORY: Clear to auscultation. Breath sounds equal bilaterally. No wheezes , rales, or rhonchi. GASTROINTESTINAL: Abdomen soft, non-tender, nondistended. Normal, active bowel sounds MUSCULOSKELETAL: Extremities without clubbing, cyanosis, or edema. NEURO: Alert & Oriented x4 to person, place, time, situation. Moves all ext x4 Procedures none Medications and IVs Current Medications IV Flush 2 ml 2 ml UNSCH PRN IVF FLUSH AFTER USING IV ACCESS Last administered on 06/16/16 14:15; Start 06/16/16 at 13:00; Stop 06/16/16 at 16:27; Status DC Sodium Chloride (NS 500 ml Inj) 500 ml @ 500 mls/hr ONCE ONCE IV Last administered on 06/16/16 13:15; Start 06/16/16 at 13:00; Stop 06/16/16 at 13:59 ; Status DC Acetaminophen (Tylenol 650 Mg/ 20 ml Liq) 650 mg ONCE ONCE PEG Last administered on 06/16/16 16:04; Start 06/16/16 at 16:00; Stop 06/16/16 at 16:01 ; Status DC IV Flush (NS Flush) 2 ml UNSCH PRN FLUSH FLUSH AFTER USING IV ACCESS; Start at 16:15 IV Flush (NS Flush) 2 ml BID FLUSH Last administered on 06/20/16 09:59; Start 06/16/16 at 21:00 Acetaminophen (Tylenol) 650 mg Q4H PRN PO TEMP > 100.4 Last administered on 06:13; Start 06/16/16 at 16:15 Ondansetron HCl (Zofran Inj) 4 mg Q6H PRN IVP NAUSEA OR VOMITING; Start at 16:15 Naloxone HCl (Narcan Inj) 0.4 mg UNSCH PRN IV SEE LABEL COMMENTS; Start at 16:15 Acetaminophen (Tylenol) 500 mg TID PRN PEG PAIN SCALE 1 TO 10 Last administered on 06/17/16 06:10; Start 06/16/16 at 16:30; Stop 06/17/16 at 09:36 ; Status DC Fludrocortisone Acetate (Florinef) 0.1 mg DAILY GT Last administered on 09:57; Start 06/17/16 at 09:00 Levothyroxine Sodium (Synthroid) 75 mcg DAILY@06 GT Last administered on 06:06; Start 06/17/16 at 06:00 Metoprolol Tartrate (Lopressor) 50 mg Q12HR PO Last administered on 06/19/16 09:18; Start 06/16/16 at 21:00; Stop 06/19/16 at 12:20; Status DC Acetaminophen 500 mg 500 mg Q4H PRN G-TUBE PAIN SCALE 1 TO 10 Last administered on 06/20/16 09:58; Start 06/17/16 at 10:00 Levetriacetam (Keppra 1000 Mg Inj) 100 ml @ 400 mls/hr ONCE ONCE IV ; Start at 16:00; Stop 06/17/16 at 16:14; Status Cancel Metoprolol Tartrate (Lopressor) 50 mg Q8HR PO Last administered on 06/20/16 06: 06; Start 06/19/16 at 14:00 A/P Assessment and Plan Near syncope versus seizure- likely due to hypotensive episodes Head CTA done 06/14/2016 revealed no vascular abnormalities CTA of the neck done 06/14/2016 revealed no evidence of significant stenosis EEG normal. neurology consult appreciated- Continue Florinef increased metoprolol to 50 mg three times daily. stop lisinopril;will consider adding amlodipine if BP remains elevated. cardiology evaluation appreciated; recommended increasing lopressor and adding amlodipine; this was d/w the daughter who's a neurologist and POA; she wanted him to stay on lopressor only at this time. Oral cancer status post revision Feeding tube in place 2 feeding only Patient does not like the tube feeding we have in the hospital may use his home regimen Osmolite 1.5 - calorie 6 cans a day Hypothyroidism continue home Synthroid 75 mcg daily DVT prophylaxis SCDs and SD schultz Discharge Planning dc to rehab in am if stable. Zuhair Diaz MD Jun 20, 2016 11:13
[2016-06-21] MEDS: ACETAMINOPHEN 500 MG CPLT G-TUBE PRN ×3 (04:25→14:08)
[2016-06-21 04:36] VITALS: BP 172/85; PULSE 79; RESP 20; TEMP 97.5; O2SAT 99
[2016-06-21] MEDS: METOPROLOL TARTRATE 50 MG TAB PO SCH ×3 (05:21→21:14)
[2016-06-21] MEDS: LEVOTHYROXINE SODIUM 75 MCG TAB GT SCH (05:21)
[2016-06-21 08:00] VITALS: BP 153/80; PULSE 64; PULSE 78; RESP 18; TEMP 97.1; O2SAT 98
[2016-06-21] MEDS: SODIUM CHLORIDE 0.9% FLUSH 5 ML FLUSH FLUSH SCH ×2 (09:07→21:15)
[2016-06-21] MEDS: FLUDROCORTISONE ACETATE 0.1 MG TAB GT SCH (09:07)
--- NOTE | 2016-06-21 10:56 | HHI.PR ---
Subjective Remarks had one more episode of dizziness this morning. he says that he felt dizzy last night as well. Objective Vitals Vital Signs Date Time Temp Pulse Resp B/P Pulse Ox O2 Delivery O2 Flow Rate FiO2 06/21/16 08:00 97.1 64 18 153/80 98 06/21/16 05:22 12 06/21/16 04:36 97.5 79 20 172/85 99 06/20/16 21:39 97.6 80 20 149/80 98 06/20/16 20:00 64 06/20/16 15:45 97.3 76 18 166/87 97 06/20/16 11:31 97.0 84 18 137/80 100 I/O 06/20/16 06/20/16 06/20/16 06/21/16 06/21/16 06/21/16 07:00 15:00 23:00 07:00 15:00 23:00 Output Total 400 ml 600 ml Balance -400 ml -600 ml Output Urine Total 400 ml 600 ml Result Diagram: 06/17/16 0250 06/17/16 0250 Imaging Last Impressions Chest X-Ray 06/16/16 1259 Signed Impressions: Service Date/Time: Thursday, June 16, 2016 13:21 - CONCLUSION: No acute disease. No significant change has occurred. Arden Yi MD Objective Remarks GENERAL: This is a well-nourished, well-developed patient, in no apparent distress. CARDIOVASCULAR: Regular rate and regular rhythm without murmurs, gallops, or rubs. RESPIRATORY: Clear to auscultation. Breath sounds equal bilaterally. No wheezes , rales, or rhonchi. GASTROINTESTINAL: Abdomen soft, non-tender, nondistended. Normal, active bowel sounds MUSCULOSKELETAL: Extremities without clubbing, cyanosis, or edema. NEURO: Alert & Oriented x4 to person, place, time, situation. Moves all ext x4 Procedures none Medications and IVs Current Medications IV Flush 2 ml 2 ml UNSCH PRN IVF FLUSH AFTER USING IV ACCESS Last administered on 06/16/16 14:15; Start 06/16/16 at 13:00; Stop 06/16/16 at 16:27; Status DC Sodium Chloride (NS 500 ml Inj) 500 ml @ 500 mls/hr ONCE ONCE IV Last administered on 06/16/16 13:15; Start 06/16/16 at 13:00; Stop 06/16/16 at 13:59 ; Status DC Acetaminophen (Tylenol 650 Mg/ 20 ml Liq) 650 mg ONCE ONCE PEG Last administered on 06/16/16 16:04; Start 06/16/16 at 16:00; Stop 06/16/16 at 16:01 ; Status DC IV Flush (NS Flush) 2 ml UNSCH PRN FLUSH FLUSH AFTER USING IV ACCESS; Start at 16:15 IV Flush (NS Flush) 2 ml BID FLUSH Last administered on 06/21/16 09:07; Start 06/16/16 at 21:00 Acetaminophen (Tylenol) 650 mg Q4H PRN PO TEMP > 100.4 Last administered on 06:13; Start 06/16/16 at 16:15 Ondansetron HCl (Zofran Inj) 4 mg Q6H PRN IVP NAUSEA OR VOMITING; Start at 16:15 Naloxone HCl (Narcan Inj) 0.4 mg UNSCH PRN IV SEE LABEL COMMENTS; Start at 16:15 Acetaminophen (Tylenol) 500 mg TID PRN PEG PAIN SCALE 1 TO 10 Last administered on 06/17/16 06:10; Start 06/16/16 at 16:30; Stop 06/17/16 at 09:36 ; Status DC Fludrocortisone Acetate (Florinef) 0.1 mg DAILY GT Last administered on 09:07; Start 06/17/16 at 09:00 Levothyroxine Sodium (Synthroid) 75 mcg DAILY@06 GT Last administered on 05:21; Start 06/17/16 at 06:00 Metoprolol Tartrate (Lopressor) 50 mg Q12HR PO Last administered on 06/19/16 09:18; Start 06/16/16 at 21:00; Stop 06/19/16 at 12:20; Status DC Acetaminophen 500 mg 500 mg Q4H PRN G-TUBE PAIN SCALE 1 TO 10 Last administered on 06/21/16 09:07; Start 06/17/16 at 10:00 Levetriacetam (Keppra 1000 Mg Inj) 100 ml @ 400 mls/hr ONCE ONCE IV ; Start at 16:00; Stop 06/17/16 at 16:14; Status Cancel Metoprolol Tartrate (Lopressor) 50 mg Q8HR PO Last administered on 06/21/16t 05: 21; Start 06/19/16 at 14:00 A/P Assessment and Plan Near syncope -with recurrent hypotensive episodes and questionable bradycardia last night- Head CTA done 06/14/2016 revealed no vascular abnormalities CTA of the neck done 06/14/2016 revealed no evidence of significant stenosis EEG normal. neurology consult appreciated- Continue Florinef increased metoprolol to 50 mg three times daily. stop lisinopril;will consider adding amlodipine if BP remains elevated. cardiology evaluation appreciated; recommended increasing lopressor and adding amlodipine; this was d/w the daughter who's a neurologist and POA; she wanted him to stay on lopressor only at this time. Oral cancer status post revision Feeding tube in place 2 feeding only Patient does not like the tube feeding we have in the hospital may use his home regimen Osmolite 1.5 - calorie 6 cans a day Hypothyroidism continue home Synthroid 75 mcg daily DVT prophylaxis SCDs and SD hose Discharge Planning awaiting cardiology recommendations- left a message for . Zuhair Diaz MD Jun 21, 2016 10:56
[2016-06-21 12:00] VITALS: BP 148/78; PULSE 64; RESP 20; TEMP 97.6; O2SAT 99
--- NOTE | 2016-06-21 14:07 | PD.CARD.PN ---
Subjective Subjective Remarks Brief dizziness twice this morning, relief with lying down. No syncope, palpitations, nausea. Objective Medications Item Value Date Time Metoprolol 50 mg 06/19/16 1400 Tartrate Q8HR/PO 06/21/16 0521 (Lopressor) Fludrocortisone 0.1 mg 06/17/16 0900 Acetate DAILY/GT 06/21/16 0907 (Florinef) Vital Signs / I&O Vital Signs Date Time Temp Pulse Resp B/P Pulse Ox O2 Delivery O2 Flow Rate FiO2 06/21/16 12:00 97.6 64 20 148/78 99 06/21/16 08:00 97.1 64 18 153/80 98 06/21/16 08:00 78 06/21/16 05:22 12 06/21/16 04:36 97.5 79 20 172/85 99 06/20/16 21:39 97.6 80 20 149/80 98 06/20/16 20:00 64 06/20/16 15:45 97.3 76 18 166/87 97 I/O 06/20/16 06/20/16 06/20/16 06/21/16 06/21/16 06/21/16 07:00 15:00 23:00 07:00 15:00 23:00 Intake Total 360 ml Output Total 400 ml 600 ml 500 ml Balance -400 ml -600 ml -140 ml Intake Oral 360 ml Output Urine Total 400 ml 600 ml 500 ml Physical Exam GENERAL: Well developed, well nourished. No acute distress. HEENT: Jugular venous pressure is normal. CHEST: Lungs clear to auscultation bilaterally. Unlabored respiratory effort. CARDIAC: Regular rate and rhythm without S3, S4, or murmur. ABDOMEN: Soft, nontender, no hepatosplenomegaly. Bowel sounds present. EXTREMITIES: No clubbing, cyanosis, or edema. Assessment and Plan Problem List: (1) Dizziness Assessment and Plan: Continued episodic dizziness unclear etiology. No arrhythmias correlate to his symptoms. He has rare short-lived SVT, none of which has occurred with near syncopal or syncopal episodes. Pacer re- interrogated again today, no abnormalities seen. PVC density overall very low and PVC's are isolated. HR histograms show no HR's < ~65. According to patient SBP 80's during episode of dizziness last night, though no documentation of low BP in vitals. REC no additional recommendations except will try increasing back up rate on pacer to 70 beats per minute; OK for discharge from cardiac standpoint (2) Paroxysmal supraventricular tachycardia Assessment and Plan: No significant recent SVT. Rec continue metoprolol. Patient without any symptoms directly attributable to the SVT. (3) Status post placement of cardiac pacemaker (4) Hypertension Assessment and Plan: Suboptimal BP's. Rec consider resuming amlodipine, increasing metoprolol. Code Status full code Discussed Condition With patient and his daughter Problem Qualifiers (1) Hypertension: Qualified Code: I10 - Essential hypertension River Davidson MD Jun 21, 2016 14:07
[2016-06-21 16:01] VITALS: BP 147/80; PULSE 73; RESP 20; TEMP 96.4; O2SAT 98
[2016-06-21 20:00] VITALS: BP 166/89; PULSE 80; PULSE 85; RESP 18; TEMP 97.7; O2SAT 99
[2016-06-21] MEDS: ACETAMINOPHEN 325 MG TAB PO PRN (21:16)
[2016-06-22] MEDS: ACETAMINOPHEN 325 MG TAB PO PRN ×2 (03:47→13:03)
[2016-06-22 04:13] VITALS: BP 158/88; PULSE 86; RESP 18; TEMP 97.8; O2SAT 97
[2016-06-22] MEDS: LEVOTHYROXINE SODIUM 75 MCG TAB GT SCH (06:27)
[2016-06-22] MEDS: METOPROLOL TARTRATE 50 MG TAB PO SCH ×2 (06:27→13:03)
[2016-06-22 08:00] VITALS: PULSE 86
[2016-06-22] MEDS: ACETAMINOPHEN 500 MG CPLT G-TUBE PRN (09:38)
[2016-06-22] MEDS: FLUDROCORTISONE ACETATE 0.1 MG TAB GT SCH (09:38)
[2016-06-22] MEDS: SODIUM CHLORIDE 0.9% FLUSH 5 ML FLUSH FLUSH SCH (09:39)
[2016-06-22 11:51] VITALS: BP 169/82; PULSE 78; RESP 18; TEMP 97.8; O2SAT 98
--- NOTE | 2016-06-22 12:36 | HHI.PR ---
Subjective Remarks resting comfortably with no distress. no chest pain or sob. no further dizzy spells. daughter at the bedside. Objective Vitals Vital Signs Date Time Temp Pulse Resp B/P Pulse Ox O2 Delivery O2 Flow Rate FiO2 06/22/16 11:51 97.8 78 18 169/82 98 06/22/16 08:00 86 06/22/16 04:48 12 06/22/16 04:13 97.8 86 18 158/88 97 06/21/16 20:00 97.7 85 18 166/89 99 06/21/16 20:00 80 06/21/16 16:01 96.4 73 20 147/80 98 I/O 06/21/16 06/21/16 06/21/16 06/22/16 06/22/16 06/22/16 07:00 15:00 23:00 07:00 15:00 23:00 Intake Total 362 ml 240 ml Output Total 600 ml 500 ml 500 ml Balance -600 ml -138 ml -260 ml Intake Oral 360 ml 240 ml IV Total 2 ml Output Urine Total 600 ml 500 ml 500 ml # Voids 2 # Bowel Movements 1 Imaging Last Impressions Chest X-Ray 06/16/16 1259 Signed Impressions: Service Date/Time: Thursday, June 16, 2016 13:21 - CONCLUSION: No acute disease. No significant change has occurred. Arden Yi MD Objective Remarks GENERAL: This is a well-nourished, well-developed patient, in no apparent distress. CARDIOVASCULAR: Regular rate and regular rhythm without murmurs, gallops, or rubs. RESPIRATORY: Clear to auscultation. Breath sounds equal bilaterally. No wheezes , rales, or rhonchi. GASTROINTESTINAL: Abdomen soft, non-tender, nondistended. Normal, active bowel sounds MUSCULOSKELETAL: Extremities without clubbing, cyanosis, or edema. NEURO: Alert & Oriented x4 to person, place, time, situation. Moves all ext x4 Procedures none Medications and IVs Current Medications IV Flush 2 ml 2 ml UNSCH PRN IVF FLUSH AFTER USING IV ACCESS Last administered on 06/16/16t 14:15; Start 06/16/16 at 13:00; Stop 06/16/16 at 16:27; Status DC Sodium Chloride (NS 500 ml Inj) 500 ml @ 500 mls/hr ONCE ONCE IV Last administered on 06/16/16 13:15; Start 06/16/16 at 13:00; Stop 06/16/16 at 13:59 ; Status DC Acetaminophen (Tylenol 650 Mg/ 20 ml Liq) 650 mg ONCE ONCE PEG Last administered on 06/16/16 16:04; Start 06/16/16 at 16:00; Stop 06/16/16 at 16:01 ; Status DC IV Flush (NS Flush) 2 ml UNSCH PRN FLUSH FLUSH AFTER USING IV ACCESS; Start at 16:15 IV Flush (NS Flush) 2 ml BID FLUSH Last administered on 06/22/16 09:39; Start 06/16/16 at 21:00 Acetaminophen (Tylenol) 650 mg Q4H PRN PO TEMP > 100.4 Last administered on 06/22 03:47; Start 06/16/16 at 16:15 Ondansetron HCl (Zofran Inj) 4 mg Q6H PRN IVP NAUSEA OR VOMITING; Start at 16:15 Naloxone HCl (Narcan Inj) 0.4 mg UNSCH PRN IV SEE LABEL COMMENTS; Start at 16:15 Acetaminophen (Tylenol) 500 mg TID PRN PEG PAIN SCALE 1 TO 10 Last administered on 06/17/16 06:10; Start 06/16/16 at 16:30; Stop 06/17/16 at 09:36 ; Status DC Fludrocortisone Acetate (Florinef) 0.1 mg DAILY GT Last administered on 09:38; Start 06/17/16 at 09:00 Levothyroxine Sodium (Synthroid) 75 mcg DAILY@06 GT Last administered on 06:27; Start 06/17/16 at 06:00 Metoprolol Tartrate (Lopressor) 50 mg Q12HR PO Last administered on 06/19/16 09:18; Start 06/16/16 at 21:00; Stop 06/19/16 at 12:20; Status DC Acetaminophen 500 mg 500 mg Q4H PRN G-TUBE PAIN SCALE 1 TO 10 Last administered on 06/22/16 09:38; Start 06/17/16 at 10:00 Levetriacetam (Keppra 1000 Mg Inj) 100 ml @ 400 mls/hr ONCE ONCE IV ; Start at 16:00; Stop 06/17/16 at 16:14; Status Cancel Metoprolol Tartrate (Lopressor) 50 mg Q8HR PO Last administered on 06/22/16t 06: 27; Start 06/19/16 at 14:00 A/P Assessment and Plan Near syncope -with recurrent hypotensive episodes and questionable bradycardia last night- no further recurrence. Head CTA done 06/14/2016 revealed no vascular abnormalities CTA of the neck done 06/14/2016 revealed no evidence of significant stenosis EEG normal. neurology consult appreciated- Continue Florinef increased metoprolol to 50 mg three times daily. stop lisinopril;will consider adding amlodipine if BP remains elevated. cardiology evaluation appreciated; recommended increasing lopressor and adding amlodipine; this was d/w the daughter who's a neurologist and POA; she wanted him to stay on lopressor only at this time. cardiology follow-up appreciated and back-up rate on pacer was increased to 70 b/ min.cleared for discharge. Oral cancer status post revision Feeding tube in place 2 feeding only Patient does not like the tube feeding we have in the hospital may use his home regimen Osmolite 1.5 - calorie 6 cans a day Hypothyroidism continue home Synthroid 75 mcg daily DVT prophylaxis SCDs and SD sofiae Discharge Planning dc to rehab today. see med list. f/u with pcp and cardiology. d/w the patient and his daughter. d/w the RN and case management. time spent 32 min. Zuhair Diaz MD Jun 22, 2016 12:36
--- NOTE | 2016-06-22 12:37 | HHI.DS ---
Discharge Summary Admission Date Jun 16, 2016 at 15:45 Discharge Date: Jun 22, 2016 Admitting Diagnosis Near syncope s/p pacemaker placement 06/04/2016 (1) Near syncope ICD Code: R55 Diagnosis: Principal Procedures none Brief History - From Admission This is a 70-year-old male patient with past medical history which includes oral cancer status post multiple resections, osteomyelitis, hypothyroidism, sick sinus syndrome status post pacemaker placement June 04, 2016. Patient was recently admitted to [facility] on 06/12/2016 to 06/14/16 for near syncopal episode with reports of wide-complex tachycardia on ambulance telemetry evaluated by cardiology and medical team. Started on metoprolol and Florinef been discharged back to snf facility. Patient reports that yesterday he had 2 episodes of feeling slightly diaphoretic with blurred vision one around 8 AM and one around 11 AM, each lasting about one hour. Patient had another episode today around 8 AM where he felt diaphoretic had blurred vision and loss of bladder control. Patient believes his blood pressure was 80/40 at that time [facility] was summoned and patient was brought to the emergency department for further evaluation and treatment. Patient denies chest pain or shortness of breath. However does report his chest felt a little different, but denies specific palpitations or pain. Patient also denies slurring of speech numbness or tingling to any of his upper or lower extremities. Patient also denies focal weakness. 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 Patient was recently admitted to [facility] on 06/12/2016 to 06/14/16 for near syncopal episode with reports of wide-complex tachycardia on ambulance telemetry evaluated by cardiology and medical team. Started on metoprolol and Florinef been discharged back to snf facility. Imaging Last Impressions Chest X-Ray 06/16/16 1259 Signed Impressions: Service Date/Time: Thursday, June 16, 2016 13:21 - CONCLUSION: No acute disease. No significant change has occurred. Arden Yi MD PE at Discharge GENERAL: This is a well-nourished, well-developed patient, in no apparent distress. CARDIOVASCULAR: Regular rate and regular rhythm without murmurs, gallops, or rubs. RESPIRATORY: Clear to auscultation. Breath sounds equal bilaterally. No wheezes , rales, or rhonchi. GASTROINTESTINAL: Abdomen soft, non-tender, nondistended. Normal, active bowel sounds MUSCULOSKELETAL: Extremities without clubbing, cyanosis, or edema. NEURO: Alert & Oriented x4 to person, place, time, situation. Moves all ext x4 Hospital Course Near syncope -with recurrent hypotensive episodes and questionable bradycardia last night- no further recurrence. Head CTA done 06/14/2016 revealed no vascular abnormalities CTA of the neck done 06/14/2016 revealed no evidence of significant stenosis EEG normal. neurology consult appreciated- Continue Florinef increased metoprolol to 50 mg three times daily. stop lisinopril;will consider adding amlodipine if BP remains elevated. cardiology evaluation appreciated; recommended increasing lopressor and adding amlodipine; this was d/w the daughter who's a neurologist and POA; she wanted him to stay on lopressor only at this time. cardiology follow-up appreciated and back-up rate on pacer was increased to 70 b/ min.cleared for discharge. Oral cancer status post revision Feeding tube in place 2 feeding only Patient does not like the tube feeding we have in the hospital may use his home regimen Osmolite 1.5 - calorie 6 cans a day Hypothyroidism continue home Synthroid 75 mcg daily DVT prophylaxis SCDs and DS hose Pt Condition on Discharge: Good Discharge Disposition: Discharge to SNF Discharge Time: > 30 minutes Discharge Instructions DIET: Follow Instructions for: Heart Healthy Diet Activities you can perform: Regular-No Restrictions Follow up Referrals: Cardiology - 3-5 Days with River Davidson MD appointment on 10/2016. PCP Follow-up New Medications: Metoprolol Tartrate (Lopressor) 50 Mg Tab 50 MG PO Q12HR hypertension Days 30 Ref 0 TAB Continued Medications: Acetaminophen (Mapap) 500 Mg Tab 500 MG GT TID PRN PAIN Ref 0 TAB Azelastine Nasal [place] (Azelastine Nasal [place]) 0.15% [place] 1 SPRAY EACH NARE DIRECTED To each nostril. PRN ALLERGIES #1 Ref 0 BOTTLE Azelastine Nasal [place] (Azelastine Nasal [place]) 0.15% [place] 1 SPRAY EACH NARE BID To each nostril. Allergies #1 Ref 0 BOTTLE Clonazepam (Klonopin) 1 Mg Tab 1 MG GT TID PRN ANXIETY AND/OR AGITATION #20 Ref 0 TAB (This prescription has been renewed) Clonazepam (Clonazepam) 1 Mg Tab 1 MG GT BID anxiety #60 Ref 0 TAB (This prescription has been renewed) Dicyclomine (Bentyl) 10 Mg Cap 10 MG GT DAILY PRN SPASM Ref 0 CAP Fludrocortisone (Fludrocortisone) 0.1 Mg Tab 0.1 MG GT DAILY #30 Ref 0 TAB Folic Acid (Folic Acid) 400 Mcg Tab 400 MCG GT DAILY Nutritional Supplement Ref 0 TAB Levothyroxine (Levothyroxine) 75 Mcg Tab 75 MCG GT DAILY Thyroid #30 Ref 0 TAB Multiple Vitamins W/ Minerals (Centrum) 1 Tab 1 TAB GT DAILY Nutritional Supplement Ref 0 TAB Propylene Glycol Opth Drops (Systane Balance [employer] Opth Drops) 0.6% Soln 1 DROP EACH EYE TID PRN DRY EYE Ref 0 BOTTLE Sodium Fluoride (Dental) (Sf 5000 Plus) 1.1 % Cre 1 APPLIC GT DAILY Discontinued Medications: Amlodipine (Amlodipine) 5 Mg Tab 5 MG GT DAILY Blood Pressure Management #30 Ref 0 TAB Enalapril (Vasotec) 10 Mg Tab 10 MG PO BID #60 Ref 0 TAB Metoprolol Tartrate (Lopressor) 100 Mg Tab 100 MG GT BID #60 Ref 0 TAB Naproxen Sodium (Aleve) 220 Mg Tab 220 MG GT DAILY PRN Pain Management Ref 0 TAB Zuhair Diaz MD Jun 22, 2016 12:37
[2016-06-22] MEDS ORDERED: METO-309 GT (12:40)
== END 2016-06-22 18:44 | disposition home or self-care (01) ==
LOC: NEPA 12:46 → NEDA 15:45 → NEPHCDU 18:13
PROVIDERS: ADMIT Internal Medicine; ATTEND Internal Medicine
DX: R55 Syncope and collapse (principal); I47.1 Supraventricular tachycardia; I49.3 Ventricular premature depolarization; I10 Essential (primary) hypertension; R94.31 Abnormal electrocardiogram [ECG] [EKG]; R32 Unspecified urinary incontinence; E11.9 Type 2 diabetes mellitus without complications; E03.9 Hypothyroidism, unspecified; E78.00 Pure hypercholesterolemia, unspecified; Z95.0 Presence of cardiac pacemaker
CPT/HCPCS: 71010; 80048; 82533; 82550; 83735; 83880; 84484; 85025; 85610; 85730; 93005; 95819; 96360; 99285; G0378; J7040